=== PATIENT | male | born 1940 | race Caucasian/White ===

== ENCOUNTER → 2023-07-10 09:43 | Outpatient (REF) | payer OTHER, SELFPAY | LOC: RAD 09:43 | PROVIDERS: ATTENDING PHYSICIAN Physician Assistant; FAMILY PHYSICIAN Family Medicine | DX: I73.9 Peripheral vascular disease, unspecified (principal); I65.21 Occlusion and stenosis of right carotid artery | CPT/HCPCS: 93880; 93922; 93925 ==

== ENCOUNTER → 2024-06-19 10:15 | Outpatient (REF) | payer OTHER, SELFPAY | LOC: RAD 10:15 | PROVIDERS: ATTENDING PHYSICIAN Family Medicine | DX: I73.9 Peripheral vascular disease, unspecified (principal) | CPT/HCPCS: 93922; 93925 ==

== ENCOUNTER → 2024-06-27 15:16 | Outpatient (REF) | payer OTHER, SELFPAY | LOC: RAD 15:16 | PROVIDERS: ATTENDING PHYSICIAN Surgery Vascular Surgery; FAMILY PHYSICIAN Family Medicine | DX: Z98.890 Other specified postprocedural states (principal); I65.23 Occlusion and stenosis of bilateral carotid arteries | CPT/HCPCS: 93880 ==

== ENCOUNTER 2024-07-06 01:52 | Emergency (ER) | payer OTHER, SELFPAY ==
[2024-07-06 02:12] VITALS: BP 194/76
[2024-07-06 03:40] VITALS: BMI 23.7
[2024-07-06 03:42] VITALS: BP 178/75
--- NOTE | 2024-07-06 03:49 | ED.GENMED ---
History of Present Illness
General
Chief Complaint: Extremity Pain (non-traumatic)
Time Seen by Provider: 07/06/24 03:47
History of Present Illness
History of Present Illness:
TIME OF INITIAL ENCOUNTER: 3:50 AM
HPI: The patient presents with worsening right foot pain. He has known arterial insufficiency. He states that he had stents placed in the left lower extremity several years ago. The pain is now on the right side. The pain is more toward the
medial aspect. He is on aspirin. He is a former smoker.
EXAM:
GENERAL: Well appearing in no distress
HEENT: Moist oral mucosa
CARDIOVASCULAR: He has easily palpable femoral pulses bilaterally, left foot is dopplerable, right foot PT is dopplerable but I could not Doppler a right DP
PULMONARY: No respiratory distress, breath sounds are clear and equal
ABDOMEN: Soft with no peritoneal signs, no tenderness
NEUROLOGIC: Excellent strength all extremities, no coordination deficits
PSYCHIATRIC: Appropriate mental status, normal insight and judgement
EXTREMITIES: See above, bunion noted with crusting to the right foot
SKIN: No rash, no lesions
NUMBER AND COMPLEXITY OF PROBLEMS ADDRESSED AT THE ENCOUNTER
� Chronic conditions affecting care: Renal insufficiency, CAD/[place], vascular disease
� Acute Exacerbation and/or Progression of Chronic Illness: This is a worsening of a chronic issue
� Differential Diagnosis includes: Exacerbation of peripheral arterial disease, cellulitis, bunion
AMOUNT AND/OR COMPLEXITY OF DATA TO BE REVIEWED AND ANALYZED
� I performed an independent evaluation of and my interpretation is:
EKG:
CT:
X-rays:
Laboratory Studies:
Other:
� Review of other/old records: The patient had an ultrasound 2 weeks ago that showed severely decreased RIAZ measuring 0.36 down from 0.49, proximal profunda femoris is occluded SFA is extensively diseased reconstitution of
dampened monophasic continuous flow within the popliteal artery, monophasic pedal waveforms
� Clinical information was obtained by an independent historian:
� Prescriptions/Medications Considered but not given:
� Further testing considered but not performed: Considered CTA however the patient has known CKD with creatinine over 2
RISK OF COMPLICATIONS AND/OR MORBIDITY OR MORTALITY OF PATIENT MANAGEMENT
� Social determinants of health affecting care: Lives at home
� Discussion with other providers: I discussed case with Dr. Lam who recommends to hold off on CTA. He also recommends the patient follow-up with Dr. Fay as an outpatient.
� Escalation of care including admission/observation vs risk of discharge considered: The patient describes his symptoms as a slow progression and worsening over the past month or so. I reviewed the ultrasound report. The cap
refill is less than 1.5 seconds to the right foot. The patient at times tells me that there is no significant pain at other times describes the pain is rather severe and needs something for pain. Will give a very short course of Ultram.
ANY OTHER UPDATES:
Past History
Past History
ED Past Medical History: CAD, HTN, Hypercholesterolemia, NIDDM, [place] and Other
ED Past Surgical History: Cardiac (cardiac stent) and Other
Social History
Tobacco: Smoker
Alcohol: None
Drug: None
Personal:
Living: with family
Employment: Retired
Family History
Family History: Diabetes; Negative Early CAD
Phy Exam
Physical Exam
Physical Exam:
See HPI
Course
Orders/Labs/Results
Orders:
Orders
07/06/24 04:21
Tramadol HCl [Ultram] 50 mg PO NOW STA
Vital Signs
Initial and Last Documented VS:
Initial Vital Signs
Temp Pulse Resp BP Pulse Ox
36.9 C 65 20 194/76 98
07/06/24 02:12 07/06/24 02:12 07/06/24 02:12 07/06/24 02:12 07/06/24 02:12
Last Documented Vital Signs
Temp Pulse Resp BP Pulse Ox
36.9 C 66 18 178/75 99
07/06/24 02:12 07/06/24 03:42 07/06/24 03:42 07/06/24 03:42 07/06/24 03:42
*Critical Care Note
Total Time (30-74mins, 75-104mins- exclusive of procedures): Not Applicable
ED Attending Note
-
Portions of this chart may have been created with voice recognition software.� Occasional wrong word or��sound alike� substitutions may have occurred due to the inherent limitations of voice recognition software.
Discharge Plan
Departure
Patient Disposition: Home (Routine Discharge)
Date of Disposition: 07/06/24
Time of Disposition: 04:21
Patient with high blood pressure during this ER visit?: Yes
Discharge Problem:
PAD (peripheral artery disease)
Instructions: Peripheral artery disease and claudication, BLOOD PRESSURE
Prescriptions:
New
tramadol 50 mg tablet
50 mg PO BID PRN (Reason: Pain) Qty: 14 0RF
No Action
lisinopril 5 MG tablet
5 mg PO DAILY
ezetimibe 10 MG tablet
10 mg PO DAILY
nitroglycerin 0.4 MG tablet, sublingual
0.4 mg sublingual [id number] PRN (Reason: chest pain) Qty: 25 2RF
acetaminophen 325 MG tablet
650 mg PO Q4HPRN PRN (Reason: mild pain)
clopidogrel 75 MG tablet
75 mg PO DAILY
amlodipine 10 MG tablet
10 mg PO DAILY
metoprolol tartrate 25 MG tablet
25 mg PO BID
cholecalciferol (vitamin D3) 1,000 UNITS tablet
1,000 units PO DAILY
isosorbide mononitrate 30 MG tablet extended release 24 hr
30 mg PO DAILY
tamsulosin 0.4 MG capsule
0.4 mg PO DAILY
insulin glargine [Basaglar KwikPen U-100 Insulin] 100 UNIT/ML insulin pen
12 units SC HS
apixaban [Eliquis] 5 MG tablet
5 mg PO BID
Patient Comments:
patient last day is 01/06/21
sodium bicarbonate 650 MG tablet
650 mg PO TID Qty: 30 1RF
Referrals:
UNKNOWN - PT DOES,NOT KNOW [Family Provider] -
Activity Restrictions/Additional Instructions:
I spoke to Dr. Lam, partner of Dr. Fay. We agreed to hold off on the CTA for now as your kidney function is impaired. Your creatinine from this past February according to your records was over 2. If we were not doing CTA tonight it can
make your kidney function worse. He said that he would speak to Dr. Fay and let him know that you were in the Emergency Department. I recommend you call Dr. Fay's office tomorrow to see what more they could do for you. I am sending a prescription
for Ultram to your pharmacy.
Interventions
Interventions:
*Risk Screen - Suicide Last Done: 07/06/24 02:12
*General Assessment Last Done: 07/06/24 02:12
*Neglect/Abuse Screening Last Done: 07/06/24 02:12
*ED- Fall Risk Assessment Last Done: 07/06/24 02:12
*ED COVID-19 Vaccine History Last Done: 07/06/24 02:20
*Nursing Disposition Last Done: 07/06/24 04:38
ED-Skin Assessment Last Done: 07/06/24 04:17
ED-Peripheral Vascular Assessment Last Done: 07/06/24 04:17
ED-Musculoskeletal Assessment Last Done: 07/06/24 04:17
Discharge Date and Time
Discharge Date/Time: 07/06/24 04:39
Print Language: BRITISH
[2024-07-06] MEDS: ULTRAM 50 MG PO (04:27)
== END 2024-07-06 04:39 | disposition home or self-care (01) ==
LOC: EMR 01:52
PROVIDERS: EMERGENCY PHYSICIAN Emergency Medicine
DX: E11.51 Type 2 diabetes mellitus with diabetic peripheral angiopathy without gangrene (principal); I25.10 Atherosclerotic heart disease of native coronary artery without angina pectoris; I10 Essential (primary) hypertension; E78.00 Pure hypercholesterolemia, unspecified; I25.2 Old myocardial infarction; Z79.82 Long term (current) use of aspirin; Z83.3 Family history of diabetes mellitus; Z95.5 Presence of coronary angioplasty implant and graft
CPT/HCPCS: 99282

== ENCOUNTER 2024-07-10 08:25 | Inpatient (IN) | payer OTHER, SELFPAY ==
[2024-07-08 18:26] VITALS: BP 178/68
[2024-07-08 18:41] LABS: % Basophils 0.8 % (0-2); % Eosinophils 1.9 % (0-6); % Immature Granulocytes 0.3 % (0-0.5); % Lymphocytes 23.4 % (20.5-51.1); % Monocytes 8.8 % (1.7-9.3); % Neutrophils 64.8 % (42.2-75.2); Absolute Basophils 0.1 10^3/uL (0-0.2); Absolute Eosinophils 0.1 10^3/uL (0-0.7); Absolute Lymphocytes 1.8 10^3/uL (1.2-3.4); Absolute Monocytes 0.7 10^3/uL (0.1-0.6); Absolute Neutrophils 4.9 10^3/uL (1.4-6.5); Hematocrit 29.6 % (39.0-52.0); Hemoglobin 9.6 g/dL (13.0-18.0); Mean Corp Hgb Conc. 32.4 g/dL (33.0-37.0); Mean Corpuscular Hgb 30.7 pg (27.0-31.0); Mean Corpuscular Volume 94.6 fL (80.0-94.0); Mean Platelet Volume 10.8 fL (7.4-10.4); Nucleated Red Blood Cells % 0 % (-); Platelet Count 231 10^3/uL (130-400); Red Blood Cell Count 3.13 10^6/uL (4.70-6.10); Red Cell Dist. Width 15.9 % (11.5-14.5); White Blood Cell Count 7.5 10^3/uL (4.8-10.8)
[2024-07-08 18:51] LABS: APTT 29.1 Sec (23.4-35.0)
[2024-07-08 18:58] LABS: ALT (SGPT) 15 U/L (0-50); AST (SGOT) 17 U/L (17-59); Albumin 3.7 g/dl (3.5-5.0); Alkaline Phosphatase 59 U/L (38-126); Blood Urea Nitrogen 44 mg/dl (9-20); Calcium 9.8 mg/dl (8.4-10.2); Carbon Dioxide 31 mmol/L (22-30); Chloride 102 mmol/L (98-107); Glucose 304 mg/dl (70-99); Potassium 4.5 mmol/L (3.5-5.1); Sodium 140 mmol/L (135-145); Total Bilirubin 0.4 mg/dl (0.2-1.3); Total Protein 6.8 g/dl (6.3-8.2); eGFR 32.71
[2024-07-08 21:55] VITALS: BP 175/62
[2024-07-08 22:00] VITALS: BP 159/63
--- NOTE | 2024-07-08 22:08 | ED.GENMED ---
History of Present Illness
<Shara Gardner PA-C - Last Filed: 07/09/24 01:53>
General
Chief Complaint: Vascular Symptoms
Source: patient
Exam Limitations: none
Time Seen by Provider: 07/08/24 21:33
Nursing documentation reviewed up to this point in time: agreed with
History of Present Illness
History of Present Illness:
Patient is an 84-year-old male history of PAD, CAD, hypertension, hyperlipidemia, diabetes presenting to the emergency department with right leg pain. Patient states pain has been gradually worsening and is now keeping up at night. He reports a
lengthy history of arterial disease in his bilateral lower legs. He states that pain in his right leg is gotten worse over the past few weeks. He states pain is not but acute onset and seemed gradual in nature. He denies any numbness or weakness
in his lower legs. Patient states that he was in the emergency department 2 nights ago with similar complaint and discharged home with a pain medication.
He states that he is scheduled to have a CTA aorta with runoff on July 18. However�given his pain became worse he spoke to his vascular surgeon, Dr. Fay who recommended that he come to the emergency department for CTA imaging and admission.
Patient denies any chest pain, shortness of breath, or fevers.
Past History
<Shara Gardner PA-C - Last Filed: 07/09/24 01:53>
Past History
ED Past Medical History: CAD, HTN, Hypercholesterolemia, NIDDM, [place] and Other
ED Past Surgical History: Cardiac (cardiac stent) and Other
Social History
Tobacco: Smoker
Alcohol: None
Drug: None
Personal:
Living: with family
Employment: Retired
Family History
Family History: Diabetes; Negative Early CAD
Review of Systems
<Shara Gardner PA-C - Last Filed: 07/09/24 01:53>
Review of Systems
Allergies reviewed?: Yes
All Other Systems: ROS reviewed and negative except as documented in HPI and ROS
Phy Exam
<Shara Gardner PA-C - Last Filed: 07/09/24 01:53>
Physical Exam
Physical Exam:
Vitals: Hypertensive, otherwise vital signs stable. Afebrile
General: Patient is well appearing, no acute distress. Nontoxic appearing
Skin: Warm and dry, no rashes or lesions
Head: Normocephalic, atraumatic
Eyes: Sclera nonicteric. EOMs intact. No nystagmus.
Throat: Protecting airway
Neck: Normal ROM, no cervical spine tenderness, no meningismus
Cardiac: Regular rate and rhythm, no murmurs.
Pulm: Normal respiratory effort, no wheezes, rales, rhonchi heard on exam.
Abdomen: No abdominal tenderness.
Extremities: Easily palpable bilateral femoral pulses. Right DP pulse by Doppler. Left DP pulse by Doppler. Capillary refill bilateral lower extremities normal. Sensation grossly intact in bilateral lower extremities.
Neuro: AAOx3. Grossly intact.
Psychiatric: Normal affect.
Course
<Shara Gardner PA-C - Last Filed: 07/09/24 01:53>
Orders/Labs/Results
Orders:
Orders
07/08/24 18:34
Complete Blood Count/With Diff Urgent
Comprehensive Metabolic Panel Urgent
PTT Urgent
07/08/24 23:36
Insulin Aspart [NOVOLOG vial] 4 units SC NOW STA
07/08/24 23:45
0.9% Sodium Chloride 1000 ml [Nss] 1,000 ml IV 80 mls/hr
Abnormal Lab Results
07/08/24
18:34
RBC 3.13 L 10^6/uL
(4.70-6.10)
Hgb 9.6 L g/dL
(13.0-18.0)
Hct 29.6 L %
(39.0-52.0)
MCV 94.6 H fL
(80.0-94.0)
MCHC 32.4 L g/dL
(33.0-37.0)
RDW 15.9 H %
(11.5-14.5)
MPV 10.8 H fL
(7.4-10.4)
Absolute Monos (auto) 0.7 H 10^3/uL
(0.1-0.6)
Carbon Dioxide 31 H mmol/L
(22-30)
BUN 44 H mg/dl
(9-20)
Creatinine 2.0 H mg/dL
(0.7-1.3)
Glucose 304 H mg/dl
(70-99)
07/08/24 18:34
07/08/24 18:34
Vital Signs
Initial and Last Documented VS:
Initial Vital Signs
Temp Pulse Resp BP Pulse Ox
97.8 F 62 18 178/68 99
07/08/24 18:26 07/08/24 18:26 07/08/24 18:26 07/08/24 18:26 07/08/24 18:26
Last Documented Vital Signs
Temp Pulse Resp BP Pulse Ox
97.8 F 57 17 181/50 97
07/08/24 18:26 07/08/24 23:00 07/08/24 23:00 07/08/24 23:00 07/08/24 23:00
<Blue Hernandez, DO - Last Filed: 07/08/24 23:19>
Orders/Labs/Results
Orders:
Orders
07/08/24 18:34
Complete Blood Count/With Diff Urgent
Comprehensive Metabolic Panel Urgent
PTT Urgent
07/08/24 23:36
Insulin Aspart [NOVOLOG vial] 4 units SC NOW STA
07/08/24 23:45
0.9% Sodium Chloride 1000 ml [Nss] 1,000 ml IV 80 mls/hr
Abnormal Lab Results
07/08/24
18:34
RBC 3.13 L 10^6/uL
(4.70-6.10)
Hgb 9.6 L g/dL
(13.0-18.0)
Hct 29.6 L %
(39.0-52.0)
MCV 94.6 H fL
(80.0-94.0)
MCHC 32.4 L g/dL
(33.0-37.0)
RDW 15.9 H %
(11.5-14.5)
MPV 10.8 H fL
(7.4-10.4)
Absolute Monos (auto) 0.7 H 10^3/uL
(0.1-0.6)
Carbon Dioxide 31 H mmol/L
(22-30)
BUN 44 H mg/dl
(9-20)
Creatinine 2.0 H mg/dL
(0.7-1.3)
Glucose 304 H mg/dl
(70-99)
07/08/24 18:34
07/08/24 18:34
Vital Signs
Initial and Last Documented VS:
Initial Vital Signs
Temp Pulse Resp BP Pulse Ox
97.8 F 62 18 178/68 99
07/08/24 18:26 07/08/24 18:26 07/08/24 18:26 07/08/24 18:26 07/08/24 18:26
Last Documented Vital Signs
Temp Pulse Resp BP Pulse Ox
97.8 F 57 17 181/50 97
07/08/24 18:26 07/08/24 23:00 07/08/24 23:00 07/08/24 23:00 07/08/24 23:00
<Shara Gardner PA-C - Last Filed: 07/09/24 01:53>
MDM/Problems Addressed
Differential Diagnosis Includes:
Not limited to: Peripheral arterial disease, acute arterial occlusion, venous stasis, etc.
MDM/Problems Addressed:
84-year-old male with known peripheral arterial disease presenting with worsening pain in right lower extremity. Pain not acute onset in nature. He is ambulating without difficulty. No weakness or sensory deficit of right lower extremity.
Patient scheduled for CTA with runoff in a few weeks. Recently seen in ED 2 days ago and discharged due to elevated kidney function and concern with pursuing CTA. Vitals and physical exam as above.
Overall impression is likely acute worsening in patient's peripheral arterial disease. Did review patient's arterial ultrasound performed in mid June which shows worsening disease specifically in right lower extremity with decreasing RIAZ. Labs
obtained in triage and reviewed. Anemia noted which appears chronic for patient likely secondary to CKD. Renal insufficiency also noted however creatinine of 2 seems to be patient's baseline dating back to 2020. Case was discussed with vascular
surgery.
Exam not consistent with acute ischemic limb. He has palpable femoral pulses bilaterally and bilateral dopplerable DP pulses. However�patient does seem to have acute worsening his peripheral arterial disease with significant discomfort. I feel
patient would likely require CTA despite elevated kidney function. No evidence of acute infectious process. Will admit patient to hospital for pain control, vascular surgery consult, likely CTA aorta with runoff for better evaluation. Patient
accepted to hospitalist service in stable condition. Patient seen with attending physician.
Chronic conditions affecting care:
PAD, CAD, hypertension, hyperlipidemia, diabete
Acute Exacerbation and/or Progression of Chronic Illness:
Acute worsening of peripheral arterial disease, acutely hypertensive, acute hyperglycemia
<Shara Gardner PA-C - Last Filed: 07/09/24 01:53>
*Pulse Oximetry
Patient hypoxic: no
*EKG
Interpreted by ED Provider?: NA
*Student Success Advisor Interpretation
Rate: Student Success Advisor- N/A
*Critical Care Note
Total Time (30-74mins, 75-104mins- exclusive of procedures): Not Applicable
Data Reviewed
Review of Other/Old Records Reveals: Radiology Studies (Arterial ultrasound from 06/19/2024 which showed severely decreased RIAZ of right lower extremity measuring 0.36 down from 0.49) and Discharge Summary (ED discharge summary from 07/06/2024 with
peripheral arterial disease)
<Shara Gardner PA-C - Last Filed: 07/09/24 01:53>
Patient Management
Discussion with other providers: Hospitalist and Carrier Associate (Case discussed with vascular surgery)
Escalation/DeEscalation of care consider admission/obs:
Admit for vascular surgery consult, possible CTA with runoff
ED Attending Note
<Shara Gardner PA-C - Last Filed: 07/09/24 01:53>
-
Portions of this chart may have been created with voice recognition software.� Occasional wrong word or��sound alike� substitutions may have occurred due to the inherent limitations of voice recognition software.
<Blue Hernandez DO - Last Filed: 07/08/24 23:19>
ED Attending Note
Patient seen and examined by attending physician: Yes
I performed the substantive portion of visit, reviewed & personally made and approve the management plan that is documented in note by myself or KOKO.: Yes
ED Attending Note:
Seen with INO examined independently elderly male with peripheral vascular disease, but of a poor historian was seen here recently for similar complaints apparently thought process was to hold on CT angiogram due to elevated creatinine patient
returns this evening with rest pain feet appear to be perfused recent arterial Doppler noted we will try to track down some records to see what the plan is
Discharge Plan
Departure
Patient Disposition: Admit
Date of Disposition: 07/08/24
Time of Disposition: 23:37
Presentation/result/management discussed w/ accepting MD/DO: Hospitalist
Discharge Problem:
PAD (peripheral artery disease)
Prescriptions:
No Action
lisinopril 5 MG tablet
5 mg PO DAILY
ezetimibe 10 MG tablet
10 mg PO DAILY
nitroglycerin 0.4 MG tablet, sublingual
0.4 mg sublingual [id number] PRN (Reason: chest pain) Qty: 25 2RF
acetaminophen 325 MG tablet
650 mg PO Q4HPRN PRN (Reason: mild pain)
clopidogrel 75 MG tablet
75 mg PO DAILY
amlodipine 10 MG tablet
10 mg PO DAILY
metoprolol tartrate 25 MG tablet
25 mg PO BID
cholecalciferol (vitamin D3) 1,000 UNITS tablet
1,000 units PO DAILY
isosorbide mononitrate 30 MG tablet extended release 24 hr
30 mg PO DAILY
tamsulosin 0.4 MG capsule
0.4 mg PO DAILY
insulin glargine [Basaglar KwikPen U-100 Insulin] 100 UNIT/ML insulin pen
12 units SC HS
apixaban [Eliquis] 5 MG tablet
5 mg PO BID
Patient Comments:
patient last day is 01/06/21
sodium bicarbonate 650 MG tablet
650 mg PO TID Qty: 30 1RF
tramadol 50 mg tablet
50 mg PO BID PRN (Reason: Pain) Qty: 14 0RF
Referrals:
Birgit Gardner MD [Family Provider] -
Interventions
Interventions:
*Risk Screen - Suicide Last Done: 07/08/24 21:04
*General Assessment Last Done: 07/08/24 18:28
*Neglect/Abuse Screening Last Done: 07/08/24 21:03
*ED- Fall Risk Assessment Last Done: 07/08/24 21:03
*ED COVID-19 Vaccine History Last Done: 07/08/24 21:03
ED- Cardiac Assessment Last Done: 07/08/24 20:59
ED- Pulmonary Assessment Last Done: 07/08/24 20:59
ED-Peripheral Vascular Assessment Last Done: 07/08/24 20:59
ED-Skin Assessment Last Done: 07/08/24 20:59
Discharge Date and Time
Print Language: [place]
[2024-07-08 23:00] VITALS: BP 181/50
[2024-07-09] VITALS (9 sets, daily range): BP systolic 117–194; BP diastolic 44–78; BMI 24.7
[2024-07-09] MEDS: NSS 1000 IV (00:06)
[2024-07-09] MEDS: NOVOLOG vial 4 UNITS SC (00:07)
--- NOTE | 2024-07-09 02:07 | HPS.HSE ---
Family Physician
-
Family Physician: Birgit Gardner
Chief Complaint
-
RLE Pain
History of Present Illness
Patient is an 84y M with PMH significant for ASCVD, DM-II and CKD IV who presents to ED for evaluation of PAD / LE pain. Patient states that he has been having increasing rest pain in the R > L LEs over the past several weeks. he has been
evaluated by his Vascular Surgeon and ABIs have shown significant decrease in perfusion specifically in the RLE. CT Angio was discussed for further evaluation; however, there was concern regarding patient's renal function. Some changes were made
as an outpatient; however, no significant improvement in his renal function was appreciated.
Patient was referred to the ED for admission by Vascular Surgery for further evaluation.
Medical History
Past Medical History
Past Medical History: Reports Other
Additional Past Medical History:
ASCVD (CAD, Carotid Disease, PAD, TIA)
Hypertension
DM-II
CKD IV
Hypothyroidism
BPH
NAFLD
Anemia of CKD
Rosacea
Nephrolithiasis
Past Surgical History: Reports Other
Additional Past Surgical History:
PTCA with Stent
Left SFA Stent
Left Carotid Stent
Right CEA
Cystoscopy / Stent
Bilateral Inguinal Herniorrhaphy
Social History
Tobacco: Smoker
Alcohol: None
Drug: None
Family History
Family History: Not pertinent
Allergies / Home Medications
Allergies reflects when Allergies were last updated in [facility].
Home Medications with original date entered in [facility]
Allergy/Medication List:
Allergies
Allergy/AdvReac Type Severity Reaction Status Date / Time
[id number] Reductase Allergy leg pain, Verified 07/06/24 02:12
Inhibitor Myalgias
[Statins: Hmg-Coa Reductase
Inhibito]
Home Medications
ezetimibe 10 mg tablet 10 mg PO DAILY High cholesterol 11/24/16
nitroglycerin 0.4 mg sublingual tablet 0.4 mg sublingual [id number] PRN chest pain ##25 11/25/16
amlodipine 10 mg tablet 10 mg PO DAILY Blood pressure 11/13/20
cholecalciferol (vitamin D3) 25 mcg (1,000 unit) tablet 1,000 units PO DAILY Supplement 11/13/20
isosorbide mononitrate 30 mg tablet,extended release 24 hr 30 mg PO DAILY Blood pressure 11/13/20
metoprolol tartrate 25 mg tablet 50 mg PO BID Blood pressure 11/13/20
tamsulosin 0.4 mg capsule 0.4 mg PO DAILY Urinary issue 11/13/20
insulin glargine 100 unit/mL (3 mL) subcutaneous pen (Basaglar KwikPen U-100 Insulin) 16 units SC HS 11/23/20
aspirin 81 mg chewable tablet 81 mg PO DAILY 07/09/24
empagliflozin 10 mg tablet (Jardiance) 10 mg PO DAILY 07/09/24
ferrous gluconate 324 mg (38 mg iron) tablet 324 mg PO DAILY 07/09/24
finasteride 5 mg tablet 5 mg PO DAILY 07/09/24
nateglinide 120 mg tablet 120 mg PO TID 07/09/24
sodium bicarbonate 650 mg tablet 1,300 mg PO BID 07/09/24
Review of Systems
-
History Source: Patient
A 12 point ROS was completed and negative except as noted: Yes
Constitutional: Denies Fever or Chills
Respiratory: Denies Cough or Trouble Breathing
Cardiac: Denies Chest Pain or Palpitations
Abdomen/GI: Denies Abdominal Pain, Nausea, Vomiting or Diarrhea
: Denies Dysuria or Frequency
Musculoskeletal: Reports Other (Foot / leg pain.); Denies Joint Pain or Edema
Neurological: Denies Dizzy or Headache
Psych: Denies Depression or Anxiety
Physical Exam
Vital Signs
Vital Signs
Temp Pulse Resp BP Pulse Ox
97.8 F 57 17 181/50 97
07/08/24 18:26 07/08/24 23:00 07/08/24 23:00 07/08/24 23:00 07/08/24 23:00
Physical Exam
General: Other (84y M in no acute distress.)
HEENT: Moist mucous membranes and PERRLA
Respiratory: Clear; No Wheezes, Rales or Rhonchi
Cardiac: S1/S2, Regular Rhythm and Murmur (III/ RUBA)
GI: Soft, Non Tender, Non Distended and Normal Bowel Sounds
Musculoskeletal: No Clubbing, No Cyanosis and No Edema
Skin: Other (Small callused lesion over the R MTP joint. No discharge, erythema, etc.)
Neuro: AO x 3
Hematologic/Lymphatic: Other (Pulses not palpable in b/l feet. Appreciated by Doppler.)
Laboratory Results
-
07/08/24 18:34
07/08/24 18:34
Laboratory Results
APTT 29.1 Sec (23.4-35.0) 07/08/24 18:34
Total Bilirubin 0.4 mg/dl (0.2-1.3) 07/08/24 18:34
AST 17 U/L (17-59) 07/08/24 18:34
ALT 15 U/L (0-50) 07/08/24 18:34
Alkaline Phosphatase 59 U/L (38-126) 07/08/24 18:34
Impression/Plan
-
A/P: Patient is an 84y M with PMH significant for ASCVD, hypertension and CKD IV who presents to ED at the direction of Vascular Surgery for evaluation of limb threatening ischemia.
ASCVD / PAD
Limb Threatening Ischemia - RLE
- Observe overnight for further evaluation and treatment.
- Patient requires further evaluation with possible dx / tx angiography.
- Vascular Surgery consulted for further recommendations.
- Defer specific studies to them.
- Continue current med regimen including ASA, statin, etc.
CKD IV
- Stable. Renal function is stable.
- Unlikely that SCr will improve to any significant degree as this appears to be baseline.
- Hold Jardiance acutely.
- Gentle IVFs overnight.
- Nephrology consult for additional recommendations / renal protection strategies.
- Follow for changes in renal function following any angio / dye load procedures.
Benign Hypertension
- Stable. Continue current med regimen.
DM-II
- Stable. Hold oral medications acutely.
- Continue basal insulin.
- Follow glucose and cover with SSI as needed.
- Update A1C.
Hypothyroidism
- Stable. Continue T4 supplementation.
BPH
- Stable. Continue tamsulosin / finasteride.
- Bladder scan protocol.
Anemia of Chronic Disease
- Stable. Hgb is at / near known baseline.
- Continue iron supplementation.
- Follow for any changes.
DVT Prophylaxis: Subcut heparin
Code Status: DNR
[2024-07-09 05:17] LABS: Hematocrit 30.6 % (39.0-52.0); Hemoglobin 10.2 g/dL (13.0-18.0); Mean Corp Hgb Conc. 33.3 g/dL (33.0-37.0); Mean Corpuscular Hgb 30.8 pg (27.0-31.0); Mean Corpuscular Volume 92.4 fL (80.0-94.0); Mean Platelet Volume 11.1 fL (7.4-10.4); Platelet Count 226 10^3/uL (130-400); Red Blood Cell Count 3.31 10^6/uL (4.70-6.10); Red Cell Dist. Width 15.6 % (11.5-14.5); White Blood Cell Count 8.8 10^3/uL (4.8-10.8)
[2024-07-09 05:44] LABS: Blood Urea Nitrogen 43 mg/dl (9-20); Calcium 9.9 mg/dl (8.4-10.2); Carbon Dioxide 25 mmol/L (22-30); Chloride 107 mmol/L (98-107); Estimated Creatinine Clearance 30 ml/min; Glucose 165 mg/dl (70-99); Potassium 4.3 mmol/L (3.5-5.1); Sodium 143 mmol/L (135-145); eGFR 37.12
[2024-07-09 07:58] LABS: Glucose - Point of Care 221 mg/dl (70-99)
[2024-07-09] MEDS: SODIUM BICARBONATE 1300 MG PO ×2 (08:59→20:00)
[2024-07-09] MEDS: PROSCAR 5 MG PO (08:59)
[2024-07-09] MEDS: HEPARIN 5000 UNITS SC ×2 (09:00→20:00)
[2024-07-09] MEDS: LOPRESSOR 50 MG PO ×2 (09:00→20:00)
[2024-07-09] MEDS: VITAMIN D3 (cholecalciferol) 25 MCG PO (09:00)
[2024-07-09] MEDS: LOW STRENGTH ASPIRIN 81 MG PO (09:00)
[2024-07-09] MEDS: FLOMAX 0.4 MG PO (09:00)
[2024-07-09] MEDS: NORVASC 10 MG PO (09:00)
[2024-07-09] MEDS: IMDUR (EXTENDED RELEASE) 30 MG PO (09:04)
[2024-07-09] MEDS: TYLENOL 650 MG PO (09:06)
[2024-07-09 09:09] LABS: Glycohemoglobin (HgbA1c) 10.3 % (4.0-5.6)
[2024-07-09] MEDS: NOVOLOG FLEXPEN-LOW RESISTANCE 2 UNITS SC ×2 (09:19→13:05)
--- NOTE | 2024-07-09 09:28 | CON.VAS ---
Consultation
Consultation Request
Date/Time Consultation Performed: 07/09/24 1000
Requesting Provider: Hospitalist
Performing Provider: Nory Yañez, POLICE OFFICER BOOKING-C for Chase Fay MD
Reason for Consultation: Right lower extremity chronic limb threatening ischemia
Medical History
-
Chief Complaint: Right lower extremity foot pain
History of Present Illness:
This is an 84-year-old male with significant past medical history for hypercholesterolemia, rosacea, coronary artery disease, peripheral vascular disease, carotid stenosis, WI, BPH, hypothyroidism, aortic atherosclerosis, diabetes, anemia, GERD,
hypertension, and CKD stage IV who presented to [facility] ED on 07/08/2024 with reports of continued right foot rest pain. Patient's daughter at bedside who is also contributing to HPI. Patient and daughter endorse that for over the past 3 weeks
patient has been experiencing life-limiting claudication with persistent rest pain that has made sleeping at night nearly impossible. Both daughter and patient endorse that he did not have an acute change to pain but ultimately felt he could not
continue with current right foot pain, which prompted ED evaluation. Of note patient is known to our service and sees Dr. Chase Fay, he was last seen in our office on 07/02/2024, he had obtained arterial duplex with RIAZ/TBI and it was noted that he
had a decrease in his right sided RIAZ from 0.49 to 0.36 and TBI down to 0.16, with an accompanying monophasic waveforms suggestive of inflow disease. Prior to devising surgical plan Dr. Fay wanted to obtain CT angio aorta with runoff, however, due
to his CKD stage IV arrangements needed to be made with IV hydration and clearance from nephrology prior to obtaining study, whilst this was being coordinated patient decided he could no longer tolerate right foot pain hence presentation to ED
yesterday. Currently he reports pain at right foot is tolerable and he is resting comfortably in stretcher, he does endorse that he is extremely fatigued as he has right foot pain interrupts his sleep multiple times a night. Denies motor changes or
decrease sensation at right foot, endorses that he does have peripheral sensation but it is blunted with his history of peripheral neuropathy. He does continue to smoke.
Past Medical History
Past Medical History: CAD, GERD, HTN, Hypercholesterolemia, Hypothyroidism, IDDM, WI and Other (rosacea, peripheral vascular disease, carotid stenosis, BPH, aortic atherosclerosis, anemia, and CKD stage IV)
Past Surgical History: Other (Right carotid endarterectomy 2000, left carotid artery stenting, cardiac catheterization with PCI 2010, bilateral inguinal hernia repair 2020, right TCAR 2020)
Social History
Tobacco: Smoker
Personal: Single
Living: With Family
Employment: Retired
Allergies / Home Medications
Allergy/AdvReac Type Severity Reaction Status Date / Time
Bfukkse-WGU-LhK Reductase Allergy leg pain, Verified 07/06/24 02:12
Inhibitor Myalgias
[Statins: Hmg-Coa Reductase
Inhibito]
�Medication �Instructions �Recorded �Confirmed �Type
ezetimibe 10 mg tablet 10 mg PO DAILY High cholesterol 11/24/16 07/09/24 History
nitroglycerin 0.4 mg sublingual 0.4 mg sublingual [id number] PRN 11/25/16 07/09/24 Rx
tablet chest pain ##25
amlodipine 10 mg tablet 10 mg PO QPM Blood pressure 11/13/20 07/09/24 History
cholecalciferol (vitamin D3) 25 1,000 units PO DAILY Supplement 11/13/20 07/09/24 History
mcg (1,000 unit) tablet
isosorbide mononitrate 30 mg 30 mg PO DAILY Blood pressure 11/13/20 07/09/24 History
tablet,extended release 24 hr
metoprolol tartrate 25 mg tablet 50 mg PO BID Blood pressure 11/13/20 07/09/24 History
acetaminophen 325 mg tablet 650 mg PO Q6HPRN PRN mild pain 07/09/24 07/09/24 History
(Tylenol)
aspirin 81 mg chewable tablet 81 mg PO DAILY 07/09/24 07/09/24 History
finasteride 5 mg tablet 5 mg PO QPM 07/09/24 07/09/24 History
insulin glargine 100 unit/mL (3 16 unit SC HS 07/09/24 07/09/24 History
mL) subcutaneous pen (Lantus
Solostar U-100 Insulin)
nateglinide 120 mg tablet 120 mg PO AC 07/09/24 07/09/24 History
silodosin 8 mg capsule 8 mg PO QPM 07/09/24 07/09/24 History
sodium bicarbonate 650 mg tablet 1,300 mg PO BID 07/09/24 07/09/24 History
Review of Systems
-
History Source: Patient
Constitutional: Reports No Symptoms
EENT: Reports No Symptoms
Respiratory: Reports No Symptoms
Cardiac: Reports No Symptoms
Vascular: Reports Leg Pain / Claudication
Abdomen/GI: Reports No Symptoms
: Reports No Symptoms
Musculoskeletal: Reports Muscle Pain
Skin: Reports Other (Increased reddened right foot)
Neurological: Reports No Symptoms
Endocrine: Reports No Symptoms
Physical Exam
Vital Signs
Temp Pulse Resp BP Pulse Ox
97.8 F 49 12 157/61 99
07/08/24 18:26 07/09/24 02:15 07/09/24 02:15 07/09/24 02:00 07/09/24 04:32
Lab Results
07/09/24 05:06
07/09/24 05:06
Physical Exam
General: No Apparent Distress
HEENT: Normocephalic, Anicteric and Atraumatic
Respiratory: Non Labored Respirations
Cardiac: Negative JVD
GI: Soft, Non Tender and Non Distended
Musculoskeletal: No Edema
Skin: Dry and Other (Right foot cooler in comparison to left)
Neuro: AO x 3
Pulses: Bilateral Femoral: +2, Bilateral Dorsalis Pedis: Doppler and Bilateral Posterior Tibial: Doppler
Assessment / Plan
-
Assessment: 84-year-old male with peripheral arterial disease and reports of worsening rest pain at right foot with decreased RIAZ/TBI and monophasic waveform on arterial duplex, appropriate diagnosis for chronic limb threatening ischemia
Plan:
Prior to finalization of vascular surgical revascularization plan will require CTA aorta with runoff to evaluate inflow disease, discussed at length with patient and his daughter risk of contrast in a patient with CKD stage IV. Nephrology
consulted and Dr. Amor also reviewed risk with daughter and patient and all are agreeable to proceed. Per recommendations of nephrology sodium bicarb infusion initiated.
Final surgical plan pending results of CTA.
As needed pain medication
Plan reviewed with attending Dr. Chase Fay who agrees.
[2024-07-09] MEDS: ZOFRAN 4 MG IV (09:34)
--- NOTE | 2024-07-09 09:45 | PTCARENOTE ---
pt became lethargic. unable to keep eyes open. ekg-nsr. bs 210. vss. pt promptly retained to baseline mental status. aware.
[2024-07-09 09:47] LABS: Glucose - Point of Care 210 mg/dl (70-99)
--- NOTE | 2024-07-09 10:01 | CM ---
Addendum entered by Gricelda Landrum 07/09/24 11:09:
[place] form explained to patient; form signed
Original Note:
Met with patient and his daughter, Neisha, at the bedside in the ED
Pharmacy verified: [facility] @ [address]
[place] form explained to daughter
Patient lives in a [place] Level home; Adult son lives with him; 5 steps to enter; 12 steps to upper level; powder room on main floor; 6 steps down to lower level; patient's bath and bedroom on upper level; bath has tub w/ shower
PLOF: ambulates w/ Cane PRN, daughter reported he is independent w/ personal care; needs assistance with other ADLs
DME: Continuous Glucose Monitor
NO SNF or Home Health utilization history
Daughter reported financial insecurity; offered and demonstrated [employer] access via website
Discharge plan to be determined pending hospital course; Case Management will monitor and and support as needed
[2024-07-09] MEDS: SODIUM BICARBONATE 1150 MEQ IV (10:59)
[2024-07-09 12:32] LABS: Glucose - Point of Care 226 mg/dl (70-99)
--- NOTE | 2024-07-09 14:02 | W.CON.NEPH ---
Consultation
-
Date/Time Consultation Requested: 07/09/2024 7 AM
Date/Time Consultation Performed: 07/09/2024 11 AM
Requesting Provider: Dr. Matthew
Performing Provider: Dr. Amor
Reason for Consultation: CKD 4
Medical History
-
Chief Complaint: Leg pain
History of Present Illness:
This is an 84-year-old gentleman who is well-known to me for his CKD 4 baseline creatinine possibly 2.0-2.3 who has hypertension on multidrug regimen typically well-controlled. He also has diabetes mellitus type 2 on insulin therapy which has been
uncontrolled for quite some time. He is also a current smoker and has been unable to quit. He has significant peripheral arterial disease. He was set for angiogram given poor lower EXTR recirculation for July 18 but was in the emergency room 3
days ago with significant leg pain he was discharged he has now returned again with persistent leg pain and is now being admitted. Plan is to move up his angiogram. We are asked to consult for his CKD 4 as well as contrast exposure.
Past Medical History
CAD, GERD, HTN, Hypercholesterolemia, Hypothyroidism, diabetes mellitus type 2, HI, rosacea, peripheral vascular disease, carotid stenosis, BPH, aortic atherosclerosis, anemia, and CKD stage IV
Right carotid endarterectomy 2000, left carotid artery stenting, cardiac catheterization with PCI 2010, bilateral inguinal hernia repair 2020, right TCAR 2020
Social History
Tobacco: Smoker
Alcohol: Occasional
Family History
Family History: Not Pertinent
Allergies / Home Medications
Allergy/AdvReac Type Severity Reaction Status Date / Time
Tyygsiv-UFH-AnO Reductase Allergy leg pain, Verified 07/06/24 02:12
Inhibitor Myalgias
[Statins: Hmg-Coa Reductase
Inhibito]
�Medication �Instructions �Recorded �Confirmed �Type
ezetimibe 10 mg tablet 10 mg PO DAILY High cholesterol 11/24/16 07/09/24 History
nitroglycerin 0.4 mg sublingual 0.4 mg sublingual [id number] PRN 11/25/16 07/09/24 Rx
tablet chest pain ##25
amlodipine 10 mg tablet 10 mg PO QPM Blood pressure 11/13/20 07/09/24 History
cholecalciferol (vitamin D3) 25 1,000 units PO DAILY Supplement 11/13/20 07/09/24 History
mcg (1,000 unit) tablet
isosorbide mononitrate 30 mg 30 mg PO DAILY Blood pressure 11/13/20 07/09/24 History
tablet,extended release 24 hr
metoprolol tartrate 25 mg tablet 50 mg PO BID Blood pressure 11/13/20 07/09/24 History
acetaminophen 325 mg tablet 650 mg PO Q6HPRN PRN mild pain 07/09/24 07/09/24 History
(Tylenol)
aspirin 81 mg chewable tablet 81 mg PO DAILY 07/09/24 07/09/24 History
finasteride 5 mg tablet 5 mg PO QPM 07/09/24 07/09/24 History
insulin glargine 100 unit/mL (3 16 unit SC HS 07/09/24 07/09/24 History
mL) subcutaneous pen (Lantus
Solostar U-100 Insulin)
nateglinide 120 mg tablet 120 mg PO AC 07/09/24 07/09/24 History
silodosin 8 mg capsule 8 mg PO QPM 07/09/24 07/09/24 History
sodium bicarbonate 650 mg tablet 1,300 mg PO BID 07/09/24 07/09/24 History
Review of Systems
-
Right leg pain, bilateral lower leg tingling
All other systems: Negative unless noted
Physical Exam
Vital Signs
Vital Signs
Temp Pulse Resp BP Pulse Ox
98 F 61 16 151/58 90
07/09/24 11:24 07/09/24 13:30 07/09/24 13:30 07/09/24 11:12 07/09/24 13:30
Lab Results
WBC 8.8 10^3/uL (4.8-10.8) 07/09/24 05:06
RBC 3.31 10^6/uL (4.70-6.10) L 07/09/24 05:06
Hgb 10.2 g/dL (13.0-18.0) L 07/09/24 05:06
Hct 30.6 % (39.0-52.0) L 07/09/24 05:06
Plt Count 226 10^3/uL (130-400) 07/09/24 05:06
Sodium 143 mmol/L (135-145) 07/09/24 05:06
Potassium 4.3 mmol/L (3.5-5.1) 07/09/24 05:06
Chloride 107 mmol/L (98-107) 07/09/24 05:06
Carbon Dioxide 25 mmol/L (22-30) 07/09/24 05:06
BUN 43 mg/dl (9-20) H 07/09/24 05:06
Creatinine 1.8 mg/dL (0.7-1.3) H 07/09/24 05:06
eGFR 37.12 07/09/24 05:06
Glucose 165 mg/dl (70-99) H 07/09/24 05:06
Calcium 9.9 mg/dl (8.4-10.2) 07/09/24 05:06
Albumin 3.7 g/dl (3.5-5.0) 07/08/24 18:34
Laboratory Tests
01/05/21
11:07
Creatinine 2.3 H
Physical Exam
Patient is awake alert oriented and in no distress. Mood and affect were pleasant, insight and judgment were good. Pupils are equal round and reactive to light, extraocular movements are intact, sclera were anicteric. Hearing was normal, ears and
nose are intact. Oropharynx was clear. Neck was supple with trachea midline and no thyromegaly. Heart was regular rate and rhythm without rubs. Lower extremities without edema. Lungs were clear to auscultation bilaterally and with normal
excursion. Abdomen was soft, nontender, with normal active bowel sounds, and no hepatosplenomegaly. Skin was without rash and with normal turgor. There was erythema in the right lower leg
Data Reviewed
-
Medical Tests (Nuc Med, Echo etc): Image Personally Visualized and interpreted (EKG 07/09/2024 by my reading sinus rhythm septal Q) and Report Reviewed by me (Echocardiogram 07/09/2024 ejection fraction 70% moderate MS, moderate AAS, mild TR)
Labs: Labs Reviewed by me
Old Records: Reviewed
Assessment/Plan
-
Assessment
CKD 4 (2.0)
Peripheral arterial disease
Hypertension
Diabetes mellitus type 2
Tobacco use
Moderate , MR
Right leg pain
Plan
Angiogram today
discussed with patient and his daughter at great length regarding his CKD as well as contrast-induced nephropathy possibility
We discussed potential of dialysis. He is unsure whether or not he would accept dialysis in the long-term though I suspect that he will
Follow BMP bicarb IV fluids with contrast exposure
[2024-07-09 19:12] LABS: Glucose - Point of Care 251 mg/dl (70-99)
[2024-07-09] MEDS: NOVOLOG FLEXPEN-LOW RESISTANCE 3 UNITS SC (19:13)
[2024-07-09 21:56] LABS: Glucose - Point of Care 173 mg/dl (70-99)
[2024-07-09] MEDS: LANTUS 0.16 UNITS SC (22:10)
--- NOTE | 2024-07-10 01:02 | PTCARENOTE ---
Addendum entered by Bryson De Paz RN 07/10/24 04:27:
Pt is irritable that he has a bed alarm. Pt is reminded he is a high fall risk. Pt states that he 'doesn't want to be mess with ' and refuses bladder scan and get weighted. Pt continuos having frequency and difficulty urinating.
Original Note:
Pt is AAOX3, forgetful at times, restless and anxious. Pt was straight cath for retention. Pt has been having the urgency to urinate. Pt becomes easily agitated and wants to left alone. Pt refuses to stay and wants privacy. Pt is a high fall risk
as he is weak. Pt was educated about his condition. Bed alarm in place. Call ennis within reach which he refuses to use.
--- NOTE | 2024-07-10 04:47 | PTCARENOTE ---
Pt is agitated and uncooperative. Pt refuses to stay and started to pack his things and put his clothes. Pt is AAOx1.
[2024-07-10 07:41] VITALS: BP 164/72
[2024-07-10 07:54] LABS: Glucose - Point of Care 175 mg/dl (70-99)
[2024-07-10 08:06] LABS: Blood Urea Nitrogen 41 mg/dl (9-20); Calcium 9.6 mg/dl (8.4-10.2); Carbon Dioxide 27 mmol/L (22-30); Chloride 105 mmol/L (98-107); Estimated Creatinine Clearance 25 ml/min; Glucose 155 mg/dl (70-99); Potassium 4.2 mmol/L (3.5-5.1); Sodium 140 mmol/L (135-145); eGFR 30.85
--- NOTE | 2024-07-10 08:26 | W.PN.UPDATE ---
Update Note
Progress Note Update
CT scan images reviewed yesterday by me. I saw and evaluated the patient this morning and discussed findings with him. He is slightly confused. Discussed everything on the phone with his daughter Christie as well. My discussion was that likely he
has a right external iliac artery at least moderate stenosis that may benefit from angioplasty/stenting. There is a common femoral artery stenosis with plaque that seems to occlude the origin of the profunda. And then the SFA is occluded a few
centimeters beyond its origin. I think he is certainly higher risk for an open surgical procedure though I think that would be the ideal fix for him (femoral endarterectomy with profundoplasty and femoral to below the knee bypass). He does have
some tibial disease with plaque, but I think the below-knee popliteal artery would be a reasonable target. However I think given his overall condition/age etc. minimally invasive therapy may be ideal. Therefore would attempt angiography right
lower extremity with angioplasty/stenting of the SFA. Discussed that with the patient and his daughter over the phone separately. I discussed with them that if unable to balloon and stent to the artery open successfully, then at that time we will
transition to a open surgical approach with bypass. Will obtain vein mapping to assess his vein, but on CT scan imaging it looks very varicose and may not be usable. In that case would need prosthetic to the below-knee popliteal artery. Discussed
all this with them. Risk/benefits fully discussed. They understand all wished to proceed. Given contrast administration yesterday for CT scan, we will plan angiography tomorrow per nephrology recommendations (recommend 1 day for hydration to
stage contrast loads).
[2024-07-10] MEDS: SODIUM BICARBONATE 1300 MG PO ×2 (08:47→22:02)
[2024-07-10] MEDS: VITAMIN D3 (cholecalciferol) 25 MCG PO (08:47)
[2024-07-10] MEDS: LOPRESSOR 50 MG PO ×2 (08:47→22:02)
[2024-07-10] MEDS: PROSCAR 5 MG PO (08:48)
[2024-07-10] MEDS: FLOMAX 0.4 MG PO (08:48)
[2024-07-10] MEDS: LOW STRENGTH ASPIRIN 81 MG PO (08:48)
[2024-07-10] MEDS: NORVASC 10 MG PO (08:48)
[2024-07-10] MEDS: HEPARIN SC (08:48)
--- NOTE | 2024-07-10 09:15 | CON.CAR ---
Addendum entered and electronically signed by Prasanna Rodriguez MD 07/10/24 10:47:
84 yo male with PMH of CAD, prior stenting of RCA and Lcx, PAD, CKD4 admitted with limb threatening ischemia. He denies chest pain. Exam with RRR, II/ systolic murmur at RUSB, no edema. Cr 2.1. EKG with SB, septal infarct. Echo: EF 70-75%,
mild/moderate and MS.
He is high risk, but medically optimized. He can proceed to RLE angiogram and stenting vs bypass. ASA 81mg and metoprolol should not be interrupted.
He is statin intolerant and takes zetia. To revisit PCSK9i as outpatient.
Original Note:
Consultation
Consultation Request
Date/Time Consultation Requested: 07/10/24744
Date/Time Consultation Performed: 07/10/24914
Requesting Provider: Nory GONZALEZ
Performing Provider: Tia GONZALEZ for Dr. Rodriguez
Reason for Consultation: pre-op cardiovascular risk assessment
Medical History
-
Chief Complaint: right foot pain
History of Present Illness:
84 y/o male (former patient of Dr. Cheng with plans to follow with Dr. Mccartney) with CAD with hx stenting and med management (cath 2017: patent prox RCA and Lcx stents with occluded distal RCA and 80% diag lesion), CKD IV, DM, PAD (LICA stent, hx
R CEA, LE PAD), tobacco abuse, statin intolerance, COPD, HTN, and HLD who is here for evaluation of worsening right foot pain with known PAD. Significant PAD (as decribed below) noted on CT imaging and plan is for intervention with Dr. Fay- we are
consulted for pre-operative cardiovascular risk assessment.
Past Medical History
Past Medical History: CAD, COPD, HTN, Hypercholesterolemia, NIDDM and Renal Failure
Social History
Tobacco: Smoker (quit 2 weeks ago)
Family History
Family History: Reviewed & Not Pertinent
Allergies / Home Medications
Allergy/AdvReac Type Severity Reaction Status Date / Time
Dhskdpi-AQM-YtQ Reductase Allergy leg pain, Verified 07/06/24 02:12
Inhibitor Myalgias
[Statins: Hmg-Coa Reductase
Inhibito]
�Medication �Instructions �Recorded �Confirmed �Type
ezetimibe 10 mg tablet 10 mg PO DAILY High cholesterol 11/24/16 07/09/24 History
nitroglycerin 0.4 mg sublingual 0.4 mg sublingual [id number] PRN 11/25/16 07/09/24 Rx
tablet chest pain ##25
amlodipine 10 mg tablet 10 mg PO QPM Blood pressure 11/13/20 07/09/24 History
cholecalciferol (vitamin D3) 25 1,000 units PO DAILY Supplement 11/13/20 07/09/24 History
mcg (1,000 unit) tablet
isosorbide mononitrate 30 mg 30 mg PO DAILY Blood pressure 11/13/20 07/09/24 History
tablet,extended release 24 hr
metoprolol tartrate 25 mg tablet 50 mg PO BID Blood pressure 11/13/20 07/09/24 History
acetaminophen 325 mg tablet 650 mg PO Q6HPRN PRN mild pain 07/09/24 07/09/24 History
(Tylenol)
aspirin 81 mg chewable tablet 81 mg PO DAILY 07/09/24 07/09/24 History
finasteride 5 mg tablet 5 mg PO QPM 07/09/24 07/09/24 History
insulin glargine 100 unit/mL (3 16 unit SC HS 07/09/24 07/09/24 History
mL) subcutaneous pen (Lantus
Solostar U-100 Insulin)
nateglinide 120 mg tablet 120 mg PO AC 07/09/24 07/09/24 History
silodosin 8 mg capsule 8 mg PO QPM 07/09/24 07/09/24 History
sodium bicarbonate 650 mg tablet 1,300 mg PO BID 07/09/24 07/09/24 History
Review of Systems
-
History Source: Patient
All other systems: Negative unless noted
Musculoskeletal: Other (right foot pain)
Physical Exam
Vital Signs
Temp Pulse Resp BP Pulse Ox
97.9 F 62 14 168/77 97
07/10/24 07:41 07/10/24 08:47 07/10/24 07:41 07/10/24 08:48 07/10/24 07:41
Lab Results
07/09/24 05:06
07/10/24 06:57
Physical Exam
General: Well Developed, Well Nourished and No Apparent Distress
HEENT: Normocephalic and Anicteric
Respiratory: Clear and Non Labored Respirations
Cardiac: Regular Rhythm and Murmur (II/ systolic murmur)
Musculoskeletal: No Edema
Skin: Warm and Dry
Neuro: AO x 3
Psych: Calm
Impression / Plan
-
Chronic limb threatening ischemia:
-plan per Dr. Fay: angiography right lower extremity with angioplasty/stenting of the SFA. However, if unable to balloon and stent the artery open successfully, then at that time we will transition to a open surgical approach with bypass. Plan is
for tomorrow (due to CT dye load and need for hydration with kidney dysfunction- nephro on the case).
-Pre-op cardiovascular risk assessment: patient with known significant CAD with details as below. Denies any CP. EKG stable in SR. No SOB. He can do stairs without CP or SOB. Echo with normal EF this admit (valve disease as below). Patient is at
elevated risk for this necessary procedure. Continue ASA, metoprolol, Imdur. Please monitor on telemetry post procedure.
CAD with hx stenting:
-stable without CP
-most recent ischemic evaluation as below
-continue ASA, metoprolol, and Isosorbide
-statin intolerant. Declined PCSK9I as OP per Dr. Cheng's noted. Continue Zetia.
HTN:
-continue meds and monitor
Tobacco abuse:
-told me he quit 2 weeks ago, which I encouraged
CKDIV:
-nephro on the case
Data:
-cardiac cath 2017: LAD: Tandem 40% and 30% mid LAD and 50% mid to distal LAD stenoses. The moderate sized second diagonal branch has 60% ostial and 80% mid stenosis. Circumflex: Widely patent proximal circumflex stent with 40% distal circumflex
proximal to the first LPL. There is one moderate and two small LPL branches. RCA: There is a long stented segment (full metal jacket) from the proximal vessel to the distal RCA. There is occlusion of the mid to distal RCA at the crux. A small PDA
fills via left coronary collaterals.
-Echo 07/09/24: Normal biventricular size and systolic function without regional wall motion abnormality. LVEF 70-75%. Mild to moderate functional mitral stenosis (mean gradient 4 mmHg, MVA by PHT 1.3 cm2). Mild to moderate aortic stenosis (peak/mean
40/70 mmHg, PREET 1.2 cm2). Mild tricuspid regurgitation. PASP 37 mmHg.
-Abd CT:-RIGHT LOWER EXTREMITY: Heavily calcified plaque near the origin of the right external iliac artery, associated with high-grade greater than 75% stenosis. Greater than 75% stenosis at the origin of the right internal iliac artery. Calcified
common femoral plaque, associated with approximately 75% stenosis. Multifocal high-grade stenoses throughout the right SFA. Areas of focal SFA occlusion are not excluded due to heavily calcified plaque. Multifocal 50-75% stenoses within the right
popliteal artery. Right anterior tibial artery is occluded. Posterior tibial and peroneal arteries are patent to the level of ankle.
2. LEFT LOWER EXTREMITY. Approximately 50% stenosis within the left common iliac artery. Multifocal 50-75% stenoses within the left external iliac and common femoral arteries. Left SFA is occluded at its origin and along its length, with
reconstitution of the popliteal artery. Multifocal 50-75% stenoses of the left popliteal artery. Left anterior tibial artery is occluded near its origin. Posterior tibial and peroneal arteries are patent.
3. Ulcerated plaque throughout the abdominal aorta. Mild stenosis near the origin of the celiac axis, estimated 50-75%. SMA and SARAH are patent.
4. Severe coronary arterial calcification. Please correlate with symptoms of and risk factors for coronary artery disease, with further workup as clinically appropriate.
Data Reviewed
-
EKG: Tracing Personally Visualized and interpreted (SB 58 BPM, no significant/acute change from previous on my review)
CT Scan: Report Reviewed by me (CT scan as noted)
Medical Tests (Nuc Med, Echo etc): Report Reviewed by me (echo as noted)
Labs: Labs Reviewed by me
[2024-07-10] MEDS: NOVOLOG FLEXPEN-LOW RESISTANCE 1 UNITS SC (09:52)
[2024-07-10] MEDS: IMDUR (EXTENDED RELEASE) 30 MG PO (09:52)
--- NOTE | 2024-07-10 10:08 | CM ---
Patient seen at bedside
tt from [facility] - LOC change to inpatient
IMM explained & signed. In chart
[2024-07-10 11:24] LABS: Glucose - Point of Care 326 mg/dl (70-99)
[2024-07-10] MEDS: NOVOLOG FLEXPEN-LOW RESISTANCE 4 UNITS SC (11:54)
--- NOTE | 2024-07-10 12:10 | W.PN.NEPH.PH ---
Today's Communication / Plan
-
Bicarb prophylaxis
Assessment/Plan
-
Assessment
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
Peripheral arterial disease
Hypertension
Diabetes mellitus type 2
Tobacco use
Moderate , MR
Right leg pain
Plan
Angiogram tomorrow
Previous discussions with Dr. Amor about the potential for dialysis he is unsure whether or not he would accept dialysis in the long-term
Follow BMP bicarb IV fluids with contrast exposure ordered for tomorrow
-
-
Date of Service: July 10, 2024
CC / HPI / ROS
-
Chief Complaint:
PAD
History of Present Illness:
CKD stage IV with a PAD ischemic limb potential requiring vascular intervention
Review of Systems:.
No chest pain or shortness of breath
Labs
-
Labs:
WBC 8.8 10^3/uL (4.8-10.8) 07/09/24 05:06
RBC 3.31 10^6/uL (4.70-6.10) L 07/09/24 05:06
Hgb 10.2 g/dL (13.0-18.0) L 07/09/24 05:06
Hct 30.6 % (39.0-52.0) L 07/09/24 05:06
Plt Count 226 10^3/uL (130-400) 07/09/24 05:06
Sodium 140 mmol/L (135-145) 07/10/24 06:57
Potassium 4.2 mmol/L (3.5-5.1) 07/10/24 06:57
Chloride 105 mmol/L (98-107) 07/10/24 06:57
Carbon Dioxide 27 mmol/L (22-30) 07/10/24 06:57
BUN 41 mg/dl (9-20) H 07/10/24 06:57
Creatinine 2.1 mg/dL (0.7-1.3) H 07/10/24 06:57
eGFR 30.85 07/10/24 06:57
Glucose 155 mg/dl (70-99) H 07/10/24 06:57
Calcium 9.6 mg/dl (8.4-10.2) 07/10/24 06:57
Albumin 3.7 g/dl (3.5-5.0) 07/08/24 18:34
Physical Exam
-
Vital Signs:
Vital Signs
Temp Pulse Resp BP Pulse Ox
97.9 F 62 14 168/77 97
07/10/24 07:41 07/10/24 08:47 07/10/24 07:41 07/10/24 08:48 07/10/24 07:41
Respiratory:: Bilateral: CTA
Lung Excursion:: Normal
Abdomen:: Soft
Bowel Sounds:: Normal
Extremity Edema:: None: Bilateral:
--- NOTE | 2024-07-10 12:27 | W.PN.HOSP.TC ---
Today's Communication/Plan
-
Assessment / Plan
Assessment / Plan
NAD
Scleral Anicteric
MMM
No JVD
CTABL
RRR, S1/S2, II/ systolic murmur at RUSB
Soft, NT, ND, BS+
Warm, Dry
Left leg slightly cooler then right leg, unable to palpate pulses does has cap refill albeit slow at 5-6seconds
AAOx3
Calm
PAD complicated by left ischemia more chronic than acute
Plan for left lower extremity angiogram with intervention per vascular surgery plan for 07/11/2024
CKD stage IV
At this time reluctant about dialysis
Nephrology following very closely started on bicarb drip today in the night plan for endovascular repair/arteriogram tomorrow
Hypertension
Continue antihypertensive avoid nephrotoxic agents
Diabetes type 2
Accu-Chek sliding scale goal blood glucose 140-180 carb controlled diet
Moderate AAS/MR
Outpatient cardiology follow-up
BPH
Continue Flomax and finasteride
Anticipated Discharge: > 48 hours
Subjective/Interval History
-
Date of Service: July 10, 2024
Seen and examined. No new complaints. No acute overnight events.
Was making his bed with the help of the cardiology APC
Objective Data
-
Labs:
Laboratory Results
07/10/24
06:57
Sodium 140
Potassium 4.2
Chloride 105
Carbon Dioxide 27
BUN 41 H
Creatinine 2.1 H
Glucose 155 H
Calcium 9.6
Vital Signs:
Vital Signs
Temp Pulse Resp BP Pulse Ox
97.9 F 62 14 168/77 97
07/10/24 07:41 07/10/24 08:47 07/10/24 07:41 07/10/24 08:48 07/10/24 07:41
I&O
07/09/24 07/10/24 07/11/24
06:59 06:59 06:59
Intake Total 250 / 250
Output Total 425 / 425 950 / 950
Balance -425 / -425 -700 / -700
--- NOTE | 2024-07-10 14:12 | PTCARENOTE ---
patient confused to time and place and forgetful, able to be redirected from nursing station back to room. concerned though for patient to be potential to wonder. gait steady, tolerating diet, vss, will continue to monitor.
--- NOTE | 2024-07-10 14:47 | RR ---
Addendum entered by Hanna Mckeon RN 07/10/24 17:19:
PCT called me into room and verbalized that patient not making sense and 'mumbling'. patient disoriented x3, forgetful, mumbling?facial weakness, unable to answer basic questions appropriately. prior to event, patient was independent in hallway
frequently, aaox1, confused to time and place and forgetful.
A Rapid Response was called on this patient, please see Rapid Response form.
Original Note:
PCT called me into room and verbalized that patient not making sense and 'mumbling'. patient disoriented x3, forgetful, mumbling?facial weakness/facial droop, unable to answer basic questions appropriately. prior to event, patient was independent
in hallway frequently, aaox1, confused to time and place and forgetful.
A Rapid Response was called on this patient, please see Rapid Response form.
[2024-07-10 14:51] LABS: Glucose - Point of Care 97 mg/dl (70-99)
--- NOTE | 2024-07-10 15:01 | CON.NEURO ---
Consultation
Order
Date of Consultation: 07/10/24
Reason for Consult: Stroke alert
Called in at 14:47
Neurology Consultation Note.
HPI: This is an 84-year-old man who presented to [facility] on July 08, 2024 with leg pain.
Stroke alert was activated for encephalopathy and 'questionable facial weakness '. According to patient's nurse the patient has been confused over the course of the day. Initially, he was able to walk to the nurse's station and provide basic
information such as his name and date of , albeit with some forgetfulness. He was noted to be mumbling incoherently and unable to provide even basic personal information. He has been observed to be confused about time and place throughout the
day.
According to patient's daughter prior to hospitalization on July 08, Mr. Anaya was reportedly functioning well. However, since admission, he has exhibited significant confusion. Family members describe him as talking about dying, being hungry,
and needing to get dressed to eat. This morning, the patient was confused about his location, believing he had been taken to [place] for a heart ultrasound when he had not left the hospital.
There has been a decline in the patient's ability to manage his medications and finances. While he was previously handling his medications independently, his daughter notes that he 'gave up' after his 's in 2019 and started eating whatever
he wanted. The family recently discovered that the patient has accrued significant debt.
ER VS: 178/68-181/50, afebrile
EKG: Normal sinus rhythm
PDMP:Tramadol Hcl 50 Mg 14 tabs filled in on 07/06/2024.
Labs: Hb 10.2, Cr 2.1, gluc 155, Hb A1c 10.3.
CT head wo contrast�mild atrophy, no acute infarct
PMH:TIA(2020), ASCVD, PAD, HTN, DLP, DM, CKD, hypothyroidism, nephrolithiasis, anemia, BPH, vitamin D deficiency
PSH: BL carotid stent, bilateral inguinal h herniorrhaphy, left SFA stent, PTCA
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
FH: No family history of dementia
All: HMG CoA reductase inhibitors
ROS: Limited due to encephalopathy
General: Well developed. In no acute distress.
Cardio: Regular rate and rhythm without murmur. Extremities are without cyanosis or edema.
Neuro:
Mental Status: Alert, oriented to name. Follows simple requests intermittently. Impaired attention and comprehension. Nonfluent.
Cranial Nerves: Pupils are equally round and reactive to light. Precentral EOMs full. Blinks to threat bilaterally. No ptosis. No nystagmus. Face symmetric. Preserved hearing no dysarthria.
Motor: No PT or leg drift
Reflexes: Grasp reflex�positive
Sensory: Limited due to poor attention
Coordination: No clear dysmetria
Gait: deferred
Assessment and Plan:
I. Subacute encephalopathy. Not a candidate for IV TNK due to timing of the symptom onset and lack of stroke syndrome
II. PAD, h/o BL ICA stents
III. Uncontrolled DM
-Continue Telemetry monitoring
-Start DAPT if no contraindication from vascular surgery perspective
-Brain MRI without lynette
-Carotid Doppler ultrasound
-Please check vitamin B12, TFTs
-Please document recent vital signs
-The case was discussed with patient's daughter
-DVT prophylaxis.
I personally reviewed all radiology and labs along with past medical records pertinent to current medical problems. Total time spent in patient care is 60 minutes.
Thank you for allowing us to participate in the care of this patient. We will continue to follow. Please do not hesitate to contact us with any questions or concerns.
Subjective/Objective
Subjective Data
Date of Service: July 10, 2024
Objective Data
Vital Signs
Temp Pulse Resp BP Pulse Ox
36.6 C 62 14 168/77 97
07/10/24 07:41 07/10/24 08:47 07/10/24 07:41 07/10/24 08:48 07/10/24 07:41
Lab Results
07/09/24 05:06
07/10/24 06:57
APTT 29.1 Sec (23.4-35.0) 07/08/24 18:34
Sodium 140 mmol/L (135-145) 07/10/24 06:57
Potassium 4.2 mmol/L (3.5-5.1) 07/10/24 06:57
BUN 41 mg/dl (9-20) H 07/10/24 06:57
Glucose 155 mg/dl (70-99) H 07/10/24 06:57
Calcium 9.6 mg/dl (8.4-10.2) 07/10/24 06:57
Patient Allergies
[id number] Reductase Inhibitor [Statins: Hmg-Coa Reductase Inhibito] Allergy (Verified 07/06/24 02:12)
leg pain, Myalgias
Medications
-
Active Medications
Generic Name Dose Route Start Last Admin
Trade Name Freq PRN Reason Stop Dose Admin
Acetaminophen 650 mg 07/09/24 03:08 07/09/24 09:06
Acetaminophen 325 Mg Tablet PO 08/06/24 03:07 650 mg
Q4HPRN PRN Administration
Mild Pain / Temp > 101
Amlodipine Besylate 10 mg 07/09/24 08:00 07/10/24 08:48
Amlodipine 10 Mg Tablet PO 08/06/24 07:59 10 mg
DAILY BURT Administration
Aspirin 81 mg 07/09/24 08:00 07/10/24 08:48
Aspirin 81 Mg Chewable Tablet PO 08/06/24 07:59 81 mg
DAILY BURT Administration
Cholecalciferol 25 mcg 07/09/24 08:00 07/10/24 08:47
Cholecalciferol (Vitamin D3) 25 Mcg Tablet (1,000 Units) PO 08/06/24 07:59 25 mcg
DAILY BURT Administration
Dextrose 12.5 grams 07/09/24 03:08
Dextrose 50% (0.5 Grams/Ml) 50 Ml Syringe IV 08/06/24 03:07
[id number] PRN
hypoglycemia
Protocol
Finasteride 5 mg 07/09/24 08:00 07/10/24 08:48
Finasteride 5 Mg Tablet PO 08/06/24 07:59 5 mg
DAILY BURT Administration
Glucagon 1 mg 07/09/24 03:08
Glucagon 1 Mg Vial IM 08/06/24 03:07
PRN PRN
hypoglycemia
Protocol
Heparin Sodium 5,000 units 07/09/24 08:00 07/10/24 08:48
Heparin 5,000 Units/Ml 1 Ml Vial SC 08/06/24 07:59 Not Given
Q12 BURT
Sodium Chloride 1,000 mls @ 80 mls/hr 07/08/24 23:45 07/09/24 00:06
Nss IV 1,000 mls
[id number] BURT Administration
Insulin Glargine 16 units/ 0.16 mls @ 0 mls/hr 07/09/24 22:00 07/09/24 22:10
Device SC 08/06/24 21:59 0.16 mls
HS BURT Administration
As Directed
Sodium Bicarbonate 150 meq/ 1,150 mls @ 0 mls/hr 07/11/24 08:00
Sterile Water IV 07/11/24 23:59
PER PROTOCOL BURT
Protocol
Per Protocol
Insulin Aspart 0 units 07/09/24 07:30 07/10/24 11:54
Insulin Aspart Low Resistance 300 Units/3 Ml Pen.Injctr SC 08/06/24 07:29 4 units
AC BURT Administration
Protocol
Isosorbide Mononitrate 30 mg 07/09/24 08:00 07/10/24 09:52
Isosorbide Mononitrate 30 Mg Extended Release Tablet PO 08/06/24 07:59 30 mg
DAILY BURT Administration
Metoprolol Tartrate 50 mg 07/09/24 08:00 07/10/24 08:47
Metoprolol 50 Mg Regular Release Tablet PO 08/06/24 07:59 50 mg
BID BURT Administration
Ondansetron HCl 4 mg 07/09/24 09:15 07/09/24 09:34
Ondansetron 4 Mg/2 Ml Vial IV 08/06/24 09:14 4 mg
Q6HPRN PRN Administration
NAUSEA/VOMITING
Sodium Bicarbonate 1,300 mg 07/09/24 08:00 07/10/24 08:47
Sodium Bicarbonate 650 Mg Tablet PO 08/06/24 07:59 1,300 mg
BID BURT Administration
Sodium Chloride 0 flush 07/09/24 04:00
Sodium Chloride 0.9% (Flush) Syringe IV 08/06/24 03:59
PER PROTOCOL BURT
Tamsulosin HCl 0.4 mg 07/09/24 08:00 07/10/24 08:48
Tamsulosin 0.4 Mg Capsule PO 08/06/24 07:59 0.4 mg
DAILY BURT Administration
Home Medications
�Medication �Instructions �Recorded
ezetimibe 10 mg tablet 10 mg PO DAILY High cholesterol 11/24/16
nitroglycerin 0.4 mg sublingual 0.4 mg sublingual [id number] PRN 11/25/16
tablet chest pain ##25
amlodipine 10 mg tablet 10 mg PO QPM Blood pressure 11/13/20
cholecalciferol (vitamin D3) 25 1,000 units PO DAILY Supplement 11/13/20
mcg (1,000 unit) tablet
isosorbide mononitrate 30 mg 30 mg PO DAILY Blood pressure 11/13/20
tablet,extended release 24 hr
metoprolol tartrate 25 mg tablet 50 mg PO BID Blood pressure 11/13/20
acetaminophen 325 mg tablet 650 mg PO Q6HPRN PRN mild pain 07/09/24
(Tylenol)
aspirin 81 mg chewable tablet 81 mg PO DAILY Blood Clot 07/09/24
Prevention/Tx
finasteride 5 mg tablet 5 mg PO QPM BPH 07/09/24
insulin glargine 100 unit/mL (3 16 unit SC HS Diabetes 07/09/24
mL) subcutaneous pen (Lantus
Solostar U-100 Insulin)
nateglinide 120 mg tablet 120 mg PO AC Diabetes 07/09/24
silodosin 8 mg capsule 8 mg PO QPM BPH 07/09/24
sodium bicarbonate 650 mg tablet 1,300 mg PO BID ALKALINIZING AGENT 07/09/24
[2024-07-10 15:43] VITALS: BP 118/63
--- NOTE | 2024-07-10 15:44 | PTCARENOTE ---
Addendum entered by Hanna Mckeon RN 07/10/24 18:33:
patient aaox1, confused to time and place and forgetful, able to tell me his name and ; however, impulsive, requesting 'a screwdriver or Scotch'. per his Daughter, he has does not drink alcohol. bed alarm in place. Dr. Mckeon and Dr. Garcia made
aware. no new orders obtained, will continue to monitor.
Original Note:
patient aaox1, confused to time and place and forgetful, able to tell me his name and ; however, impulsive, requesting 'a screwdriver or Scotch'. per his Daughter, he has does not drink alcohol. Dr. Mckeon and Dr. Garcia made aware. no new
orders obtained, will continue to monitor.
[2024-07-10 16:49] LABS: Glucose - Point of Care 133 mg/dl (70-99)
[2024-07-10] MEDS: NOVOLOG FLEXPEN-LOW RESISTANCE SC (16:52)
--- NOTE | 2024-07-10 19:45 | PTCARENOTE ---
patient current NIH score improved from initially at 5 during RR to 1 currently. bed alarm in place, vss, will continue to monitor.
[2024-07-10 19:50] VITALS: BP 190/70
[2024-07-10 21:39] LABS: Glucose - Point of Care 218 mg/dl (70-99)
[2024-07-10] MEDS: HEPARIN 5000 UNITS SC (22:01)
[2024-07-10] MEDS: MELATONIN 5 MG PO (22:02)
[2024-07-10] MEDS: LANTUS 0.16 UNITS SC (22:04)
[2024-07-10 23:10] VITALS: BP 176/64
[2024-07-11 03:55] VITALS: BP 176/64
[2024-07-11 06:00] VITALS: BMI 23.0
[2024-07-11 06:58] LABS: Hematocrit 28.7 % (39.0-52.0); Hemoglobin 9.7 g/dL (13.0-18.0); Mean Corp Hgb Conc. 33.8 g/dL (33.0-37.0); Mean Corpuscular Hgb 30.4 pg (27.0-31.0); Mean Platelet Volume 10.7 fL (7.4-10.4); Platelet Count 211 10^3/uL (130-400); Red Blood Cell Count 3.19 10^6/uL (4.70-6.10); Red Cell Dist. Width 15.1 % (11.5-14.5)
[2024-07-11 07:16] LABS: Blood Urea Nitrogen 39 mg/dl (9-20); Calcium 9.7 mg/dl (8.4-10.2); Carbon Dioxide 25 mmol/L (22-30); Chloride 106 mmol/L (98-107); Estimated Creatinine Clearance 25 ml/min; Glucose 128 mg/dl (70-99); Potassium 3.8 mmol/L (3.5-5.1); Sodium 142 mmol/L (135-145); eGFR 30.85
[2024-07-11 07:36] VITALS: BP 184/63
[2024-07-11 07:58] LABS: Glucose - Point of Care 149 mg/dl (70-99)
[2024-07-11] MEDS: HEPARIN 5000 UNITS SC ×2 (08:28→21:35)
[2024-07-11] MEDS: NOVOLOG FLEXPEN-LOW RESISTANCE SC ×2 (08:28→11:48)
[2024-07-11] MEDS: NORVASC 10 MG PO (08:29)
[2024-07-11] MEDS: IMDUR (EXTENDED RELEASE) 30 MG PO (08:29)
[2024-07-11] MEDS: LOW STRENGTH ASPIRIN 81 MG PO (08:29)
[2024-07-11] MEDS: FLOMAX 0.4 MG PO (08:29)
[2024-07-11] MEDS: LOPRESSOR 50 MG PO ×2 (08:29→21:29)
[2024-07-11] MEDS: VITAMIN D3 (cholecalciferol) 25 MCG PO (08:30)
[2024-07-11] MEDS: PROSCAR 5 MG PO (08:30)
[2024-07-11] MEDS: SODIUM BICARBONATE 1300 MG PO ×2 (08:30→21:35)
--- NOTE | 2024-07-11 09:57 | W.PN.UPDATE ---
Update Note
Progress Note Update
Chart reviewed, patient is currently confused and stroke alert was initiated yesterday. Given pending brain MRI to rule out ischemic event, and worsening acute confusion we will cancel OR today and postpone until patient's neuro status has
improved. Informed hospitalist via [place] text. Spoke to daughter Neisha and updated on plan, we can proceed with angiogram likely early next week if he remains inpatient over the weekend or can coordinate as an outpatient again early next week if
deemed stable for discharge. Plan reviewed with attending Dr. Chase Fay M.D.
--- NOTE | 2024-07-11 10:20 | CM ---
Patient seen at bedside with sons
stroke alert yesterday
OR cancelled-angiogram
PLAN: TBD, CM to continue to follow for needs
--- NOTE | 2024-07-11 10:29 | W.PN.NEURO.1 ---
Today's Communication / Plan
-
.
Subjective/Objective
Subjective Data
Date of Service: July 11, 2024
Neurology follow-up note.
24-hour events: hypertensive up to 190/70, afebrile.
Mr. Anaya reports no complaints
Brain MRI is pending
CT head wo contrast�mild atrophy, no acute infarct
PMH:TIA(2020), ASCVD, PAD, HTN, DLP, DM, CKD, hypothyroidism, nephrolithiasis, anemia, BPH, vitamin D deficiency
PSH: BL carotid stent, bilateral inguinal h herniorrhaphy, left SFA stent, PTCA
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
FH: No family history of dementia
All: HMG CoA reductase inhibitors
ROS: Positive for right foot pain
General: Well developed. In no acute distress.
Cardio: Regular rate and rhythm without murmur. Extremities are without cyanosis or edema.
Neuro:
Mental Status: Alert, oriented to name, time, location. Follows requests consistently. No aphasia or hemineglect.
Cranial Nerves: Pupils are equally round and reactive to light. Show felt intact blinks to threat bilaterally. No ptosis. No nystagmus. Face symmetric. No dysarthria.
Motor: No PT or leg drift
Reflexes: Grasp reflex�positive
Sensory: Reduced with patient at the right medical
Coordination: No dysmetria
Gait: deferred
Assessment and Plan:
I. Fluctuating encephalopathy. Likely etiology�vascular, metabolic, ?neurodegenerative
II. PAD, h/o BL ICA stenosise, s/p TCAR.
III. Uncontrolled DM, HTN
-Continue Telemetry monitoring
-Start DAPT if no contraindication from vascular surgery perspective
-Brain MRI without lynette
-Carotid Doppler ultrasound
-Please check vitamin B12, vit B1, TFTs, SPEP/IF
-DVT prophylaxis.
I personally reviewed all radiology and labs along with past medical records pertinent to current medical problems. Total time spent in patient care is 35 minutes.
Thank you for allowing us to participate in the care of this patient. We will continue to follow. Please do not hesitate to contact us with any questions or concerns
Objective Data
Vital Signs
Temp Pulse Resp BP Pulse Ox
36.6 C 67 16 184/63 96
07/11/24 07:36 07/11/24 07:36 07/11/24 07:36 07/11/24 07:36 07/11/24 07:36
Lab Results
07/11/24 06:44
07/11/24 06:44
APTT 29.1 Sec (23.4-35.0) 07/08/24 18:34
Sodium 142 mmol/L (135-145) 07/11/24 06:44
Potassium 3.8 mmol/L (3.5-5.1) 07/11/24 06:44
BUN 39 mg/dl (9-20) H 07/11/24 06:44
Glucose 128 mg/dl (70-99) H 07/11/24 06:44
Calcium 9.7 mg/dl (8.4-10.2) 07/11/24 06:44
Patient Allergies
Hjrjaxv-[id number]-[id number] Reductase Inhibitor [Statins: Hmg-Coa Reductase Inhibito] Allergy (Verified 07/06/24 02:12)
leg pain, Myalgias
Vital Signs and Labs
-
Vital Signs and Labs:
Vital Signs
Temp Pulse Resp BP Pulse Ox
36.6 C 67 16 184/63 96
07/11/24 07:36 07/11/24 07:36 07/11/24 07:36 07/11/24 07:36 07/11/24 07:36
Lab Results
07/11/24 06:44
07/11/24 06:44
APTT 29.1 Sec (23.4-35.0) 07/08/24 18:34
Sodium 142 mmol/L (135-145) 07/11/24 06:44
Potassium 3.8 mmol/L (3.5-5.1) 07/11/24 06:44
BUN 39 mg/dl (9-20) H 07/11/24 06:44
Glucose 128 mg/dl (70-99) H 07/11/24 06:44
Calcium 9.7 mg/dl (8.4-10.2) 07/11/24 06:44
Medications
-
Medications:
Generic Name Dose Route Start Last Admin
Trade Name Freq PRN Reason Stop Dose Admin
Acetaminophen 650 mg 07/09/24 03:08 07/09/24 09:06
Acetaminophen 325 Mg Tablet PO 08/06/24 03:07 650 mg
Q4HPRN PRN Administration
Mild Pain / Temp > 101
Amlodipine Besylate 10 mg 07/09/24 08:00 07/11/24 08:29
Amlodipine 10 Mg Tablet PO 08/06/24 07:59 10 mg
DAILY BURT Administration
Aspirin 81 mg 07/09/24 08:00 07/11/24 08:29
Aspirin 81 Mg Chewable Tablet PO 08/06/24 07:59 81 mg
DAILY BURT Administration
Cholecalciferol 25 mcg 07/09/24 08:00 07/11/24 08:30
Cholecalciferol (Vitamin D3) 25 Mcg Tablet (1,000 Units) PO 08/06/24 07:59 25 mcg
DAILY BURT Administration
Dextrose 12.5 grams 07/09/24 03:08
Dextrose 50% (0.5 Grams/Ml) 50 Ml Syringe IV 08/06/24 03:07
[id number] PRN
hypoglycemia
Protocol
Finasteride 5 mg 07/09/24 08:00 07/11/24 08:30
Finasteride 5 Mg Tablet PO 08/06/24 07:59 5 mg
DAILY BURT Administration
Glucagon 1 mg 07/09/24 03:08
Glucagon 1 Mg Vial IM 08/06/24 03:07
PRN PRN
hypoglycemia
Protocol
Heparin Sodium 5,000 units 07/09/24 08:00 07/11/24 08:28
Heparin 5,000 Units/Ml 1 Ml Vial SC 08/06/24 07:59 5,000 units
Q12 BURT Administration
Sodium Chloride 1,000 mls @ 80 mls/hr 07/08/24 23:45 07/09/24 00:06
Nss IV 1,000 mls
[id number] BURT Administration
Insulin Glargine 16 units/ 0.16 mls @ 0 mls/hr 07/09/24 22:00 07/10/24 22:04
Device SC 08/06/24 21:59 0.16 mls
HS BURT Administration
As Directed
Sodium Bicarbonate 150 meq/ 1,150 mls @ 0 mls/hr 07/11/24 08:00
Sterile Water IV 07/11/24 23:59
PER PROTOCOL BURT
Protocol
Per Protocol
Insulin Aspart 0 units 07/09/24 07:30 07/11/24 08:28
Insulin Aspart Low Resistance 300 Units/3 Ml Pen.Injctr SC 08/06/24 07:29 Not Given
AC BURT
Protocol
Isosorbide Mononitrate 30 mg 07/09/24 08:00 07/11/24 08:29
Isosorbide Mononitrate 30 Mg Extended Release Tablet PO 08/06/24 07:59 30 mg
DAILY BURT Administration
Metoprolol Tartrate 50 mg 07/09/24 08:00 07/11/24 08:29
Metoprolol 50 Mg Regular Release Tablet PO 08/06/24 07:59 50 mg
BID BURT Administration
Ondansetron HCl 4 mg 07/09/24 09:15 07/09/24 09:34
Ondansetron 4 Mg/2 Ml Vial IV 08/06/24 09:14 4 mg
Q6HPRN PRN Administration
NAUSEA/VOMITING
Sodium Bicarbonate 1,300 mg 07/09/24 08:00 07/11/24 08:30
Sodium Bicarbonate 650 Mg Tablet PO 08/06/24 07:59 1,300 mg
BID BURT Administration
Sodium Chloride 0 flush 07/09/24 04:00
Sodium Chloride 0.9% (Flush) Syringe IV 08/06/24 03:59
PER PROTOCOL BURT
Tamsulosin HCl 0.4 mg 07/09/24 08:00 07/11/24 08:29
Tamsulosin 0.4 Mg Capsule PO 08/06/24 07:59 0.4 mg
DAILY BURT Administration
Home Medications
-
Home Medications
ezetimibe 10 mg tablet 10 mg PO DAILY High cholesterol 11/24/16
nitroglycerin 0.4 mg sublingual tablet 0.4 mg sublingual [id number] PRN chest pain ##25 11/25/16
amlodipine 10 mg tablet 10 mg PO QPM Blood pressure 11/13/20
cholecalciferol (vitamin D3) 25 mcg (1,000 unit) tablet 1,000 units PO DAILY Supplement 11/13/20
isosorbide mononitrate 30 mg tablet,extended release 24 hr 30 mg PO DAILY Blood pressure 11/13/20
metoprolol tartrate 25 mg tablet 50 mg PO BID Blood pressure 11/13/20
acetaminophen 325 mg tablet (Tylenol) 650 mg PO Q6HPRN PRN mild pain 07/09/24
aspirin 81 mg chewable tablet 81 mg PO DAILY Blood Clot Prevention/Tx 07/09/24
finasteride 5 mg tablet 5 mg PO QPM BPH 07/09/24
insulin glargine 100 unit/mL (3 mL) subcutaneous pen (Lantus Solostar U-100 Insulin) 16 unit SC HS Diabetes 07/09/24
nateglinide 120 mg tablet 120 mg PO AC Diabetes 07/09/24
silodosin 8 mg capsule 8 mg PO QPM BPH 07/09/24
sodium bicarbonate 650 mg tablet 1,300 mg PO BID ALKALINIZING AGENT 07/09/24
[2024-07-11 11:34] LABS: Glucose - Point of Care 126 mg/dl (70-99)
--- NOTE | 2024-07-11 11:51 | W.PN.HOSP.TC ---
Today's Communication/Plan
-
Assessment / Plan
Assessment / Plan
NAD
Scleral Anicteric
MMM
No JVD
CTABL
RRR, S1/S2, II/ systolic murmur at RUSB
Soft, NT, ND, BS+
Warm, Dry
Left leg slightly cooler then right leg, unable to palpate pulses does has cap refill albeit slow at 5-6seconds
AAOx3
Calm
PAD complicated by left ischemia more chronic than acute
Plan for left lower extremity angiogram with intervention per vascular surgery plan for 07/12/2024
-- Left lower extremity angiogram held off due to MRI needs
Altered mental status intermittent likely secondary to hospital-acquired delirium
Continue frequent reorientation
For completeness obtain a brain MRI to rule out CVA per neurology
CKD stage IV
At this time reluctant about dialysis
Nephrology following very closely started on bicarb drip today in the night plan for endovascular repair/arteriogram tomorrow
Hypertension
Continue antihypertensive avoid nephrotoxic agents
Diabetes type 2
Accu-Chek sliding scale goal blood glucose 140-180 carb controlled diet
Moderate AAS/MR
Outpatient cardiology follow-up
BPH
Continue Flomax and finasteride
Anticipated Discharge: > 48 hours
Subjective/Interval History
-
Date of Service: July 11, 2024
Seen and examined. Son at bedside. Neurology then saw him during my examination.
He is able to tell me where he is who he has month and year.
Without evidence of focal neurological deficits on my exam.
I discussed this at bedside with neurology in front of his son suspect likely hospital-acquired delirium rather than the acute CVA however for completeness obtain MRI.
Objective Data
-
Labs:
Laboratory Results
07/11/24
06:44
WBC 8.0
Hgb 9.7 L
Hct 28.7 L
Plt Count 211
Sodium 142
Potassium 3.8
Chloride 106
Carbon Dioxide 25
BUN 39 H
Creatinine 2.1 H
Glucose 128 H
Calcium 9.7
Vital Signs:
Vital Signs
Temp Pulse Resp BP Pulse Ox
97.8 F 67 16 184/63 96
07/11/24 07:36 07/11/24 07:36 07/11/24 07:36 07/11/24 07:36 07/11/24 07:36
I&O
07/10/24 07/11/24 07/12/24
06:59 06:59 06:59
Intake Total 250 / 250 1200 / 1200
Output Total 950 / 950 1550 / 1550
Balance -700 / -700 -350 / -350
--- NOTE | 2024-07-11 11:54 | W.PN.NEPH.PH ---
Today's Communication / Plan
-
Bicarbonate prophylaxis pending angio tomorrow
Assessment/Plan
-
Assessment
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
Peripheral arterial disease
Hypertension
Diabetes mellitus type 2
Tobacco use
Moderate , MR
Right leg pain
Plan
Angiogram tomorrow= put on hold today for altered mental status
Previous discussions with Dr. Amor about the potential for dialysis he is unsure whether or not he would accept dialysis in the long-term
Creatinine stable 2.1
Discussed with his son who is at the bedside
Bicarb prophylaxis tomorrow if we proceed with the angio
CT scan noted pending MRI neurology consulted noted
-
-
Date of Service: July 11, 2024
CC / HPI / ROS
-
Chief Complaint:
PAD
History of Present Illness:
CKD stage IV with a PAD ischemic limb potential requiring vascular intervention
Review of Systems:.
No chest pain or shortness of breath
Labs
-
Labs:
WBC 8.0 10^3/uL (4.8-10.8) 07/11/24 06:44
RBC 3.19 10^6/uL (4.70-6.10) L 07/11/24 06:44
Hgb 9.7 g/dL (13.0-18.0) L 07/11/24 06:44
Hct 28.7 % (39.0-52.0) L 07/11/24 06:44
Plt Count 211 10^3/uL (130-400) 07/11/24 06:44
Sodium 142 mmol/L (135-145) 07/11/24 06:44
Potassium 3.8 mmol/L (3.5-5.1) 07/11/24 06:44
Chloride 106 mmol/L (98-107) 07/11/24 06:44
Carbon Dioxide 25 mmol/L (22-30) 07/11/24 06:44
BUN 39 mg/dl (9-20) H 07/11/24 06:44
Creatinine 2.1 mg/dL (0.7-1.3) H 07/11/24 06:44
eGFR 30.85 07/11/24 06:44
Glucose 128 mg/dl (70-99) H 07/11/24 06:44
Calcium 9.7 mg/dl (8.4-10.2) 07/11/24 06:44
Albumin 3.7 g/dl (3.5-5.0) 07/08/24 18:34
Physical Exam
-
Vital Signs:
Vital Signs
Temp Pulse Resp BP Pulse Ox
97.8 F 67 16 184/63 96
07/11/24 07:36 07/11/24 07:36 07/11/24 07:36 07/11/24 07:36 07/11/24 07:36
Respiratory:: Bilateral: CTA
Lung Excursion:: Normal
Abdomen:: Soft
Bowel Sounds:: Normal
Extremity Edema:: None: Bilateral:
[2024-07-11 13:16] LABS: Folate 17.3 ng/ml (2.76-20); Vitamin B12 780 pg/ml (239-931)
--- NOTE | 2024-07-11 14:08 | W.PN.UPDATE ---
Update Note
Progress Note Update
notified by nurse about urine retention 450ml recurrent . ordered indwelling Boudreaux cath
[2024-07-11 14:12] LABS: Urine Albumin 3+ (Neg - Trace); Urine Bilirubin Negative (Negative); Urine Character Clear (Clear); Urine Color Yellow; Urine Glucose Negative (Negative); Urine Ketone Negative (Negative); Urine Leukocyte Negative (Negative); Urine Nitrite Positive (Negative); Urine Occult Blood 4+ (Negative); Urine Urobilinogen Negative (Neg - 1+)
[2024-07-11 14:28] LABS: Urine Amorphous Seen; Urine Bacteria Many (Negative); Urine Red Blood Cell >100 /HPF (0-2); Urine Squamous Cell 0-2 /LPF (Few); Urine White Cell 0-2 /HPF (0-5)
[2024-07-11 15:27] VITALS: BP 175/71
[2024-07-11 16:34] LABS: Glucose - Point of Care 185 mg/dl (70-99)
[2024-07-11] MEDS: NOVOLOG FLEXPEN-LOW RESISTANCE 1 UNITS SC (17:58)
[2024-07-11 21:24] LABS: Glucose - Point of Care 208 mg/dl (70-99)
[2024-07-11] MEDS: LANTUS 0.16 UNITS SC (21:37)
--- NOTE | 2024-07-12 00:09 | PTCARENOTE ---
Pt tx to rm 425 via the bed. Report given to Sailaja MAYO. No s/s of distress assessed. Discussed move with pt's son via telephone.
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
[2024-07-12 07:35] VITALS: BP 145/55
[2024-07-12] MEDS: HEPARIN 5000 UNITS SC ×2 (08:52→20:24)
[2024-07-12] MEDS: NOVOLOG FLEXPEN-LOW RESISTANCE SC ×3 (08:52→17:45)
[2024-07-12] MEDS: LOW STRENGTH ASPIRIN 81 MG PO (08:53)
[2024-07-12] MEDS: LOPRESSOR 50 MG PO ×2 (08:53→20:24)
[2024-07-12 08:54] LABS: Glucose - Point of Care 69 mg/dl (70-99)
[2024-07-12] MEDS: SODIUM BICARBONATE 1300 MG PO ×2 (08:54→20:24)
[2024-07-12] MEDS: NORVASC 10 MG PO (08:54)
[2024-07-12] MEDS: PROSCAR 5 MG PO (08:54)
[2024-07-12] MEDS: VITAMIN D3 (cholecalciferol) 25 MCG PO (08:55)
[2024-07-12] MEDS: FLOMAX 0.4 MG PO (08:55)
[2024-07-12] MEDS: IMDUR (EXTENDED RELEASE) 30 MG PO (09:13)
[2024-07-12 09:20] LABS: Glucose - Point of Care 95 mg/dl (70-99)
--- NOTE | 2024-07-12 10:38 | PN.CDI ---
CDI
- -
CDI:
Physician Documentation Request
Admit Date: 07/10/24 08:25
Dear Doctor Jose,
Please review the following and provide your response in the progress notes.
Clinical Indicators:
- RN skin assessments indicate Stage 1 bilateral heel pressure injury
Physician documentation of the type and location of wounds is required for compliant documentation. Based on the above clinical findings and your assessment, please provide the following in your progress note:
1. Location of the ulcer/wound, including laterality.
2. Type (etiology) of ulcer/wound:
- Diabetic ulcer
- Arterial (ischemic) ulcer
- Venous stasis ulcer
- Pressure (decubitus) ulcer
- Other
Use of terms such as suspected, likely, concern for, or probable (associated with a specific diagnosis that is being evaluated, monitored, or treated as if it exists) are acceptable and can be coded in the inpatient setting, when documented at the
time of discharge.
Thank you,
Alaina Antony RN
CDI Specialist
Please use your independent medical judgment in providing your response.
*Source: National Pressure Ulcer Advisory Panel (NPUAP)
[2024-07-12 11:44] LABS: Glucose - Point of Care 88 mg/dl (70-99)
--- NOTE | 2024-07-12 12:47 | W.PN.NEPH.PH ---
Today's Communication / Plan
-
BMP in the morning
Maintain Boudreaux catheter
Assessment/Plan
-
Assessment
CKD 4 (2.0)
Peripheral arterial disease
Hypertension
Diabetes mellitus type 2
Tobacco use
Moderate , MR
Right leg pain
Plan
Angiogram = put on hold today for altered mental status/MRI no acute finding
Previous discussions with Dr. Amor about the potential for dialysis he is unsure whether or not he would accept dialysis in the long-term
Creatinine stable 2.1
Discussed with his son who is at the bedside
CT scan noted pending MRI neurology consulted noted
Patient remains with Boudreaux catheter for significant urine retention for 450+
-
-
Date of Service: July 12, 2024
CC / HPI / ROS
-
Chief Complaint:
PAD
History of Present Illness:
CKD stage IV with a PAD ischemic limb potential requiring vascular intervention
Review of Systems:.
No chest pain or shortness of breath
Labs
-
Labs:
WBC 8.0 10^3/uL (4.8-10.8) 07/11/24 06:44
RBC 3.19 10^6/uL (4.70-6.10) L 07/11/24 06:44
Hgb 9.7 g/dL (13.0-18.0) L 07/11/24 06:44
Hct 28.7 % (39.0-52.0) L 07/11/24 06:44
Plt Count 211 10^3/uL (130-400) 07/11/24 06:44
Sodium 142 mmol/L (135-145) 07/11/24 06:44
Potassium 3.8 mmol/L (3.5-5.1) 07/11/24 06:44
Chloride 106 mmol/L (98-107) 07/11/24 06:44
Carbon Dioxide 25 mmol/L (22-30) 07/11/24 06:44
BUN 39 mg/dl (9-20) H 07/11/24 06:44
Creatinine 2.1 mg/dL (0.7-1.3) H 07/11/24 06:44
eGFR 30.85 07/11/24 06:44
Glucose 128 mg/dl (70-99) H 07/11/24 06:44
Calcium 9.7 mg/dl (8.4-10.2) 07/11/24 06:44
Albumin 3.7 g/dl (3.5-5.0) 07/08/24 18:34
Physical Exam
-
Vital Signs:
Vital Signs
Temp Pulse Resp BP Pulse Ox
97.9 F 68 18 145/55 98
07/12/24 07:35 07/12/24 07:35 07/12/24 07:35 07/12/24 07:35 07/12/24 07:35
Respiratory:: Bilateral: CTA
Lung Excursion:: Normal
Abdomen:: Soft
Bowel Sounds:: Normal
Extremity Edema:: None: Bilateral:
Boudreaux Catheter: Yes
Other Findings::
Mental status remains altered but nonfocal
--- NOTE | 2024-07-12 15:58 | W.PN.HOSP.TC ---
Today's Communication/Plan
-
Assessment / Plan
Assessment / Plan
NAD
Scleral Anicteric
MMM
No JVD
CTABL
RRR, S1/S2, II/ systolic murmur at RUSB
Soft, NT, ND, BS+
Warm, Dry
Left leg slightly cooler then right leg, unable to palpate pulses does has cap refill albeit slow at 5-6seconds
AAOx3
Calm
PAD complicated by left ischemia more chronic than acute
Plan for left lower extremity angiogram with intervention per vascular surgery plan for 07/12/2024
-- Left lower extremity angiogram held off due to MRI needs
Altered mental status intermittent likely secondary to hospital-acquired delirium
Continue frequent reorientation
MRI without findings of acute abnormalities
CKD stage IV
At this time reluctant about dialysis
Nephrology following very closely started on bicarb drip today in the night plan for endovascular repair/arteriogram tomorrow
Hypertension
Continue antihypertensive avoid nephrotoxic agents
Diabetes type 2
Accu-Chek sliding scale goal blood glucose 140-180 carb controlled diet
Moderate AAS/MR
Outpatient cardiology follow-up
BPH
Continue Flomax and finasteride
Anticipated Discharge: 24 - 48 hours
Subjective/Interval History
-
Date of Service: July 12, 2024
seen and examined. no new complaints. no acute overnight events
Objective Data
-
Vital Signs:
Vital Signs
Temp Pulse Resp BP Pulse Ox
97.9 F 68 18 145/55 98
07/12/24 07:35 07/12/24 07:35 07/12/24 07:35 07/12/24 07:35 07/12/24 07:35
I&O
07/11/24 07/12/24 07/13/24
06:59 06:59 06:59
Intake Total 1200 / 1200 480 / 480
Output Total 1550 / 1550 1100 / 1100
Balance -350 / -350 -620 / -620
[2024-07-12 16:20] VITALS: BP 161/60
[2024-07-12 16:58] LABS: Glucose - Point of Care 86 mg/dl (70-99)
--- NOTE | 2024-07-12 18:20 | W.PN.NEURO.1 ---
Today's Communication / Plan
-
.
Subjective/Objective
Subjective Data
Date of Service: July 12, 2024
Neurology follow-up note.
Mr. Anaya reports no complaints.
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
B12�780, folate�normal.
CT head wo contrast�mild atrophy, no acute infarct.
UA�positive for nitrates, RBCs and bacteria.
PMH:TIA(2020), ASCVD, PAD, HTN, DLP, DM, CKD, hypothyroidism, nephrolithiasis, anemia, BPH, vitamin D deficiency
PSH: BL carotid stent, bilateral inguinal h herniorrhaphy, left SFA stent, PTCA
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
FH: No family history of dementia
All: HMG CoA reductase inhibitors
ROS: Positive for right foot pain
General: Well developed. In no acute distress.
Cardio: Regular rate and rhythm without murmur. Extremities are without cyanosis or edema.
Neuro:
Mental Status: Alert, oriented to name, time, location. Follows requests consistently. No aphasia or hemineglect.
Cranial Nerves: Pupils are equally round and reactive to light. Show felt intact blinks to threat bilaterally. No ptosis. No nystagmus. Face symmetric. No dysarthria.
Motor: No PT or leg drift
Reflexes: Grasp reflex�positive
Sensory: Reduced with patient at the right toe and ankle.
Coordination: No dysmetria
Gait: deferred
Assessment and Plan:
I. Chronic mixed encephalopathy. (Vascular, metabolic)
II. PAD, h/o BL ICA stenosis, s/p TCAR.
III. Uncontrolled DM, HTN
-Continue Telemetry monitoring
-Vascular surgery follow-up
-Please follow-up requested serologies
-DVT prophylaxis.
- Outpatient neurology follow-up
- Please recall neurology services any questions or concerns
I personally reviewed all radiology and labs along with past medical records pertinent to current medical problems. Total time spent in patient care is 35 minutes.
Thank you for allowing us to participate in the care of this patient. Please do not hesitate to contact us with any questions or concerns
Objective Data
Vital Signs
Temp Pulse Resp BP Pulse Ox
36.7 C 71 18 161/60 96
07/12/24 16:20 07/12/24 16:20 07/12/24 16:20 07/12/24 16:20 07/12/24 16:20
Lab Results
07/11/24 06:44
07/11/24 06:44
APTT 29.1 Sec (23.4-35.0) 07/08/24 18:34
Sodium 142 mmol/L (135-145) 07/11/24 06:44
Potassium 3.8 mmol/L (3.5-5.1) 07/11/24 06:44
BUN 39 mg/dl (9-20) H 07/11/24 06:44
Glucose 128 mg/dl (70-99) H 07/11/24 06:44
Calcium 9.7 mg/dl (8.4-10.2) 07/11/24 06:44
Vitamin B12 780 pg/ml (239-931) 07/11/24 06:44
Patient Allergies
[id number] Reductase Inhibitor [Statins: Hmg-Coa Reductase Inhibito] Allergy (Verified 07/06/24 02:12)
leg pain, Myalgias
Vital Signs and Labs
-
Vital Signs and Labs:
Vital Signs
Temp Pulse Resp BP Pulse Ox
36.7 C 71 18 161/60 96
07/12/24 16:20 07/12/24 16:20 07/12/24 16:20 07/12/24 16:20 07/12/24 16:20
Lab Results
07/11/24 06:44
07/11/24 06:44
APTT 29.1 Sec (23.4-35.0) 07/08/24 18:34
Sodium 142 mmol/L (135-145) 07/11/24 06:44
Potassium 3.8 mmol/L (3.5-5.1) 07/11/24 06:44
BUN 39 mg/dl (9-20) H 07/11/24 06:44
Glucose 128 mg/dl (70-99) H 07/11/24 06:44
Calcium 9.7 mg/dl (8.4-10.2) 07/11/24 06:44
Vitamin B12 780 pg/ml (239-931) 07/11/24 06:44
Medications
-
Medications:
Generic Name Dose Route Start Last Admin
Trade Name Freq PRN Reason Stop Dose Admin
Acetaminophen 650 mg 07/09/24 03:08 07/09/24 09:06
Acetaminophen 325 Mg Tablet PO 08/06/24 03:07 650 mg
Q4HPRN PRN Administration
Mild Pain / Temp > 101
Amlodipine Besylate 10 mg 07/09/24 08:00 07/12/24 08:54
Amlodipine 10 Mg Tablet PO 08/06/24 07:59 10 mg
DAILY BURT Administration
Aspirin 81 mg 07/09/24 08:00 07/12/24 08:53
Aspirin 81 Mg Chewable Tablet PO 08/06/24 07:59 81 mg
DAILY BURT Administration
Cholecalciferol 25 mcg 07/09/24 08:00 07/12/24 08:55
Cholecalciferol (Vitamin D3) 25 Mcg Tablet (1,000 Units) PO 08/06/24 07:59 25 mcg
DAILY BURT Administration
Dextrose 12.5 grams 07/09/24 03:08
Dextrose 50% (0.5 Grams/Ml) 50 Ml Syringe IV 08/06/24 03:07
[id number] PRN
hypoglycemia
Protocol
Finasteride 5 mg 07/09/24 08:00 07/12/24 08:54
Finasteride 5 Mg Tablet PO 08/06/24 07:59 5 mg
DAILY BURT Administration
Glucagon 1 mg 07/09/24 03:08
Glucagon 1 Mg Vial IM 08/06/24 03:07
PRN PRN
hypoglycemia
Protocol
Heparin Sodium 5,000 units 07/09/24 08:00 07/12/24 20:24
Heparin 5,000 Units/Ml 1 Ml Vial SC 08/06/24 07:59 5,000 units
Q12 BURT Administration
Sodium Chloride 1,000 mls @ 80 mls/hr 07/08/24 23:45 07/09/24 00:06
Nss IV 1,000 mls
.[id number] BURT Administration
Insulin Glargine 16 units/ 0.16 mls @ 0 mls/hr 07/09/24 22:00 07/11/24 21:37
Device SC 08/06/24 21:59 0.16 mls
HS BURT Administration
As Directed
Insulin Aspart 0 units 07/09/24 07:30 07/12/24 17:45
Insulin Aspart Low Resistance 300 Units/3 Ml Pen.Injctr SC 08/06/24 07:29 Not Given
AC BURT
Protocol
Isosorbide Mononitrate 30 mg 07/09/24 08:00 07/12/24 09:13
Isosorbide Mononitrate 30 Mg Extended Release Tablet PO 08/06/24 07:59 30 mg
DAILY BURT Administration
Metoprolol Tartrate 50 mg 07/09/24 08:00 07/12/24 20:24
Metoprolol 50 Mg Regular Release Tablet PO 08/06/24 07:59 50 mg
BID BURT Administration
Olanzapine 2.5 mg 07/12/24 22:00 07/12/24 20:24
Olanzapine 2.5 Mg Tablet PO 08/09/24 21:59 2.5 mg
HS BURT Administration
Ondansetron HCl 4 mg 07/09/24 09:15 07/09/24 09:34
Ondansetron 4 Mg/2 Ml Vial IV 08/06/24 09:14 4 mg
Q6HPRN PRN Administration
NAUSEA/VOMITING
Sodium Bicarbonate 1,300 mg 07/09/24 08:00 07/12/24 20:24
Sodium Bicarbonate 650 Mg Tablet PO 08/06/24 07:59 1,300 mg
BID BURT Administration
Sodium Chloride 0 flush 07/09/24 04:00
Sodium Chloride 0.9% (Flush) Syringe IV 08/06/24 03:59
PER PROTOCOL BURT
Tamsulosin HCl 0.4 mg 07/09/24 08:00 07/12/24 08:55
Tamsulosin 0.4 Mg Capsule PO 08/06/24 07:59 0.4 mg
DAILY BURT Administration
Home Medications
-
Home Medications
ezetimibe 10 mg tablet 10 mg PO DAILY High cholesterol 11/24/16
nitroglycerin 0.4 mg sublingual tablet 0.4 mg sublingual [id number] PRN chest pain ##25 11/25/16
amlodipine 10 mg tablet 10 mg PO QPM Blood pressure 11/13/20
cholecalciferol (vitamin D3) 25 mcg (1,000 unit) tablet 1,000 units PO DAILY Supplement 11/13/20
isosorbide mononitrate 30 mg tablet,extended release 24 hr 30 mg PO DAILY Blood pressure 11/13/20
metoprolol tartrate 25 mg tablet 50 mg PO BID Blood pressure 11/13/20
acetaminophen 325 mg tablet (Tylenol) 650 mg PO Q6HPRN PRN mild pain 07/09/24
aspirin 81 mg chewable tablet 81 mg PO DAILY Blood Clot Prevention/Tx 07/09/24
finasteride 5 mg tablet 5 mg PO QPM BPH 07/09/24
insulin glargine 100 unit/mL (3 mL) subcutaneous pen (Lantus Solostar U-100 Insulin) 16 unit SC HS Diabetes 07/09/24
nateglinide 120 mg tablet 120 mg PO AC Diabetes 07/09/24
silodosin 8 mg capsule 8 mg PO QPM BPH 07/09/24
sodium bicarbonate 650 mg tablet 1,300 mg PO BID ALKALINIZING AGENT 07/09/24
[2024-07-12] MEDS: ZYPREXA 2.5 MG PO (20:24)
[2024-07-12 21:24] LABS: Glucose - Point of Care 239 mg/dl (70-99)
[2024-07-12] MEDS: LANTUS 0.16 UNITS SC (22:16)
[2024-07-12 23:33] VITALS: BP 178/62
[2024-07-13 06:00] VITALS: BMI 21.6
[2024-07-13 07:00] VITALS: BP 153/41
[2024-07-13 07:43] LABS: Glucose - Point of Care 72 mg/dl (70-99)
[2024-07-13] MEDS: NOVOLOG FLEXPEN-LOW RESISTANCE SC (08:19)
[2024-07-13] MEDS: LOW STRENGTH ASPIRIN 81 MG PO (08:19)
[2024-07-13] MEDS: IMDUR (EXTENDED RELEASE) 30 MG PO (08:19)
[2024-07-13] MEDS: PROSCAR 5 MG PO (08:20)
[2024-07-13] MEDS: LOPRESSOR 50 MG PO ×2 (08:20→21:05)
[2024-07-13] MEDS: VITAMIN D3 (cholecalciferol) 25 MCG PO (08:20)
[2024-07-13] MEDS: FLOMAX 0.4 MG PO ×2 (08:20→21:02)
[2024-07-13] MEDS: NORVASC 10 MG PO (08:21)
[2024-07-13] MEDS: HEPARIN 5000 UNITS SC ×2 (08:22→21:03)
[2024-07-13] MEDS: SODIUM BICARBONATE 1300 MG PO ×2 (08:25→21:02)
--- NOTE | 2024-07-13 09:30 | W.PN.NEPH.PH ---
Today's Communication / Plan
-
follow BMP
Assessment/Plan
-
Assessment
CKD 4 (2.0)
Peripheral arterial disease
Hypertension
Diabetes mellitus type 2
Tobacco use
Moderate , MR
Right leg pain
Plan
follow BMP
mental status is improving
I believe he can proceed with agram on monday so long MS is stable and Cr stable
would need IVF again then
hypotonic IVF today
eventual voiding trial
increase flomax
d/w daughter and son
-
-
Date of Service: July 13, 2024
CC / HPI / ROS
-
Chief Complaint:
PAD
History of Present Illness:
CKD stage IV with a PAD ischemic limb potential requiring vascular intervention
CKD/Cr stable 2.1
BP high
hinton in place for retention
Review of Systems:.
constipated
No chest pain or shortness of breath
Labs
-
Labs:
WBC 8.0 10^3/uL (4.8-10.8) 07/11/24 06:44
RBC 3.19 10^6/uL (4.70-6.10) L 07/11/24 06:44
Hgb 9.7 g/dL (13.0-18.0) L 07/11/24 06:44
Hct 28.7 % (39.0-52.0) L 07/11/24 06:44
Plt Count 211 10^3/uL (130-400) 07/11/24 06:44
Sodium 142 mmol/L (135-145) 07/11/24 06:44
Potassium 3.8 mmol/L (3.5-5.1) 07/11/24 06:44
Chloride 106 mmol/L (98-107) 07/11/24 06:44
Carbon Dioxide 25 mmol/L (22-30) 07/11/24 06:44
BUN 39 mg/dl (9-20) H 07/11/24 06:44
Creatinine 2.1 mg/dL (0.7-1.3) H 07/11/24 06:44
eGFR 30.85 07/11/24 06:44
Glucose 128 mg/dl (70-99) H 07/11/24 06:44
Calcium 9.7 mg/dl (8.4-10.2) 07/11/24 06:44
Albumin 3.7 g/dl (3.5-5.0) 07/08/24 18:34
Physical Exam
-
Vital Signs:
Vital Signs
Temp Pulse Resp BP Pulse Ox
98 F 60 20 178/62 94
07/12/24 23:33 07/12/24 23:33 07/12/24 23:33 07/12/24 23:33 07/12/24 23:33
Cardiovascular:: Regular rate and rhythm
Respiratory:: Bilateral: Coarse
Lung Excursion:: Normal
Abdomen:: Nontender and Soft
Bowel Sounds:: Normal
Extremity Edema:: None: Bilateral:
[2024-07-13] MEDS: D5/0.45%NACL 1000 IV (11:45)
--- NOTE | 2024-07-13 11:54 | W.PN.HOSP.TC ---
Today's Communication/Plan
-
Per nephrology can proceed with angiogram on Monday as long as mental status and creatinine remained stable
However I suspect this mental status changes secondary to hospital-acquired delirium/ as it waxes and wanes and is worse at nighttime
Assessment / Plan
Assessment / Plan
NAD
Scleral Anicteric
MMM
No JVD
CTABL
RRR, S1/S2, II/ systolic murmur at RUSB
Soft, NT, ND, BS+
Warm, Dry
Left leg slightly cooler then right leg, unable to palpate pulses does has cap refill albeit slow at 5-6seconds
AAOx3
Calm
PAD complicated by left ischemia more chronic than acute
Plan for left lower extremity angiogram with intervention per vascular surgery plan for 07/12/2024
-- Left lower extremity angiogram held off due to MRI needs
Altered mental status intermittent likely secondary to hospital-acquired delirium
Continue frequent reorientation
MRI without findings of acute abnormalities
Zyprexa at bedtime ordered which is new
CKD stage IV
At this time reluctant about dialysis
Nephrology following very closely started on bicarb drip today in the night plan for endovascular repair/arteriogram tomorrow
Hypertension
Continue antihypertensive avoid nephrotoxic agents
Diabetes type 2
Accu-Chek sliding scale goal blood glucose 140-180 carb controlled diet
Moderate AAS/MR
Outpatient cardiology follow-up
BPH
Continue Flomax and finasteride
Anticipated Discharge: > 48 hours
Subjective/Interval History
-
Date of Service: July 13, 2024
Seen and examined. No new complaints. No acute overnight events.
Objective Data
-
Vital Signs:
Vital Signs
Temp Pulse Resp BP Pulse Ox
98.8 F 63 16 153/41 97
07/13/24 07:00 07/13/24 07:00 07/13/24 07:00 07/13/24 07:00 07/13/24 07:00
I&O
07/12/24 07/13/24 07/14/24
06:59 06:59 06:59
Intake Total 480 / 480
Output Total 1100 / 1100 1000 / 1000
Balance -620 / -620 -1000 / -1000
[2024-07-13 12:12] LABS: Glucose - Point of Care 258 mg/dl (70-99)
[2024-07-13] MEDS: NOVOLOG FLEXPEN-LOW RESISTANCE 3 UNITS SC (12:40)
[2024-07-13 15:00] VITALS: BP 151/58
[2024-07-13 16:33] LABS: Glucose - Point of Care 228 mg/dl (70-99)
[2024-07-13] MEDS: NOVOLOG FLEXPEN-LOW RESISTANCE 2 UNITS SC (17:44)
[2024-07-13] MEDS: ZYPREXA 2.5 MG PO (21:05)
[2024-07-13 22:33] LABS: Glucose - Point of Care 136 mg/dl (70-99)
[2024-07-13] MEDS: LANTUS 0.16 UNITS SC (22:43)
[2024-07-13 23:02] VITALS: BP 152/58
[2024-07-14 06:00] VITALS: BMI 21.6
[2024-07-14 07:00] VITALS: BP 140/37
[2024-07-14 07:21] LABS: Glucose - Point of Care 80 mg/dl (70-99)
[2024-07-14 07:44] LABS: Hematocrit 28.4 % (39.0-52.0); Hemoglobin 9.5 g/dL (13.0-18.0); Mean Corp Hgb Conc. 33.5 g/dL (33.0-37.0); Mean Corpuscular Hgb 30.7 pg (27.0-31.0); Mean Corpuscular Volume 91.9 fL (80.0-94.0); Mean Platelet Volume 11.4 fL (7.4-10.4); Platelet Count 210 10^3/uL (130-400); Red Blood Cell Count 3.09 10^6/uL (4.70-6.10); Red Cell Dist. Width 15.5 % (11.5-14.5)
[2024-07-14 08:37] LABS: Blood Urea Nitrogen 39 mg/dl (9-20); Calcium 9.4 mg/dl (8.4-10.2); Carbon Dioxide 26 mmol/L (22-30); Chloride 107 mmol/L (98-107); Estimated Creatinine Clearance 21 ml/min; Glucose 68 mg/dl (70-99); Potassium 3.8 mmol/L (3.5-5.1); Sodium 143 mmol/L (135-145); eGFR 26.28
[2024-07-14] MEDS: NOVOLOG FLEXPEN-LOW RESISTANCE SC (09:07)
[2024-07-14] MEDS: FLOMAX 0.4 MG PO ×2 (09:08→19:50)
[2024-07-14] MEDS: LOW STRENGTH ASPIRIN 81 MG PO (09:08)
[2024-07-14] MEDS: PROSCAR 5 MG PO (09:09)
[2024-07-14] MEDS: LOPRESSOR 50 MG PO ×2 (09:09→19:50)
[2024-07-14] MEDS: SODIUM BICARBONATE 1300 MG PO ×2 (09:09→19:50)
[2024-07-14] MEDS: VITAMIN D3 (cholecalciferol) 25 MCG PO (09:10)
[2024-07-14] MEDS: NORVASC 10 MG PO (09:10)
[2024-07-14] MEDS: HEPARIN 5000 UNITS SC ×2 (09:11→19:50)
[2024-07-14] MEDS: IMDUR (EXTENDED RELEASE) 30 MG PO (09:11)
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
--- NOTE | 2024-07-14 11:49 | W.PN.HOSP.TC ---
Today's Communication/Plan
-
Left lower extremity angiogram with vascular surgery tomorrow. N.p.o. after midnight
Would maintain Boudreaux for now as planned for surgery
Assessment / Plan
Assessment / Plan
NAD
Scleral Anicteric
MMM
No JVD
CTABL
RRR, S1/S2, II/ systolic murmur at RUSB
Soft, NT, ND, BS+
Warm, Dry
Left leg slightly cooler then right leg, unable to palpate pulses does has cap refill albeit slow at 5-6seconds
AAOx3
Calm
PAD complicated by left ischemia more chronic than acute
Plan for left lower extremity angiogram with intervention per vascular surgery plan for 07/12/2024
-- Left lower extremity angiogram held off due to MRI needs
Altered mental status intermittent likely secondary to hospital-acquired delirium
Continue frequent reorientation
MRI without findings of acute abnormalities
Zyprexa at bedtime ordered which is new
CKD stage IV
At this time reluctant about dialysis
Nephrology following very closely started on bicarb drip today in the night plan for endovascular repair/arteriogram tomorrow
Hypertension
Continue antihypertensive avoid nephrotoxic agents
Diabetes type 2
Accu-Chek sliding scale goal blood glucose 140-180 carb controlled diet
Moderate AAS/MR
Outpatient cardiology follow-up
BPH
Continue Flomax and finasteride
Anticipated Discharge: > 48 hours
Subjective/Interval History
-
Date of Service: July 14, 2024
Was seen and examined
Per nursing improved behaviors. Continue Zyprexa
Calm
No acute overnight events. No new complaints.
Objective Data
-
Labs:
Laboratory Results
07/14/24
07:21
WBC 12.0 H
Hgb 9.5 L
Hct 28.4 L
Plt Count 210
Sodium 143
Potassium 3.8
Chloride 107
Carbon Dioxide 26
BUN 39 H
Creatinine 2.4 H
Glucose 68 L
Calcium 9.4
Vital Signs:
Vital Signs
Temp Pulse Resp BP Pulse Ox
98.3 F 57 16 140/37 96
07/14/24 07:00 07/14/24 07:00 07/14/24 07:00 07/14/24 07:00 07/14/24 07:00
I&O
07/13/24 07/14/24 07/15/24
06:59 06:59 06:59
Output Total 1000 / 1000 750 / 750
Balance -1000 / -1000 -750 / -750
[2024-07-14 12:01] LABS: Glucose - Point of Care 211 mg/dl (70-99)
--- NOTE | 2024-07-14 12:51 | W.PN.NEPH.PH ---
Today's Communication / Plan
-
Follow BMP
Assessment/Plan
-
Assessment
CKD 4 (2.0)
Peripheral arterial disease
Hypertension
Diabetes mellitus type 2
Tobacco use
Moderate , MR
Right leg pain
Plan
follow BMP
IV fluids continue
I believe he can proceed with agram on monday so long MS is stable and Cr stable
would need bicarb IVF again then
eventual voiding trial
increase flomax
d/w son
-
-
Date of Service: July 14, 2024
CC / HPI / ROS
-
Chief Complaint:
PAD
History of Present Illness:
CKD stage IV with a PAD ischemic limb potential requiring vascular intervention
DONALD/Cr up to 2.4
BP high but stable
hinton in place for retention
Review of Systems:.
No chest pain or shortness of breath
Labs
-
Labs:
WBC 12.0 10^3/uL (4.8-10.8) H 07/14/24 07:21
RBC 3.09 10^6/uL (4.70-6.10) L 07/14/24 07:21
Hgb 9.5 g/dL (13.0-18.0) L 07/14/24 07:21
Hct 28.4 % (39.0-52.0) L 07/14/24 07:21
Plt Count 210 10^3/uL (130-400) 07/14/24 07:21
Sodium 143 mmol/L (135-145) 07/14/24 07:21
Potassium 3.8 mmol/L (3.5-5.1) 07/14/24 07:21
Chloride 107 mmol/L (98-107) 07/14/24 07:21
Carbon Dioxide 26 mmol/L (22-30) 07/14/24 07:21
BUN 39 mg/dl (9-20) H 07/14/24 07:21
Creatinine 2.4 mg/dL (0.7-1.3) H 07/14/24 07:21
eGFR 26.28 07/14/24 07:21
Glucose 68 mg/dl (70-99) L 07/14/24 07:21
Calcium 9.4 mg/dl (8.4-10.2) 07/14/24 07:21
Albumin 3.7 g/dl (3.5-5.0) 07/08/24 18:34
Physical Exam
-
Vital Signs:
Vital Signs
Temp Pulse Resp BP Pulse Ox
98.3 F 57 16 140/37 96
07/14/24 07:00 07/14/24 07:00 07/14/24 07:00 07/14/24 07:00 07/14/24 07:00
Cardiovascular:: Regular rate and rhythm
Respiratory:: Bilateral: Coarse
Lung Excursion:: Normal
Abdomen:: Nontender and Soft
Bowel Sounds:: Normal
Extremity Edema:: None: Bilateral:
[2024-07-14] MEDS: NOVOLOG FLEXPEN-LOW RESISTANCE 2 UNITS SC (12:59)
[2024-07-14] MEDS: D5/0.45%NACL 1000 IV (14:52)
[2024-07-14 15:00] VITALS: BP 135/46
[2024-07-14 16:13] LABS: Glucose - Point of Care 196 mg/dl (70-99)
[2024-07-14] MEDS: NOVOLOG FLEXPEN-LOW RESISTANCE 1 UNITS SC (17:25)
[2024-07-14] MEDS: VIBRAMYCIN 100 MG PO (19:50)
[2024-07-14] MEDS: ZYPREXA 2.5 MG PO (19:50)
[2024-07-14] MEDS: TYLENOL 650 MG PO (19:50)
[2024-07-14 21:41] LABS: Glucose - Point of Care 290 mg/dl (70-99)
[2024-07-14] MEDS: LANTUS 0.08 UNITS SC (22:18)
[2024-07-14 23:27] VITALS: BP 152/54
[2024-07-15] VITALS (12 sets, daily range): BP systolic 140–182; BP diastolic 49–78; BMI 22.0
[2024-07-15] MEDS: D5/0.45%NACL 1000 IV ×2 (03:13→13:49)
--- NOTE | 2024-07-15 06:02 | PTCARENOTE ---
pt has been npo and got chg bath with linen change
[2024-07-15 06:14] LABS: Glucose - Point of Care 209 mg/dl (70-99)
[2024-07-15] MEDS: NOVOLOG FLEXPEN-LOW RESISTANCE 2 UNITS SC ×2 (06:18→13:49)
--- NOTE | 2024-07-15 06:28 | W.PN.HOSP.TC ---
Today's Communication/Plan
-
angiogram w/ possible intervention as per Vascular
Assessment / Plan
Assessment / Plan
Physical Exam
General: NAD
HEENT: Scleral Anicteric MMM No JVD
Pulm: CTABL
Cardio: RRR, S1/S2, II/ systolic murmur at RUSB
Abd: Soft, NT, ND, BS+
Skin: Warm, Dry
Neuro: AAOx3
Psych: Calm
84M ASCVD diabetes CKDIV Hypothyroidism Rosacea here for PAD critical limb ischemia RLE
PAD
Right lower extremity angiogram with intervention per vascular surgery planned for today 07/15/2024
Altered mental status intermittent likely secondary to hospital-acquired delirium
Continue frequent reorientation
MRI without findings of acute abnormalities, chronic infarcts noted
New Zyprexa at bedtime ordered, mental status since improved, cont
CKD stage IV
At this time reluctant about dialysis
Nephro eval appreciated
contrast IVF ppx as per nephro
Hypertension
Continue antihypertensive avoid nephrotoxic agents
Diabetes type 2
sliding scale
Lantus 16U
monitor and titrate insulin regimen as necessary
Moderate AAS/MR
Outpatient cardiology follow-up
BPH
Continue Flomax and finasteride
07/15/24 AOx3 at capacity to make his own decisions. Patient has indicated that, if unable to make his own decisions, he would like his children (sons Leonidas and Tremayne and daughter Neisha) to make his decisions for him.
DVT ppx
DNR
discussed with patient and patient's son Tremayne and daughter Neisha
I spent a total of 45 minutes with the patient or on the floor. More than 50% of this time involved counseling and coordination of care.
Anticipated Discharge: 24 - 48 hours
Subjective/Interval History
-
Date of Service: July 15, 2024
no acute distress resting comfortably in bed. AOx3 conversant coherent. Son and daughter present during evaluation
Objective Data
-
Labs:
Laboratory Results
07/15/24
06:00
WBC Pending
Hgb Pending
Hct Pending
Plt Count Pending
Sodium Pending
Potassium Pending
Chloride Pending
Carbon Dioxide Pending
BUN Pending
Creatinine Pending
Glucose Pending
Calcium Pending
Vital Signs:
Vital Signs
Temp Pulse Resp BP Pulse Ox
98.5 F 63 18 152/54 96
07/14/24 23:27 07/14/24 23:27 07/14/24 23:27 07/14/24 23:27 07/14/24 23:27
I&O
07/13/24 07/14/24 07/15/24
06:59 06:59 06:59
Output Total 1000 / 1000 750 / 750 1000 / 1000
Balance -1000 / -1000 -750 / -750 -1000 / -1000
[2024-07-15] MEDS: SODIUM BICARBONATE 1300 MG PO ×2 (07:50→22:00)
--- NOTE | 2024-07-15 07:51 | W.PN.UPDATE ---
Update Note
Progress Note Update
Patient seen at bedside this a.m. with Dr. Fay. Patient's mental status seems to be stable at this time. No events overnight. Patient agreeable to right lower extremity arteriogram, possible bypass with Dr. Fay today. Will keep patient n.p.o.
except for medications. Creatinine is pending this morning. Will check back on her labs before proceeding with procedure.
[2024-07-15] MEDS: VIBRAMYCIN 100 MG PO ×2 (07:53→22:00)
[2024-07-15] MEDS: FLOMAX 0.4 MG PO ×2 (07:54→22:00)
[2024-07-15] MEDS: PROSCAR 5 MG PO (07:54)
[2024-07-15] MEDS: VITAMIN D3 (cholecalciferol) 25 MCG PO (07:54)
[2024-07-15] MEDS: LOW STRENGTH ASPIRIN 81 MG PO (07:54)
[2024-07-15] MEDS: NORVASC 10 MG PO (07:54)
[2024-07-15] MEDS: IMDUR (EXTENDED RELEASE) 30 MG PO (07:55)
[2024-07-15] MEDS: HEPARIN 5000 UNITS SC (07:55)
[2024-07-15] MEDS: LOPRESSOR 50 MG PO ×2 (08:00→21:58)
[2024-07-15 08:23] LABS: Hematocrit 25.3 % (39.0-52.0); Hemoglobin 8.7 g/dL (13.0-18.0); Mean Corp Hgb Conc. 34.4 g/dL (33.0-37.0); Mean Corpuscular Hgb 31.2 pg (27.0-31.0); Mean Corpuscular Volume 90.7 fL (80.0-94.0); Mean Platelet Volume 11.9 fL (7.4-10.4); Platelet Count 190 10^3/uL (130-400); Red Blood Cell Count 2.79 10^6/uL (4.70-6.10); Red Cell Dist. Width 15.1 % (11.5-14.5); White Blood Cell Count 10.9 10^3/uL (4.8-10.8)
[2024-07-15 09:13] LABS: Blood Urea Nitrogen 36 mg/dl (9-20); Calcium 8.7 mg/dl (8.4-10.2); Carbon Dioxide 27 mmol/L (22-30); Chloride 107 mmol/L (98-107); Estimated Creatinine Clearance 26 ml/min; Glucose 194 mg/dl (70-99); Potassium 3.8 mmol/L (3.5-5.1); Sodium 138 mmol/L (135-145); eGFR 32.71
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
[2024-07-15 12:07] LABS: Glucose - Point of Care 210 mg/dl (70-99)
--- NOTE | 2024-07-15 14:30 | W.PN.NEPH.PH ---
Today's Communication / Plan
-
For arteriogram today with IV fluids, prophylax
Assessment/Plan
-
Assessment
CKD 4 (2.0)
Peripheral arterial disease
Hypertension
Diabetes mellitus type 2
Tobacco use
Moderate , MR
Right leg pain
Plan
follow BMP
creatinine down to 2, non oliguric
A gram for today with contrast IVFs propylaxis
eventual voiding trial
Maintain escalated flomax dosage
d/w son
-
-
Date of Service: July 15, 2024
CC / HPI / ROS
-
Chief Complaint:
PAD
History of Present Illness:
CKD stage IV with a PAD ischemic limb potential requiring vascular intervention
DONALD/Cr down to 2
BP stable
hinton in place for retention
Review of Systems:.
No chest pain or shortness of breath lethargic
Labs
-
Labs:
WBC 10.9 10^3/uL (4.8-10.8) H 07/15/24 07:22
RBC 2.79 10^6/uL (4.70-6.10) L 07/15/24 07:22
Hgb 8.7 g/dL (13.0-18.0) L 07/15/24 07:22
Hct 25.3 % (39.0-52.0) L 07/15/24 07:22
Plt Count 190 10^3/uL (130-400) 07/15/24 07:22
Sodium 138 mmol/L (135-145) 07/15/24 07:22
Potassium 3.8 mmol/L (3.5-5.1) 07/15/24 07:22
Chloride 107 mmol/L (98-107) 07/15/24 07:22
Carbon Dioxide 27 mmol/L (22-30) 07/15/24 07:22
BUN 36 mg/dl (9-20) H 07/15/24 07:22
Creatinine 2.0 mg/dL (0.7-1.3) H 07/15/24 07:22
eGFR 32.71 07/15/24 07:22
Glucose 194 mg/dl (70-99) H 07/15/24 07:22
Calcium 8.7 mg/dl (8.4-10.2) 07/15/24 07:22
Albumin 3.7 g/dl (3.5-5.0) 07/08/24 18:34
Physical Exam
-
Vital Signs:
Vital Signs
Temp Pulse Resp BP Pulse Ox
98.6 F 78 18 140/52 99
07/15/24 07:59 07/15/24 07:59 07/15/24 07:59 07/15/24 07:59 07/15/24 07:59
Cardiovascular:: Regular rate and rhythm
Respiratory:: Bilateral: Coarse
Lung Excursion:: Normal
Abdomen:: Nontender and Soft
Bowel Sounds:: Normal
Extremity Edema:: None: Bilateral:
Hinton Catheter: Yes
[2024-07-15 17:02] LABS: Glucose - Point of Care 230 mg/dl (70-99)
[2024-07-15] MEDS: NOVOLOG FLEXPEN-LOW RESISTANCE SC (17:29)
--- NOTE | 2024-07-15 17:41 | PTCARENOTE ---
Received pt via bed to [facility] [employer] [facility] recovery bay 8, pt alert, oriented x3, c/o intermittent pain in great toe & rates 11/13, daughter & son at bedside, Dr Fay obtained consent and then family said goodbye, pt placed on monitor- showing NSR, temp 99.5,
skin warm and dry, radial pulses normal, right PT only with doppler, left DP by doppler, denies SOB, O2 sat 97% on room air, abd soft with +BS, chronic hinton in place with yellow urine, #22P intact in right wrist with D5 1/2 nss infusing, new #18P
inserted in LAC, accucheck at 1735- [address] Montero aware, bilat groins clipped as well as right leg, pt denies questions
--- NOTE | 2024-07-15 17:43 | W.PN.UPDATE ---
Update Note
Progress Note Update
Discussed extensively with patient and his daughter at the bedside plan for angiography. Discussed possible angioplasty/stent. Discussed if unable to angioplasty/stent successfully, could stage surgical bypass. Initially had planned for
concomitant bypass if unable to stent. I discussed that based on his hospital course may be better to stage and weight. However patient and his family would prefer to proceed at this time if possible. They feel that this may be his window.
Patient notes continued pain in the right foot as well. Therefore I discussed all that with them. Discussed risks of angiogram/angioplasty/stent including but not limited to bleeding, arterial injury/worsened or acute limb ischemia, renal failure.
Discussed risks of bypass including prolonged surgical time, prolonged hospital stay and recovery, bleeding, infection/deep wound infections, thromboses/stenoses of bypass graft, persistent limb threat. They understand all these things and wished
to proceed.
--- NOTE | 2024-07-15 17:45 | W.SUR.PREOP ---
Pre-Operative Surgical Note
-
I have examined this patient prior to the performance of the scheduled procedure.
The patient's condition is unchanged from the time of the current History and
Physical and the patient is able to undergo the scheduled procedure.
[2024-07-15 17:47] LABS: Glucose - Point of Care 205 mg/dl (70-99)
--- NOTE | 2024-07-15 18:15 | PTCARENOTE ---
Hand off report given to Romelia Alcantara Pt transferred to vascular OR.
--- NOTE | 2024-07-15 19:23 | W.SUR.POST ---
Surgical Immediate Post Op
Note
Pre Op Diagnosis: PAD
Post Op Diagnosis: PAD
Procedure Performed: RLE arteriogram, right external iliac artery balloon angioplasty and stent placement
Primary Surgeon: Sumeet
Anesthesia: Local and sedation
Estimated Blood Loss: <2cc
Fluids: See anesthesia flow sheet
Drains/Shunts: none
Specimens/Cultures: none
Doppler/Duplex/Angio (Y/N): Y
Complications: none
Operative Findings: tremendously diffuse calcified arteries, complete occlusion SFA unable to re-enter
--- NOTE | 2024-07-15 20:01 | OR.RPT ---
Operative Report
Operative Report
PROCEDURE DATE: 07/15/2024
Preoperative diagnosis: Chronic limb threatening ischemia right lower extremity
Postoperative diagnosis: Same
Procedure:
1. Duplex assisted left common femoral artery cannulation.
2. Aortogram and pelvic angiogram.
3. Right lower extremity arteriogram with third vessel catheterization of right superficial femoral artery via left common femoral artery puncture.
4. Attempted subintimal recanalization of occluded right superficial femoral artery.
5. Balloon angioplasty and stent placement severe right external iliac artery stenosis with 8 mm x 6 cm Cook Zilver PTX self-expanding drug-eluting stent.
6. Left femoral angiogram.
7. Supervision and interpretation.
Surgeon: Sumeet
Sausage Grinder: None
Complications: None
Anesthesia: Local, sedation
Fluoroscopy:
25.5 min
127 mGy
21.32 gy.cm2
Indications for procedure:
Chronic limb threatening ischemia. Severe calcified plaque and extensive peripheral arterial disease throughout vessels noted on CT scan. Brought for angiography. Risk/benefits/alternatives also discussed. Patient understood all wished to
proceed.
Description of procedure:
Patient was identified, brought to the operating room. Placed on the table in the supine position. After the adequate administration of anesthesia, the patient was prepped and draped in the standard surgical fashion. A standard preoperative
timeout was undertaken and everybody was in agreement with the plan.
The left common femoral artery was accessed with a micropuncture kit under direct duplex ultrasound guidance. A 5 Rwandan sheath was then advanced over a 0.035 inch wire, and a maguire's hook catheter was advanced into the abdominal aorta.
Aortogram and pelvic angiogram was obtained. Findings as follows:
Infrarenal aorta: Patent with severe eccentric calcified plaque. No severe stenosis.
Right common iliac artery: Patent with severe eccentric calcified plaque, no definitive severe stenosis.
Right external iliac artery: Patent with severe eccentric calcified plaque, proximally with severe stenosis as noted on CT scan.
Left common iliac artery: Patent with severe eccentric calcified plaque, no definitive stenosis.
Left external iliac artery: Patent with severe eccentric calcified plaque, no definitive severe stenosis.
Using a floppy angled hydrophilic wire, the right common femoral artery was cannulated and the catheter was advanced. Right lower extremity arteriogram was obtained. Findings as follows:
Common femoral artery: Severe calcified plaque, patent with luminal irregularities and at least moderate stenosis especially in the distal third.
Profunda femoris artery: Occluded at the origin. On delayed imaging could be seen to fill more distally.
Superficial femoral artery: Patent proximally with luminal irregularities. Large collateral emanated and then the vessel occluded beyond there. Severe calcified plaque could be seen even on plain fluoroscopy. Reconstitution of above-knee
popliteal artery noted.
Popliteal artery: Patent with minor luminal irregularities but no severe stenosis in the behind the knee and below knee reconstituted segments.
Anterior tibial artery: Occluded chronically
Tibial peroneal trunk: Patent with luminal irregularities and possible mild to moderate stenosis.
Peroneal artery: Patent, diffusely diseased. No definitive severe stenosis. The more dominant runoff vessel to the ankle and foot.
Posterior tibial artery: Patent, diffusely diseased. Diffusely small throughout its course, but no severe focal stenosis. Crossed the ankle but again diseased vessel.
At this point I cannulated the superficial femoral artery and then exchanged over a Storq wire for 6 Rw[place]an up and over sheath. The patient was given 5000's of intravenous heparin. Now under roadmap assisted guidance I gained subintimal access
into the occluded SFA using a flopping of hydrophilic wire and a CXI catheter. Initially I maintained the true lumen access, but then it was completely occluded and had to go subintimally. Once I did this, I was able to pass my looped wire down to
the above-knee popliteal vicinity, but was unable to reenter. I tried multiple times. I pulled back my catheter and wire and tried different planes. I tried different wires. No success. Therefore at this point, I exchanged back for a Storq wire
in the SFA, and reimaged the right external iliac artery proximally. At the point of the severe stenosis I placed an 8 mm x 6 cm Zilver PTX self-expanding drug-eluting stent. This was postangioplasty with an 8 mm balloon. Completion angiogram
demonstrated excellent result with good resolution of that stenosis. Femoral pulse in the right groin was noted to improve. At this point I felt that there is nothing else endovascularly to do here. I felt that the patient would require extensive
femoral endarterectomy with profundoplasty and revascularization of the occluded profunda origin, with likely bypass to the below-knee popliteal artery. He is a high risk patient with marginal vein (reasonable size but varicose noted on CT) and
severe calcified vessels throughout with possibly difficult proximal control (circumferential calcified plaque in the distal external iliac artery), and also poor outflow (diseased infrapopliteal vessels and diseased inframalleolar flow). Therefore
at this point I elected not to proceed with any further surgical revascularization. Wires and catheters were withdrawn. The sheath was drawn and manual pressure was applied to the puncture site. Hemostasis was fully achieved. Protamine had been
given reverse the heparin.
The patient tolerated procedure well.
[2024-07-15] MEDS: HEPARIN 25000 UNITS/250 ML IV (20:10)
[2024-07-15] MEDS: PLAVIX 300 MG PO (20:15)
[2024-07-15 20:29] LABS: Glucose - Point of Care 168 mg/dl (70-99)
[2024-07-15 21:07] LABS: Hematocrit 28.3 % (39.0-52.0); Hemoglobin 9.7 g/dL (13.0-18.0); Mean Corp Hgb Conc. 34.3 g/dL (33.0-37.0); Mean Corpuscular Hgb 31.1 pg (27.0-31.0); Mean Corpuscular Volume 90.7 fL (80.0-94.0); Mean Platelet Volume 11.6 fL (7.4-10.4); Platelet Count 197 10^3/uL (130-400); Red Blood Cell Count 3.12 10^6/uL (4.70-6.10); Red Cell Dist. Width 15.4 % (11.5-14.5)
[2024-07-15 21:23] LABS: APTT 38.1 Sec (23.4-35.0)
[2024-07-15] MEDS: NSS 1000 IV (21:37)
[2024-07-15] MEDS: ZYPREXA 2.5 MG PO (21:59)
[2024-07-15] MEDS: PROTONIX 40 MG PO (22:00)
[2024-07-15 22:09] LABS: Glucose - Point of Care 190 mg/dl (70-99)
[2024-07-15] MEDS: LANTUS 0.16 UNITS SC (22:10)
[2024-07-16] VITALS (7 sets, daily range): BP systolic 144–158; BP diastolic 43–77; BMI 22.3
[2024-07-16 00:50] LABS: Albumin 3.34 g/dL (3.75-5.01); Alpha 1 Globulin 0.35 g/dL (0.19-0.46); Alpha 2 Globulin 1.02 g/dL (0.48-1.05); Free Kappa Light Chains,Quant 109.57 mg/L (3.30-19.40); Free Lambda Light Chains,Quant 48.04 mg/L (5.71-26.30); IgA 636 mg/dL (68-408); IgG 828 mg/dL (768-1632); IgM 88 mg/dL (35-263); Immunofixation Electrophoresis IFE Done; Kappa/Lambda Fr Light Ratio 2.28 (0.26-1.65); Monoclonal Protein 0.69 g/dL (<=0.00); Total Protein-Electrophoresis 6.6 g/dL (6.3-8.2)
--- NOTE | 2024-07-16 02:17 | PTCARENOTE ---
Patient returned from PACU around 21:15. AAOx2-3. Denies pain. Left femoral dressing intact with + pulse. heparin gtt infusing at 11ml/hr. Vitals stable. Patient educated on restrictions with patient stating verbal understanding. Call ennis within
reach.
[2024-07-16 03:18] LABS: APTT 75.1 Sec (23.4-35.0)
[2024-07-16 07:48] LABS: Glucose - Point of Care 239 mg/dl (70-99)
[2024-07-16 09:03] LABS: Hematocrit 25.5 % (39.0-52.0); Hemoglobin 8.4 g/dL (13.0-18.0); Mean Corp Hgb Conc. 32.9 g/dL (33.0-37.0); Mean Corpuscular Hgb 30.4 pg (27.0-31.0); Mean Corpuscular Volume 92.4 fL (80.0-94.0); Platelet Count 188 10^3/uL (130-400); Red Blood Cell Count 2.76 10^6/uL (4.70-6.10); Red Cell Dist. Width 15.3 % (11.5-14.5); White Blood Cell Count 10.3 10^3/uL (4.8-10.8)
[2024-07-16] MEDS: NOVOLOG FLEXPEN-LOW RESISTANCE 2 UNITS SC (09:05)
[2024-07-16] MEDS: NORVASC 10 MG PO (09:06)
[2024-07-16] MEDS: PROTONIX 40 MG PO (09:06)
[2024-07-16] MEDS: IMDUR (EXTENDED RELEASE) 30 MG PO (09:06)
[2024-07-16] MEDS: VIBRAMYCIN 100 MG PO ×2 (09:07→20:30)
[2024-07-16] MEDS: FLOMAX 0.4 MG PO ×2 (09:07→20:30)
[2024-07-16] MEDS: LOW STRENGTH ASPIRIN 81 MG PO (09:07)
[2024-07-16] MEDS: SODIUM BICARBONATE 1300 MG PO ×2 (09:07→20:30)
[2024-07-16] MEDS: VITAMIN D3 (cholecalciferol) 25 MCG PO (09:07)
[2024-07-16] MEDS: PLAVIX 75 MG PO (09:07)
[2024-07-16] MEDS: PROSCAR 5 MG PO (09:07)
[2024-07-16] MEDS: LOPRESSOR 50 MG PO ×2 (09:07→20:30)
[2024-07-16 09:31] LABS: APTT 55.9 Sec (23.4-35.0)
[2024-07-16 10:11] LABS: Blood Urea Nitrogen 29 mg/dl (9-20); Calcium 8.7 mg/dl (8.4-10.2); Carbon Dioxide 23 mmol/L (22-30); Chloride 114 mmol/L (98-107); Estimated Creatinine Clearance 25 ml/min; Glucose 191 mg/dl (70-99); Magnesium 1.6 mg/dl (1.6-2.3); Phosphorus 2.7 mg/dl (2.5-4.5); Sodium 141 mmol/L (135-145); eGFR 30.85
[2024-07-16] MEDS: D5/0.45%NACL IV (10:45)
[2024-07-16 11:17] LABS: Glucose - Point of Care 296 mg/dl (70-99)
--- NOTE | 2024-07-16 11:35 | W.PN.HOSP.TC ---
Today's Communication/Plan
-
see a/p
Assessment / Plan
Assessment / Plan
Physical Exam
General: NAD
HEENT: Scleral Anicteric MMM No JVD
Pulm: CTABL
Cardio: RRR, S1/S2, II/ systolic murmur
Abd: Soft, NT, ND, BS+
Skin: Warm, Dry
Neuro: AAOx3
Psych: Calm
84M ASCVD diabetes CKDIV Hypothyroidism Rosacea here for PAD critical limb ischemia RLE
PAD
RLE critical limb ischemia
Vascular eval appreciated
Right lower extremity angiogram/angioplasty with stent placement 07/15/2024
cont hep gtt as per Vascular
PT eval appreciated home health
Altered mental status intermittent likely secondary to hospital-acquired delirium
Continue frequent reorientation
MRI without findings of acute abnormalities, chronic infarcts noted
New Zyprexa at bedtime ordered, mental status since improved, cont
CKD stage IV
At this time reluctant about dialysis
Nephro eval appreciated
contrast IVF ppx as per nephro since completed
Hypertension
Continue antihypertensive avoid nephrotoxic agents
Diabetes type 2
sliding scale
Novolog 3U
Lantus 16U
monitor and titrate insulin regimen as necessary
Moderate AAS/MR
Outpatient cardiology follow-up
BPH
Continue Flomax and finasteride
Stage 1 bilateral heel pressure injury
cont local wound care
07/15/24 AOx3 at capacity to make his own decisions. Patient has indicated that, if unable to make his own decisions, he would like his children (sons Leonidas and Tremayne and daughter Neisha) to make his decisions for him.
DVT ppx
DNR
I spent a total of 45 minutes with the patient or on the floor. More than 50% of this time involved counseling and coordination of care.
Anticipated Discharge: 24 - 48 hours
Subjective/Interval History
-
Date of Service: July 16, 2024
no acute distress, appears comfortable at this time at rest. Overall reports feeling well, mild pain but manageable with Tylenol at this time.
Objective Data
-
Labs:
Laboratory Results
07/16/24 07/16/24 07/16/24
02:50 08:45 16:26
WBC 10.3
Hgb 8.4 L
Hct 25.5 L
Plt Count 188
APTT 75.1 H 55.9 H Pending
Sodium 141
Potassium 4.0
Chloride 114 H
Carbon Dioxide 23
BUN 29 H
Creatinine 2.1 H
Glucose 191 H
Calcium 8.7
Vital Signs:
Vital Signs
Temp Pulse Resp BP Pulse Ox
98.1 F 65 18 158/51 96
07/16/24 11:00 07/16/24 11:00 07/16/24 11:00 07/16/24 11:00 07/16/24 11:00
I&O
07/15/24 07/16/24 07/17/24
06:59 06:59 06:59
Intake Total 840 / 840 1551 / 1551
Output Total 1000 / 1000 1550 / 1550
Balance -160 / -160
--- NOTE | 2024-07-16 11:51 | W.PN.VS ---
Today's Communication / Plan
-
See below.
Assessment/Plan
-
Assessment: 84-year-old male POD #1 Right lower extremity arteriogram with third vessel catheterization of right superficial femoral artery via left common femoral artery puncture, attempted subintimal recanalization of occluded right superficial
femoral artery, balloon angioplasty and stent placement severe right external iliac artery stenosis with 8 mm x 6 cm Cook Zilver PTX self-expanding drug-eluting stent
Plan:
Although iliac artery stenosis was able to be treated, unable to endovascularly intervene on occluded right SFA. However, patient endorses that he has had vast improvement in right lower extremity rest pain, and given resolution of pain would not
be unreasonable to trial how patient feels without attempting additional revascularizations. Patient would require bypass for SFA occlusion, which in itself would be challenging as his distal targets are also heavily plaque laden. Reviewed all this
in length with patient, patient's son Tremayne, and patient's daughter Neisha all agree they would like to have more time to reevaluate options and if they feel pursuing additional revascularization with open bypass would be in their father's best
interest. Our team will return tomorrow to see if patient continues to have resolution of rest pain, in the interim would continue heparin infusion.
Can remove Tegaderm from left groin puncture site later this afternoon
Subjective Data
-
Date of Service: July 16, 2024
Patient seen evaluated bedside, reports vast improvement in right lower extremity foot rest pain. Reports that he was able to sleep throughout the night and experienced only 1 episode of intermittent pain that quickly resolved. Denies nausea,
vomiting, fever, chills, or pain at left puncture site. Son at bedside.
Objective Data
-
Vital Signs
Temp Pulse Resp BP Pulse Ox
98.1 F 65 18 158/51 96
07/16/24 11:00 07/16/24 11:00 07/16/24 11:00 07/16/24 11:00 07/16/24 11:00
Intake and Output
05/12/25 05/13/25 05/14/25
06:59 06:59 06:59
Intake Total 840 / 840 1551 / 1551
Output Total 1000 / 1000 1550 / 1550
Balance -160 / -160
Intake:
Oral fluids 720 / 720
IV fluids (Total) 840 / 840 720 / 720
IV piggybacks 111 / 111
Output:
Urine, [place] 1000 / 1000 1550 / 1550
Lab Results
07/16/24 08:45
07/16/24 08:45
Calcium 8.7 mg/dl (8.4-10.2) 07/16/24 08:45
Phosphorus 2.7 mg/dl (2.5-4.5) 07/16/24 08:45
Magnesium 1.6 mg/dl (1.6-2.3) 07/16/24 08:45
Total Bilirubin 0.4 mg/dl (0.2-1.3) 07/08/24 18:34
AST 17 U/L (17-59) 07/08/24 18:34
ALT 15 U/L (0-50) 07/08/24 18:34
Alkaline Phosphatase 59 U/L (38-126) 07/08/24 18:34
Total Protein 6.8 g/dl (6.3-8.2) 07/08/24 18:34
Albumin 3.7 g/dl (3.5-5.0) 07/08/24 18:34
Physical Exam
-
No apparent distress, resting in bed comfortably
No tachycardia
No dyspnea on room air
ABD flat, nontender, nondistended
Left groin puncture site CDI, flat, no evidence of hematoma or edema, all surrounding compartments soft
Bilateral feet warm, right PT Doppler signal present
[2024-07-16] MEDS: NOVOLOG FLEXPEN 3 UNITS SC ×2 (12:52→18:09)
[2024-07-16] MEDS: NOVOLOG FLEXPEN-LOW RESISTANCE 3 UNITS SC (12:52)
--- NOTE | 2024-07-16 13:18 | CM ---
Addendum entered by Shavon Junior 07/16/24 14:43:
Patient seen bedside, patient reports he is comfortable leaving his son, Leonidas, on the contact list.
Original Note:
CM reviewed chart, spoke with patients son, Tremayne, in hallway, patients daughter, Neisha, on phone. Shannan from [facility] out yesterday to meet with patient. Tremayne and Neisha report concern with their sibling, Leonidas, visiting patient- ultimately up to patient
if he would like son to visit/have contact. Family report they are having a notary come today to complete POA paperwork, aware Hospital staff cannot sign as witness.
Request to Hospitalist with PT/OT [place]. CM will continue to follow for all discharge planning needs.
Plan; PT/OT to evaluate for SNF placement, will need auth if SNF recommended
--- NOTE | 2024-07-16 15:00 | W.PN.NEPH.PH ---
Today's Communication / Plan
-
Follow-up BMP tomorrow for 48-hour window post a gram
Assessment/Plan
-
Assessment
CKD 4 (2.0)
Peripheral arterial disease
Hypertension
Diabetes mellitus type 2
Tobacco use
Moderate , MR
Right leg pain
Plan
follow BMP
creatinine stable at 2.1 status post a gram on 07/15/2024, non oliguric
eventual voiding trial
Maintain escalated flomax dosage
-
-
Date of Service: July 16, 2024
CC / HPI / ROS
-
Chief Complaint:
PAD
History of Present Illness:
CKD stage IV with a PAD ischemic limb potential requiring vascular intervention
DONALD/Cr down to 2.1
BP stable
hinton in place for retention
Review of Systems:.
No chest pain or shortness of breath lethargic
Lower extremity claudication improving following a gram PCI of iliac crest
Labs
-
Labs:
WBC 10.3 10^3/uL (4.8-10.8) 07/16/24 08:45
RBC 2.76 10^6/uL (4.70-6.10) L 07/16/24 08:45
Hgb 8.4 g/dL (13.0-18.0) L 07/16/24 08:45
Hct 25.5 % (39.0-52.0) L 07/16/24 08:45
Plt Count 188 10^3/uL (130-400) 07/16/24 08:45
Sodium 141 mmol/L (135-145) 07/16/24 08:45
Potassium 4.0 mmol/L (3.5-5.1) 07/16/24 08:45
Chloride 114 mmol/L (98-107) H 07/16/24 08:45
Carbon Dioxide 23 mmol/L (22-30) 07/16/24 08:45
BUN 29 mg/dl (9-20) H 07/16/24 08:45
Creatinine 2.1 mg/dL (0.7-1.3) H 07/16/24 08:45
eGFR 30.85 07/16/24 08:45
Glucose 191 mg/dl (70-99) H 07/16/24 08:45
Calcium 8.7 mg/dl (8.4-10.2) 07/16/24 08:45
Phosphorus 2.7 mg/dl (2.5-4.5) 07/16/24 08:45
Albumin 3.7 g/dl (3.5-5.0) 07/08/24 18:34
Physical Exam
-
Vital Signs:
Vital Signs
Temp Pulse Resp BP Pulse Ox
98.1 F 65 18 158/51 96
07/16/24 11:00 07/16/24 11:00 07/16/24 11:00 07/16/24 11:00 07/16/24 11:00
Cardiovascular:: Regular rate and rhythm
Respiratory:: Bilateral: Coarse
Lung Excursion:: Normal
Abdomen:: Nontender and Soft
Bowel Sounds:: Normal
Extremity Edema:: None: Bilateral:
Hinton Catheter: Yes
[2024-07-16 16:03] LABS: Glucose - Point of Care 150 mg/dl (70-99)
[2024-07-16 16:50] LABS: APTT 166.3 Sec (23.4-35.0)
[2024-07-16] MEDS: TYLENOL 1000 MG PO (17:31)
[2024-07-16] MEDS: NOVOLOG FLEXPEN-LOW RESISTANCE 1 UNITS SC (18:08)
[2024-07-16] MEDS: HEPARIN 25000 UNITS/250 ML IV (19:12)
[2024-07-16 19:56] LABS: Vitamin B1, Whole Blood 124 nmol/L (70-180)
[2024-07-16 21:17] LABS: Glucose - Point of Care 239 mg/dl (70-99)
[2024-07-16] MEDS: LANTUS 0.16 UNITS SC (21:49)
[2024-07-16] MEDS: ZYPREXA 2.5 MG PO (21:49)
[2024-07-16] MEDS: TYLENOL 650 MG PO (21:55)
[2024-07-17 00:25] LABS: APTT > 200 Sec (23.4-35.0)
--- NOTE | 2024-07-17 00:36 | PTCARENOTE ---
00:30 PTT resulted in greater than 200. per order, Heparin put on hold for two hours and will be restarted in two hours at a decreased rate of 9 ml/hr. INORGANIC CHEMICAL TECHNICIAN made aware with no new orders.
[2024-07-17 06:00] VITALS: BMI 22.1
[2024-07-17 07:24] VITALS: BP 156/57
[2024-07-17 07:46] LABS: Glucose - Point of Care 139 mg/dl (70-99)
[2024-07-17] MEDS: NOVOLOG FLEXPEN-LOW RESISTANCE SC ×2 (07:53→17:38)
[2024-07-17] MEDS: LOPRESSOR 50 MG PO ×2 (08:05→21:01)
[2024-07-17] MEDS: VITAMIN D3 (cholecalciferol) 25 MCG PO (08:05)
[2024-07-17] MEDS: FLOMAX 0.4 MG PO ×2 (08:05→21:01)
[2024-07-17] MEDS: PROTONIX 40 MG PO (08:05)
[2024-07-17] MEDS: PROSCAR 5 MG PO (08:05)
[2024-07-17] MEDS: SODIUM BICARBONATE 1300 MG PO ×2 (08:05→21:01)
[2024-07-17] MEDS: LOW STRENGTH ASPIRIN 81 MG PO (08:05)
[2024-07-17] MEDS: IMDUR (EXTENDED RELEASE) 30 MG PO (08:05)
[2024-07-17] MEDS: NORVASC 10 MG PO (08:05)
[2024-07-17] MEDS: VIBRAMYCIN 100 MG PO ×2 (08:05→21:01)
[2024-07-17] MEDS: PLAVIX 75 MG PO (08:06)
[2024-07-17] MEDS: NOVOLOG FLEXPEN SC (08:09)
[2024-07-17 08:35] LABS: Hematocrit 25.6 % (39.0-52.0); Hemoglobin 8.5 g/dL (13.0-18.0); Mean Corp Hgb Conc. 33.2 g/dL (33.0-37.0); Mean Corpuscular Hgb 30.5 pg (27.0-31.0); Mean Corpuscular Volume 91.8 fL (80.0-94.0); Mean Platelet Volume 12.1 fL (7.4-10.4); Platelet Count 183 10^3/uL (130-400); Red Blood Cell Count 2.79 10^6/uL (4.70-6.10); White Blood Cell Count 9.4 10^3/uL (4.8-10.8)
[2024-07-17] MEDS: NOVOLOG FLEXPEN 5 UNITS SC ×3 (09:09→17:43)
[2024-07-17 09:14] LABS: APTT 153.1 Sec (23.4-35.0)
--- NOTE | 2024-07-17 09:14 | W.PN.HOSP.TC ---
Today's Communication/Plan
-
see a/p
Assessment / Plan
Assessment / Plan
Physical Exam
General: NAD
HEENT: Scleral Anicteric MMM No JVD
Pulm: CTABL
Cardio: RRR, S1/S2, II/ systolic murmur
Abd: Soft, NT, ND, BS+
Skin: Warm, Dry
Neuro: AAOx3
Psych: Calm
84M ASCVD diabetes CKDIV Hypothyroidism Rosacea here for PAD critical limb ischemia RLE
PAD
RLE critical limb ischemia
Vascular eval appreciated
Right lower extremity angiogram/angioplasty with stent placement 07/15/2024
cont hep gtt, npo after midnight for bypass as per Vascular
PT eval appreciated home health
Altered mental status intermittent likely secondary to hospital-acquired delirium
Continue frequent reorientation
MRI without findings of acute abnormalities, chronic infarcts noted
New Zyprexa at bedtime ordered, mental status since improved, cont
IgA Gammopathy Unclear Significance/Etiology
Hematology eval appreciated outpatient follow up recommended
CKD stage IV
At this time reluctant about dialysis
Nephro eval appreciated
contrast IVF ppx as per nephro since completed
Hypertension
Continue antihypertensive avoid nephrotoxic agents
Diabetes type 2
sliding scale
Novolog 5U
Lantus 16U
monitor and titrate insulin regimen as necessary
Moderate AAS/MR
Outpatient cardiology follow-up
BPH
Continue Flomax and finasteride
Stage 1 bilateral heel pressure injury
cont local wound care
07/15/24 AOx3 at capacity to make his own decisions. Patient has indicated that, if unable to make his own decisions, he would like his children (sons Leonidas and Tremayne and daughter Neisha) to make his decisions for him.
DVT ppx
DNR
I spent a total of 45 minutes with the patient or on the floor. More than 50% of this time involved counseling and coordination of care.
Anticipated Discharge: 24 - 48 hours
Subjective/Interval History
-
Date of Service: July 17, 2024
no acute distress resting comfortably in bed.
Objective Data
-
Labs:
Laboratory Results
07/16/24 07/17/24
23:54 08:24
WBC 9.4
Hgb 8.5 L
Hct 25.6 L
Plt Count 183
APTT > 200 H* 153.1 H*
Sodium Pending
Potassium Pending
Chloride Pending
Carbon Dioxide Pending
BUN Pending
Creatinine Pending
Glucose Pending
Calcium Pending
Vital Signs:
Vital Signs
Temp Pulse Resp BP Pulse Ox
98.6 F 67 18 156/57 95
07/17/24 07:24 07/17/24 08:05 07/17/24 07:24 07/17/24 08:05 07/17/24 07:24
I&O
07/16/24 07/17/24 07/18/24
06:59 06:59 06:59
Intake Total 1551 / 1551 1542 / 1542
Output Total 1550 / 1550 1200 / 1200
Balance 342 / 342
[2024-07-17 09:15] VITALS: BP 158/61; PULSE 94
[2024-07-17 09:36] VITALS: BP 155/61; PULSE 63; O2SAT 95
--- NOTE | 2024-07-17 10:56 | W.PN.VS ---
Addendum entered and electronically signed by Chase Fay MD 07/17/24 15:26:
Seen and examined with RON Yañez earlier today. Agree with findings as noted below. Patient continues to note pain, though maybe not as much as before we had stented the right external iliac artery. Regardless with his common femoral disease,
profunda occlusion, SFA chronic occlusion and continued pain/callus/tissue loss, I think there is no other option for revascularization. Patient understands all. I discussed with his daughter Neisha over the phone who is very involved with his care.
They are all in agreement with proceeding. They understand fully the risks which we have discussed several times. They also understand that there is no guarantee that this will be doable due to the heavy atherosclerotic nature of his vessels.
And they are aware of risk of amputation without revascularization.
Original Note:
Today's Communication / Plan
-
Patient seen and examined at bedside with Dr. Chase Fay, below plan reviewed with attending.
Assessment/Plan
-
Assessment: 84-year-old male POD #2 Right lower extremity arteriogram with third vessel catheterization of right superficial femoral artery via left common femoral artery puncture, attempted subintimal recanalization of occluded right superficial
femoral artery, balloon angioplasty and stent placement severe right external iliac artery stenosis with 8 mm x 6 cm Cook Zilver PTX self-expanding drug-eluting stent
Plan:
Right lower extremity arterial bypass tomorrow with Dr. Chase Fay 07/18/24
NPO after midnight
Subjective Data
-
Date of Service: July 17, 2024
Patient seen and examined at bedside, reports that although rest pain has improved he is still experiencing continued foot pain that has worsened into today.
Objective Data
-
Vital Signs
Temp Pulse Resp BP Pulse Ox
98.6 F 67 18 156/57 95
07/17/24 07:24 07/17/24 08:05 07/17/24 07:24 07/17/24 08:05 07/17/24 07:24
Intake and Output
07/16/24 07/17/24 07/18/24
06:59 06:59 06:59
Intake Total 1551 / 1551 1542 / 1542
Output Total 1550 / 1550 1200 / 1200
Balance 342 / 342
Intake:
Oral fluids 720 / 720 1440 / 1440
IV fluids (Total) 720 / 720
IV piggybacks 111 / 111 102 / 102
Output:
Urine, [place] 1550 / 1550 1200 / 1200
Lab Results
07/17/24 08:24
Calcium 8.7 mg/dl (8.4-10.2) 07/16/24 08:45
Phosphorus 2.7 mg/dl (2.5-4.5) 07/16/24 08:45
Magnesium 1.6 mg/dl (1.6-2.3) 07/16/24 08:45
Total Bilirubin 0.4 mg/dl (0.2-1.3) 07/08/24 18:34
AST 17 U/L (17-59) 07/08/24 18:34
ALT 15 U/L (0-50) 07/08/24 18:34
Alkaline Phosphatase 59 U/L (38-126) 07/08/24 18:34
Total Protein 6.8 g/dl (6.3-8.2) 07/08/24 18:34
Albumin 3.7 g/dl (3.5-5.0) 07/08/24 18:34
Physical Exam
-
No apparent distress, resting in bed comfortably
No tachycardia
No dyspnea on room air
ABD flat, nontender, nondistended
Bilateral feet warm
--- NOTE | 2024-07-17 11:26 | CON.ONC ---
Consultation
-
Date Consultation Requested: 07/17/24
Date Consultation Performed: 07/17/24
Requesting Provider: Addy
Performing Provider: Savanna
Reason for Consultation: IgA MGUS
Impression
Impression
IgA MGUS
PAD
RLE critical limb ischemia
CKD stage IV
Hypertension
Diabetes type 2
Smoker
Plan
Plan
Labs reviewed.
Doubt Myeloma.
SFLC ratio relatively equal. Elevated from acute phase reactant.
Outpt F/U post discharge. Scheduled for surgery for critical limb ischemia which is most active issue at this time.
Patient History
History of Present Illness
Evaluate for IgA Myeloma
HPI: 84y M with PMH significant for ASCVD, DM-II and CKD IV who presents to ED for evaluation of PAD / LE pain caused by severe PVD. For right lower extremity arterial bypass tomorrow with Dr. Chase Fay 07/18/24. Found to have a IgA MGUS. Asked
to evaluate for myeloma.
Past-Medical/Surgical History
PMH:
ASCVD (CAD, Carotid Disease, PAD, TIA)
Hypertension
DM-II
CKD IV
Hypothyroidism
BPH
NAFLD
Anemia of CKD
Rosacea
Nephrolithiasis
Past Surgical History: Reports Other
Additional Past Surgical History:
PTCA with Stent
Left SFA Stent
Left Carotid Stent
Right CEA
Cystoscopy / Stent
Bilateral Inguinal Herniorrhaphy
Social History
Tobacco: Smoker
Alcohol: None
Drug: None
Family History
Family History: Not pertinent
Patient Medication
�Medication �Instructions �Recorded �Confirmed �Last Taken �Type
ezetimibe 10 mg tablet 10 mg PO DAILY High cholesterol 11/24/16 07/09/24 11/23/20 History
nitroglycerin 0.4 mg sublingual 0.4 mg sublingual [id number] PRN 11/25/16 07/09/24 Unknown Rx
tablet chest pain ##25
amlodipine 10 mg tablet 10 mg PO QPM Blood pressure 11/13/20 07/09/24 01/05/21 History
cholecalciferol (vitamin D3) 25 1,000 units PO DAILY Supplement 11/13/20 07/09/24 11/23/20 History
mcg (1,000 unit) tablet
isosorbide mononitrate 30 mg 30 mg PO DAILY Blood pressure 11/13/20 07/09/24 11/23/20 History
tablet,extended release 24 hr
metoprolol tartrate 25 mg tablet 50 mg PO BID Blood pressure 11/13/20 07/09/24 01/05/21 History
acetaminophen 325 mg tablet 650 mg PO Q6HPRN PRN mild pain 07/09/24 07/09/24 Unknown History
(Tylenol)
aspirin 81 mg chewable tablet 81 mg PO DAILY Blood Clot 07/09/24 07/09/24 Unknown History
Prevention/Tx
finasteride 5 mg tablet 5 mg PO QPM BPH 07/09/24 07/09/24 Unknown History
insulin glargine 100 unit/mL (3 16 unit SC HS Diabetes 07/09/24 07/09/24 Unknown History
mL) subcutaneous pen (Lantus
Solostar U-100 Insulin)
nateglinide 120 mg tablet 120 mg PO AC Diabetes 07/09/24 07/09/24 Unknown History
silodosin 8 mg capsule 8 mg PO QPM BPH 07/09/24 07/09/24 Unknown History
sodium bicarbonate 650 mg tablet 1,300 mg PO BID ALKALINIZING AGENT 07/09/24 07/09/24 Unknown History
Active Medications
Generic Name Dose Route Start Last Admin
Trade Name Freq PRN Reason Stop Dose Admin
Acetaminophen 650 mg 07/09/24 03:08 07/16/24 21:55
Acetaminophen 325 Mg Tablet PO 08/06/24 03:07 650 mg
Q4HPRN PRN Administration
Mild Pain / Temp > 101
Amlodipine Besylate 10 mg 07/09/24 08:00 07/17/24 08:05
Amlodipine 10 Mg Tablet PO 08/06/24 07:59 10 mg
DAILY BURT Administration
Aspirin 81 mg 07/09/24 08:00 07/17/24 08:05
Aspirin 81 Mg Chewable Tablet PO 08/06/24 07:59 81 mg
DAILY BURT Administration
Cholecalciferol 25 mcg 07/09/24 08:00 07/17/24 08:05
Cholecalciferol (Vitamin D3) 25 Mcg Tablet (1,000 Units) PO 08/06/24 07:59 25 mcg
DAILY BURT Administration
Clopidogrel Bisulfate 75 mg 07/16/24 08:00 07/17/24 08:06
Clopidogrel 75 Mg Tablet PO 08/13/24 07:59 75 mg
DAILY BURT Administration
Dextrose 12.5 grams 07/09/24 03:08
Dextrose 50% (0.5 Grams/Ml) 50 Ml Syringe IV 08/06/24 03:07
[id number] PRN
hypoglycemia
Protocol
Doxycycline Hyclate 100 mg 07/14/24 20:00 07/17/24 08:05
Doxycycline 100 Mg Capsule PO 100 mg
Q12 BURT Administration
Finasteride 5 mg 07/09/24 08:00 07/17/24 08:05
Finasteride 5 Mg Tablet PO 08/06/24 07:59 5 mg
DAILY BURT Administration
Glucagon 1 mg 07/09/24 03:08
Glucagon 1 Mg Vial IM 08/06/24 03:07
PRN PRN
hypoglycemia
Protocol
Heparin Sodium 5,100 units 07/15/24 19:58
Heparin 80 Units/Kg Rebolus-Do Not Discard IV 08/12/24 19:57
PRN PRN
PTT < OR = 64 seconds
Heparin Sodium 2,500 units 07/15/24 19:59
Heparin 40 Units/Kg Rebolus-Do Not Discard IV 08/12/24 19:58
PRN PRN
PTT = 64.1 to 72.9 seconds
Insulin Glargine 16 units/ 0.16 mls @ 0 mls/hr 07/09/24 22:00 07/16/24 21:49
Device SC 08/06/24 21:59 0.16 mls
HS BURT Administration
As Directed
Heparin Sodium 25,000 units in 250 mls @ 0 mls/hr 07/15/24 20:00 07/16/24 19:12
Heparin 19430 Units/250 Ml IV 250 mls
PER PROTOCOL BURT Administration
Protocol
Per Protocol
Insulin Aspart 0 units 07/16/24 07:30 07/17/24 07:53
Insulin Aspart Low Resistance 300 Units/3 Ml Pen.Injctr SC 08/13/24 07:29 Not Given
AC BURT
Protocol
Insulin Aspart 5 units 07/17/24 07:30 07/17/24 09:09
Insulin Aspart (100 Units/Ml) 3 Ml Flexpen SC 08/14/24 07:29 5 units
AC BURT Administration
Isosorbide Mononitrate 30 mg 07/09/24 08:00 07/17/24 08:05
Isosorbide Mononitrate 30 Mg Extended Release Tablet PO 08/06/24 07:59 30 mg
DAILY BURT Administration
Metoprolol Tartrate 50 mg 07/09/24 08:00 07/17/24 08:05
Metoprolol 50 Mg Regular Release Tablet PO 08/06/24 07:59 50 mg
BID BURT Administration
Olanzapine 2.5 mg 07/12/24 22:00 07/16/24 21:49
Olanzapine 2.5 Mg Tablet PO 08/09/24 21:59 2.5 mg
HS BURT Administration
Ondansetron HCl 4 mg 07/09/24 09:15 07/09/24 09:34
Ondansetron 4 Mg/2 Ml Vial IV 08/06/24 09:14 4 mg
Q6HPRN PRN Administration
NAUSEA/VOMITING
Pantoprazole Sodium 40 mg 07/15/24 19:25 07/17/24 08:05
Pantoprazole 40 Mg Delayed Release Tablet PO 08/12/24 19:24 40 mg
DAILY BURT Administration
Sodium Bicarbonate 1,300 mg 07/09/24 08:00 07/17/24 08:05
Sodium Bicarbonate 650 Mg Tablet PO 08/06/24 07:59 1,300 mg
BID BURT Administration
Sodium Chloride 0 flush 07/09/24 04:00
Sodium Chloride 0.9% (Flush) Syringe IV 08/06/24 03:59
PER PROTOCOL BURT
Tamsulosin HCl 0.4 mg 07/13/24 20:00 07/17/24 08:05
Tamsulosin 0.4 Mg Capsule PO 08/10/24 19:59 0.4 mg
BID BURT Administration
Physical Exam
-
General: No Apparent Distress and Comfortable
HEENT: Negative Jaundice
Cardiology: S1 and S2
Pulmonary: Clear
GI: Soft
Extremities: Negative Edema
Labs
Lab Results
WBC 9.4 10^3/uL (4.8-10.8) 07/17/24 08:24
RBC 2.79 10^6/uL (4.70-6.10) L 07/17/24 08:24
Hgb 8.5 g/dL (13.0-18.0) L 07/17/24 08:24
Hct 25.6 % (39.0-52.0) L 07/17/24 08:24
MCV 91.8 fL (80.0-94.0) 07/17/24 08:24
MCH 30.5 pg (27.0-31.0) 07/17/24 08:24
MCHC 33.2 g/dL (33.0-37.0) 07/17/24 08:24
RDW 15.0 % (11.5-14.5) H 07/17/24 08:24
Plt Count 183 10^3/uL (130-400) 07/17/24 08:24
MPV 12.1 fL (7.4-10.4) H 07/17/24 08:24
Abs Immat Gran (auto) 0.0 10^3/uL (0-0.05) 07/08/24 18:34
Absolute Neuts (auto) 4.9 10^3/uL (1.4-6.5) 07/08/24 18:34
Absolute Lymphs (auto) 1.8 10^3/uL (1.2-3.4) 07/08/24 18:34
Absolute Monos (auto) 0.7 10^3/uL (0.1-0.6) H 07/08/24 18:34
Absolute Eos (auto) 0.1 10^3/uL (0-0.7) 07/08/24 18:34
Absolute Basos (auto) 0.1 10^3/uL (0-0.2) 07/08/24 18:34
Immature Gran % 0.3 % (0-0.5) 07/08/24 18:34
Neutrophils % 64.8 % (42.2-75.2) 07/08/24 18:34
Lymphocytes % 23.4 % (20.5-51.1) 07/08/24 18:34
Monocytes % 8.8 % (1.7-9.3) 07/08/24 18:34
Eosinophils % 1.9 % (0-6) 07/08/24 18:34
Basophils % 0.8 % (0-2) 07/08/24 18:34
Creatinine 2.1 mg/dL (0.7-1.3) H 07/16/24 08:45
Laboratory Tests
07/11/24
06:44
IgG 828
IgA 636 H
IgM 88
Free Murdo LC, Quant 109.57 H
Free Lambda LC, Quant 48.04 H
Free Murdo/Lambda Ratio 2.28 H
Vital Signs
Vital Signs
Temp Pulse Resp BP Pulse Ox
98.6 F 67 18 156/57 95
07/17/24 07:24 07/17/24 08:05 07/17/24 07:24 07/17/24 08:05 07/17/24 07:24
[2024-07-17 11:29] LABS: Blood Urea Nitrogen 30 mg/dl (9-20); Calcium 9.1 mg/dl (8.4-10.2); Carbon Dioxide 23 mmol/L (22-30); Chloride 113 mmol/L (98-107); Estimated Creatinine Clearance 25 ml/min; Glucose 120 mg/dl (70-99); Magnesium 1.6 mg/dl (1.6-2.3); Phosphorus 2.8 mg/dl (2.5-4.5); Potassium 3.9 mmol/L (3.5-5.1); Sodium 141 mmol/L (135-145); eGFR 30.85
[2024-07-17 11:37] LABS: Glucose - Point of Care 198 mg/dl (70-99)
--- NOTE | 2024-07-17 12:16 | W.PN.NEPH.PH ---
Today's Communication / Plan
-
follow BMP
Assessment/Plan
-
Assessment
CKD 4 (2.0)
Peripheral arterial disease
Hypertension
Diabetes mellitus type 2
Tobacco use
Moderate , MR
Right leg pain
Plan
follow BMP
creatinine stable at 2.1 status post a gram on 07/15/2024, non oliguric
eventual voiding trial
Maintain escalated flomax dosage
for RLE bypass 07/18
-
-
Date of Service: July 17, 2024
CC / HPI / ROS
-
Chief Complaint:
PAD
History of Present Illness:
CKD stage IV with a PAD ischemic limb potential requiring vascular intervention
DONALD/Cr stable at 2.1
BP stable
hinton in place for retention
Review of Systems:.
No chest pain or shortness of breath
awake
Lower extremity claudication improving following a gram PCI of iliac crest
Labs
-
Labs:
WBC 9.4 10^3/uL (4.8-10.8) 07/17/24 08:24
RBC 2.79 10^6/uL (4.70-6.10) L 07/17/24 08:24
Hgb 8.5 g/dL (13.0-18.0) L 07/17/24 08:24
Hct 25.6 % (39.0-52.0) L 07/17/24 08:24
Plt Count 183 10^3/uL (130-400) 07/17/24 08:24
Sodium 141 mmol/L (135-145) 07/17/24 08:24
Potassium 3.9 mmol/L (3.5-5.1) 07/17/24 08:24
Chloride 113 mmol/L (98-107) H 07/17/24 08:24
Carbon Dioxide 23 mmol/L (22-30) 07/17/24 08:24
BUN 30 mg/dl (9-20) H 07/17/24 08:24
Creatinine 2.1 mg/dL (0.7-1.3) H 07/17/24 08:24
eGFR 30.85 07/17/24 08:24
Glucose 120 mg/dl (70-99) H 07/17/24 08:24
Calcium 9.1 mg/dl (8.4-10.2) 07/17/24 08:24
Phosphorus 2.8 mg/dl (2.5-4.5) 07/17/24 08:24
Albumin 3.7 g/dl (3.5-5.0) 07/08/24 18:34
Physical Exam
-
Vital Signs:
Vital Signs
Temp Pulse Resp BP Pulse Ox
98.6 F 67 18 156/57 95
07/17/24 07:24 07/17/24 08:05 07/17/24 07:24 07/17/24 08:05 07/17/24 07:24
Cardiovascular:: Regular rate and rhythm
Respiratory:: Bilateral: CTA
Lung Excursion:: Normal
Abdomen:: Nontender and Soft
Bowel Sounds:: Normal
Extremity Edema:: None: Bilateral:
--- NOTE | 2024-07-17 12:53 | CM ---
CM reviewed chart, patients son, Tremayne, and daughter, Neisha, requesting to speak to CM, met with patients son Tremayne in family waiting room, daughter Neisha via phone. Neisha reports she initially thought she would be able to care for patient for when
patient discharged, now after visiting patient for several days, feel as though she cannot provide care patient needs. Daughter/son requesting patient discharge to SNF and will then look into assisted living for patient. CM discussed PT/OT will
likely evaluate patient today- patient will need authorization approval for SNF. Patient for right lower extremity arterial bypass tomorrow 07/18/24.
Family provided POA paperwork, placed on chart. Tremayne and Neisha requesting that after patients sonLeonidas, visits today, they would like Leonidas off contact/information.
Plan; SNF when medically stable, will require insurance auth
[2024-07-17] MEDS: NOVOLOG FLEXPEN-LOW RESISTANCE 1 UNITS SC (13:36)
[2024-07-17 15:03] VITALS: BP 136/40
[2024-07-17 16:24] LABS: Glucose - Point of Care 141 mg/dl (70-99)
[2024-07-17] MEDS: TYLENOL 650 MG PO (16:38)
[2024-07-17 16:57] LABS: APTT 88.7 Sec (23.4-35.0)
[2024-07-17] MEDS: ZYPREXA 2.5 MG PO (21:04)
[2024-07-17 21:07] LABS: Glucose - Point of Care 195 mg/dl (70-99)
[2024-07-17] MEDS: LANTUS 0.16 UNITS SC (21:07)
[2024-07-17 23:12] VITALS: BP 142/50
[2024-07-17 23:28] LABS: APTT 139.7 Sec (23.4-35.0)
[2024-07-18] VITALS (16 sets, daily range): BP systolic 77–153; BP diastolic 43–62; BMI 22.6; BMI 21.3
[2024-07-18] MEDS: HEPARIN 25000 UNITS/250 ML IV (04:09)
[2024-07-18] MEDS: TYLENOL 650 MG PO (05:32)
[2024-07-18] MEDS: PERIDEX 0.12% ORAL RINSE 15 ML PO ×2 (05:33→11:27)
[2024-07-18] MEDS: BACTROBAN 2% OINTMENT 1 APPLIC NASAL ×2 (05:33→11:27)
[2024-07-18 05:41] LABS: Glucose - Point of Care 132 mg/dl (70-99)
[2024-07-18] MEDS: NOVOLOG FLEXPEN SC ×3 (05:43→18:46)
[2024-07-18 07:24] LABS: Hematocrit 25.8 % (39.0-52.0); Hemoglobin 8.6 g/dL (13.0-18.0); Mean Corp Hgb Conc. 33.3 g/dL (33.0-37.0); Mean Corpuscular Hgb 30.4 pg (27.0-31.0); Mean Corpuscular Volume 91.2 fL (80.0-94.0); Mean Platelet Volume 12.5 fL (7.4-10.4); Platelet Count 187 10^3/uL (130-400); Red Blood Cell Count 2.83 10^6/uL (4.70-6.10); Red Cell Dist. Width 15.2 % (11.5-14.5); White Blood Cell Count 8.5 10^3/uL (4.8-10.8)
[2024-07-18 07:45] LABS: APTT 83.8 Sec (23.4-35.0)
[2024-07-18 08:01] LABS: Blood Urea Nitrogen 36 mg/dl (9-20); Carbon Dioxide 28 mmol/L (22-30); Chloride 111 mmol/L (98-107); Estimated Creatinine Clearance 23 ml/min; Glucose 119 mg/dl (70-99); Magnesium 1.5 mg/dl (1.6-2.3); Phosphorus 2.8 mg/dl (2.5-4.5); Sodium 142 mmol/L (135-145); eGFR 27.66
--- NOTE | 2024-07-18 08:25 | W.PN.HOSP.TC ---
Today's Communication/Plan
-
cont post-op care as per Vascular
ICU monitoring
hold antihypertensives while on pressor support
wean off pressor as tolerated
pain control
Assessment / Plan
Assessment / Plan
Physical Exam
General: NAD
HEENT: Scleral Anicteric MMM No JVD
Pulm: CTABL
Cardio: RRR, S1/S2, II/ systolic murmur
Abd: Soft, NT, ND, BS+
Ext: RLE dressing clean dry intact
Neuro: Lethargic but arousable
Psych: Calm
84M ASCVD diabetes CKDIV Hypothyroidism Rosacea here for PAD critical limb ischemia RLE
PAD
RLE critical limb ischemia
Vascular eval appreciated
Right lower extremity angiogram/angioplasty with stent placement 07/15/2024
RLE bypass 07/18/24 subsequently transferred to ICU for post-op care requiring pressor support
Altered mental status intermittent likely secondary to hospital-acquired delirium
Continue frequent reorientation
MRI without findings of acute abnormalities, chronic infarcts noted
New Zyprexa at bedtime ordered, mental status since improved, cont
IgA Gammopathy Unclear Significance/Etiology
Hematology eval appreciated outpatient follow up recommended
CKD stage IV
At this time reluctant about dialysis
Nephro eval appreciated
contrast IVF ppx as per nephro since completed
Hypertension
hold Amlodipine Metoprolol while on pressor post-op
Diabetes type 2
sliding scale
Novolog 5U
Lantus 16U
monitor and titrate insulin regimen as necessary
Moderate AAS/MR
Outpatient cardiology follow-up
BPH
Continue Flomax and finasteride
Flomax dose increased as per Nephro
Stage 1 bilateral heel pressure injury
cont local wound care
07/15/24 AOx3 at capacity to make his own decisions. Patient has indicated that, if unable to make his own decisions, he would like his children (sons Leonidas and Tremayne and daughter Neisha) to make his decisions for him.
DVT ppx
DNR
Discussed with daughter Neisha and Son-in-law at bedside
I spent a total of 50 minutes with the patient or on the floor. More than 50% of this time involved counseling and coordination of care.
Anticipated Discharge: > 48 hours
Subjective/Interval History
-
Date of Service: July 18, 2024
no acute distress, resting comfortably in bed, lethargic but arousable. s/p RLE bypass.
Objective Data
-
Labs:
Laboratory Results
07/17/24 07/18/24
23:04 06:30
WBC 8.5
Hgb 8.6 L
Hct 25.8 L
Plt Count 187
APTT 139.7 H 83.8 H
Sodium 142
Potassium 4.0
Chloride 111 H
Carbon Dioxide 28
BUN 36 H
Creatinine 2.3 H
Glucose 119 H
Calcium 9.0
Vital Signs:
Vital Signs
Temp Pulse Resp BP Pulse Ox
97.4 F 67 18 142/50 97
07/17/24 23:12 07/17/24 23:12 07/17/24 23:12 07/17/24 23:12 07/17/24 23:12
I&O
07/17/24 07/18/24 07/19/24
06:59 06:59 06:59
Intake Total 1542 / 1542 1979 / 1979
Output Total 1200 / 1200 2300 / 2300
Balance 342 / 342 -320 / -320
--- NOTE | 2024-07-18 08:44 | W.PN.ONC2 ---
Today's Communication / Plan
-
No further inpatient hematology recommendations. Hematology will sign off, please reach out for any further questions or concerns.
Impression
Impression
IgA MGUS. Serum FLC with elevated kappa and lambda with ration ~2. Likely elevated 2/2 acute phase reactant and renal insuff
Anemia. suspect component of AOCKD & inflammation. no folate or B12 deficiency.
PAD
RLE critical limb ischemia
CKD stage IV
chronic CVA
Hypertension
Diabetes type 2
Smoker
Moderate , MR
Plan
Plan
check iron studies,retic
smoking cessation
recommended OP follow up with hematology to repeat SPEP, FLC with in 3-6 months.
RLE bypass 07/18 for critical limb ischemia which is most active issue at this time.
Daughter at bedside, question answered and updates provided
Subjective/Objective
Subjective
no new complaints
lower extremity pain persists
Vital Signs:
Vital Signs
Temp Pulse Resp BP Pulse Ox
97.4 F 67 18 142/50 97
07/17/24 23:12 07/17/24 23:12 07/17/24 23:12 07/17/24 23:12 07/17/24 23:12
Lab Results:
Laboratory Data
WBC 8.5 10^3/uL (4.8-10.8) 07/18/24 06:30
Hgb 8.6 g/dL (13.0-18.0) L 07/18/24 06:30
Plt Count 187 10^3/uL (130-400) 07/18/24 06:30
APTT 83.8 Sec (23.4-35.0) H 07/18/24 06:30
eGFR 27.66 07/18/24 06:30
Physical Exam
General: No Apparent Distress and Comfortable
HEENT: Negative Jaundice
Cardiology: S1 and S2
Pulmonary: Clear
GI: Soft
Extremities: Negative Edema
[2024-07-18] MEDS: VIBRAMYCIN 100 MG PO ×2 (09:27→21:25)
[2024-07-18] MEDS: IMDUR (EXTENDED RELEASE) 30 MG PO (09:28)
[2024-07-18] MEDS: SODIUM BICARBONATE 1300 MG PO ×2 (09:28→21:25)
[2024-07-18] MEDS: PLAVIX 75 MG PO (09:28)
[2024-07-18] MEDS: PROTONIX 40 MG PO (09:28)
[2024-07-18] MEDS: NORVASC 10 MG PO (09:29)
[2024-07-18] MEDS: FLOMAX 0.4 MG PO ×2 (09:29→21:25)
[2024-07-18] MEDS: LOPRESSOR 50 MG PO (09:30)
[2024-07-18] MEDS: PROSCAR 5 MG PO (09:32)
[2024-07-18] MEDS: VITAMIN D3 (cholecalciferol) 25 MCG PO (09:33)
[2024-07-18] MEDS: LOW STRENGTH ASPIRIN 81 MG PO (09:33)
[2024-07-18 09:42] LABS: Reticulocyte Count 1.3 % (0.4-2.8)
[2024-07-18 11:17] LABS: Glucose - Point of Care 113 mg/dl (70-99)
[2024-07-18 14:09] LABS: Glucose - Point of Care 113 mg/dl (70-99)
[2024-07-18 15:12] LABS: Troponin I 0.023 ng/ml
--- NOTE | 2024-07-18 16:28 | W.SUR.POST ---
Surgical Immediate Post Op
Note
Pre Op Diagnosis: PAD
Post Op Diagnosis: same
Procedure Performed: Right lower extremity arterial bypass with saphenous vein graft
Primary Surgeon: Chase Fay M.D.
Assist: Robb GONZALEZ
Anesthesia: General
Estimated Blood Loss: 50 cc
Fluids: See anesthesia flowsheet
Drains/Shunts: None
Specimens/Cultures: Femoral plaque
Doppler/Duplex/Angio (Y/N): Y
Complications: None
Operative Findings: Doppler PT
[2024-07-18 16:45] LABS: Glucose - Point of Care 189 mg/dl (70-99)
[2024-07-18] MEDS: SUBLIMAZE 50 MCG IV (17:07)
--- NOTE | 2024-07-18 17:17 | OR.RPT ---
Operative Report
Operative Report
PROCEDURE DATE: 07/18/2024
Preoperative diagnosis: Chronic limb threatening ischemia right lower extremity.
Postoperative diagnosis: Same
Procedure:
1. Right femoral endarterectomy/profundoplasty with saphenous vein patch angioplasty.
2. Right femoral to below the knee popliteal artery bypass with reversed ipsilateral greater saphenous vein conduit.
Surgeon: Sumeet
Production Utility Worker: RON Zamudio, required for all aspects of procedure including assistance with traction/countertraction, following a suture line, assistance with closure.
Complications: None
Anesthesia: General
Indications for procedure:
Chronic limb threatening ischemia with small wound that was very painful and ischemic rest pain right foot. We/benefits/alternatives of revascularization were also discussed. We have attempted endovascular therapy, but unable to reenter chronic
occlusion of the SFA. 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 We had extensively discussed limitations therefore in terms of ability to adequately revascularized. Saphenous vein
conduit was reasonable size but was varicose and some areas with varicose branches. We discussed the potential need for prosthetic as well. Extensive discussions were undertaken. Risk/benefits/alternatives were all fully discussed with the
patient as well as his family. They understood all wished to proceed.
Description of procedure:
Patient was identified brought to the operating room placed on the table in supine position. After the adequate administration of anesthesia he was prepped and draped in the standard surgical fashion. A standard preoperative timeout was undertaken
and everybody was in agreement the plan. A longitudinal incision was made in the right groin that was carried through skin subcutaneous tissue. Any lymphatic tissues were ligated between silk ties and divided. I dissected down to the level of the
inguinal ligament and then identify the common femoral artery as the emergency room underneath inguinal ligament. It was noted to be fairly calcified but there was 1 spot about a centimeter below the inguinal ligament where it was slightly softer
anteriorly. The artery was somewhat encased in a rind. I had to carefully dissect the entirety of the artery down to the bifurcation and the SFA. The SFA was then proximally circumferentially dissected and the vessel loop passed around it. Now I
dissected back to the origin of the profunda. Based on CT scan imaging the profunda opened up at the branch point. Therefore I carefully dissected the profunda down to the first branch point. Any crossing veins were ligated between silk ties and
then divided. I then circumferentially controlled both branches with Vesseloops. However there was still some calcified plaque noted. Therefore I dissected slightly further down the main profunda I had to ligate a crossing vein branch in doing so
and then divided. Then I was able to get to a softer point. Now I dissected underneath the inguinal ligament. The distal external iliac artery was carefully dissected just under the ligament and was noted to be slightly softer in 1 spot there. I
had limited mobilization and the tissues were very stuck/tight. Proved to be a very challenging dissection but I was able to circumferentially dissect the distal external iliac artery was somewhat soft and clamp removed. A vessel loop was passed
around it.
At this point I elected to expose the greater saphenous vein initially at 1 point where it ultrasounded and it looked to be varicose. This was in the proximal thigh. A separate incision was made overlying this parminder. This was carried through skin
subcutaneous tissue. The greater saphenous vein was identified. The varicose branch was noted. While it was slightly [place] I was able to easily ligated on either side and then divided to allow mobilization of the greater saphenous vein. The
vein otherwise looked reasonable and this healed. Therefore I made the decision to continue with planned vein bypass rather than prosthetic. \\
Therefore now I turned my attention to expose the distal target. (Below-knee popliteal artery). I therefore made a longitudinal incision in the medial right calf about 1 fingerbreadth inferior to the tibia. This was carried through skin
subcutaneous tissue. Identify the greater saphenous vein here and carefully dissected and mobilized it out of the way. Any branches were ligated between silk ties and divided. It was mildly thin-walled but reasonable. Once I did this, I then
dissected through the crural fascia layer with the electrocautery. I now reflected the gastrocnemius muscle posteriorly and in the loose areolar fatty tissue identified the popliteal vein and then reflected that posteriorly and identified the
popliteal artery. There was noted to be a small artery, but was soft actually. I circumferentially dissected it proximally distally. Passed a vessel loop around it proximally distally. It was a reasonable target that was small.
At this point I then turned my attention to complete dissection of the greater saphenous vein. As noted I dissected it more proximally in the thigh and in the field below the knee. Now I connected the dots by making skip incisions and mobilizing
the entirety of the greater saphenous vein. Any branches were ligated between silk ties and divided. There was 1 area that was particularly varicose and had varicose branches which was in the vicinity of the knee. All these branches were ligated
between silk ties and divided. The vein wall was slightly thinned here in dilated, but I felt it was usable. In addition given his comorbidities and his [place] arteries, I felt that if we could use a vein conduit this would be ideal. Once I
mobilized a suitable length, distally I ligated the vein with a silk tie and a heavy clip. I then transected. Proximally I used a silk suture ligature and a clip to ligate the vein proximally and then transected just distal to that site. I
distended the vein under heparinized saline and distended well.
I now created an anatomic tunnel using a Brian tunneler. Once I did this I gave the patient an appropriate dose of heparin 5000 units. After this had circulated, I clamped the profunda and any other vessel loops or branches that I had double
looped I now tightened. The SFA vessel loop was also double looped and tightened. I now placed a Derra clamp on the distal external iliac artery. An arteriotomy was made at the softer spot on the common femoral artery. There was a moderate
amount of plaque in that vicinity especially posteriorly however. I carried this arteriotomy onto the profunda. 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 I now used a [place] to create an endarterectomy
plane. I had carried my arteriotomy down to the distal profunda that it exposed in the profunda was more reasonable here although there was still some mild plaque. The endarterectomy of the bulky plaque from the profunda feathered out nicely
distally. I inspected my endpoint there and removed any fine debris with fine forceps. A nice ring of intima that was adherent on the distal profunda. At this point I was satisfied distally. I grasped the plaque now and I continued my
endarterectomy back to the proximal common femoral artery. I then circumferentially endarterectomized the plaque, grasping it and then teasing it out up to the level of my clamp, temporary releasing the clamp to allow the plaque to completely tease
out. I could inspect my endpoint at the clamp and it appeared nice and any loose intima was then removed with fine forceps. Now I grasped the additional plaque at the origin of the SFA and everted this out so as to your plaque at the origin the
SFA to create a nice sewing ring. Now I removed any fine debris throughout the endarterectomy bed with fine forceps. I irrigated heparinized saline. I then had elected to reverse the vein (I wish not to use a valvulotome given slight thinning of
the vein in certain areas), and therefore I transected the small portion of the to be distal aspect of the vein (the more central saphenous vein). I used this piece of vein now as a vein patch once I filleted it. This was sewn into place using a
running 6-0 Prolene suture. Prior to completing and tying down my suture line I backbled the [place] arteries and then irrigated heparinized saline and completed and tied on the suture line. Next I released my clamps. A couple 6-0 Prolene sutures
[id number] were placed along any bleeding sites on the suture line. Hemostasis was then achieved. I replaced the clamps. I then made a venotomy on the patch with an 11 blade and extended slightly using a Wheeler scissor. I then spatulated the
vein (again maintaining a reversed orientation), and then sewed an end-to-side anastomosis between the vein patch and the saphenous vein conduit. This was done with a running 6-0 Prolene suture. I completed and tied a my suture line. I then
released the [place] artery flow placing a bulldog clamp on the vein graft. There is excellent pulsatile flow through the vein graft. Small sidebranch bleeder was noted on the vein graft which was easily ligated. The aneurysmal area of the vein
looked okay, and in fact I tried to imbricate the healthier edges using 6-0 Prolene interrupted suture to mitigate the aneurysmal degeneration, but there was another area that was slightly aneurysmal adjacent to it. However overall it looked
reasonable. The anterior surface of the vein was marked under distention to avoid any kinking or twisting and the vein was passed through the tunnel. The vein graft was then clamped proximally in the groin.
I now reexposed the balloon to the knee popliteal artery. The popliteal artery was clamped proximally distally. An arteriotomy was made with 11 blade and extended using a Wheeler scissor. The vein graft was then trimmed and spatulated. An
end-to-side anastomosis was fashioned between the distal vein graft and the popliteal artery below the knee using a running 6-0 Prolene suture. Prior to completing and tying down the suture line I backbled the [place] arteries, and I flushed out the
graft. I then completed and tied down my suture line. Next I released my clamps on the popliteal artery, and released my clamp on the vein graft. There is now excellent pulsatile flow into the popliteal artery. There is an excellent graft
dependent Doppler signal in the popliteal artery beyond the anastomosis. There is an excellent significantly graft augmented Doppler signal at the posterior tibial artery at the ankle. At this point is very satisfied.
We now meticulously achieved hemostasis throughout our incision sites. Protamine was given to reverse the heparin. We then confirmed hemostasis and then irrigated. The arterial exposure incision sites were closed with 2-0 Vicryl followed by 3-0
Vicryl running suture followed by skin clips. The saphenectomy sites were then closed with 3-0 Vicryl followed by skin clips. Dressings were applied. The patient tolerated procedure well. All sponge, needle, instrument counts were correct at the
end of the case. The patient was taken to the recovery room in stable condition.
[2024-07-18 17:22] LABS: Hematocrit 24.9 % (39.0-52.0); Hemoglobin 8.2 g/dL (13.0-18.0); Mean Corp Hgb Conc. 32.9 g/dL (33.0-37.0); Mean Corpuscular Volume 91.2 fL (80.0-94.0); Mean Platelet Volume 11.5 fL (7.4-10.4); Platelet Count 168 10^3/uL (130-400); Red Blood Cell Count 2.73 10^6/uL (4.70-6.10); Red Cell Dist. Width 15.9 % (11.5-14.5); White Blood Cell Count 10.7 10^3/uL (4.8-10.8)
[2024-07-18 17:32] LABS: APTT 34.3 Sec (23.4-35.0); INR 1.15
[2024-07-18 17:33] LABS: Blood Urea Nitrogen 30 mg/dl (9-20); Calcium 7.9 mg/dl (8.4-10.2); Carbon Dioxide 20 mmol/L (22-30); Chloride 113 mmol/L (98-107); Estimated Creatinine Clearance 25 ml/min; Glucose 190 mg/dl (70-99); Potassium 4.1 mmol/L (3.5-5.1); Sodium 142 mmol/L (135-145); eGFR 30.85
[2024-07-18] MEDS: LEVOPHED 250 IV (17:34)
[2024-07-18 17:44] LABS: Troponin I 0.019 ng/ml
--- NOTE | 2024-07-18 19:20 | PTCARENOTE ---
18:15 arrived from PACU. via bed.
Status Post D(0)
1. Right femoral endarterectomy/profundoplasty with saphenous vein patch angioplasty.
2. Right femoral to below the knee popliteal artery bypass with reversed ipsilateral greater saphenous vein conduit.
Left radial A/line Zero per protocol .
Levophed at 5mcg with Goal MAP >65 Current MAP 77 Levophed decreased to 4mcg.
Patient drowsy, AAO x3
Normal Sinus Rhythm 77
Dorsalis Pedis and post Tibia pules preset to Doppler No edema RT LE wrapped with CHANTELLE Wrap
Boudreaux (been told in a report Boudreaux was placed during this hospitalization for retention, was exchanged in OR ) draining marcos urine
Abdomen soft non tender
[2024-07-18] MEDS: NSS 1000 IV (19:30)
[2024-07-18] MEDS: ZOFRAN 4 MG IV (21:24)
[2024-07-18] MEDS: DILAUDID 0.5 MG IV (21:24)
[2024-07-18] MEDS: ZYPREXA 2.5 MG PO (21:25)
[2024-07-18] MEDS: LANTUS 0.16 UNITS SC (21:25)
[2024-07-18] MEDS: LOPRESSOR PO (21:25)
--- NOTE | 2024-07-18 21:57 | W.PN.NEPH.PH ---
Today's Communication / Plan
-
follow BMP
Assessment/Plan
-
Assessment
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
Peripheral arterial disease
Hypertension
Diabetes mellitus type 2
Tobacco use
Moderate , MR
Right leg pain, RLE bypass 07/18
Plan
follow BMP
eventual voiding trial
Maintain escalated flomax dosage
-
-
Date of Service: July 18, 2024
CC / HPI / ROS
-
Chief Complaint:
PAD
History of Present Illness:
CKD stage IV with a PAD ischemic limb potential requiring vascular intervention
DONALD/Cr up at 2.4 today
s/p RLE bypass
BP stable
hinton in place for retention
Review of Systems:.
sleeping postop
Labs
-
Labs:
WBC 10.7 10^3/uL (4.8-10.8) 07/18/24 17:06
RBC 2.73 10^6/uL (4.70-6.10) L 07/18/24 17:06
Hgb 8.2 g/dL (13.0-18.0) L 07/18/24 17:06
Hct 24.9 % (39.0-52.0) L 07/18/24 17:06
Plt Count 168 10^3/uL (130-400) 07/18/24 17:06
Sodium 142 mmol/L (135-145) 07/18/24 17:06
Potassium 4.1 mmol/L (3.5-5.1) 07/18/24 17:06
Chloride 113 mmol/L (98-107) H 07/18/24 17:06
Carbon Dioxide 20 mmol/L (22-30) L 07/18/24 17:06
BUN 30 mg/dl (9-20) H 07/18/24 17:06
Creatinine 2.1 mg/dL (0.7-1.3) H 07/18/24 17:06
eGFR 30.85 07/18/24 17:06
Glucose 190 mg/dl (70-99) H 07/18/24 17:06
Calcium 7.9 mg/dl (8.4-10.2) L 07/18/24 17:06
Phosphorus 2.8 mg/dl (2.5-4.5) 07/18/24 06:30
Albumin 3.7 g/dl (3.5-5.0) 07/08/24 18:34
Physical Exam
-
Vital Signs:
Vital Signs
Temp Pulse Resp BP Pulse Ox
96.5 F L 79 15 127/50 95
07/18/24 19:45 07/18/24 21:30 07/18/24 21:30 07/18/24 21:00 07/18/24 21:30
Cardiovascular:: Regular rate and rhythm
Respiratory:: Bilateral: Coarse
Lung Excursion:: Normal
Abdomen:: Nontender and Soft
Bowel Sounds:: Normal
Extremity Edema:: None: Bilateral:
[2024-07-19] VITALS (24 sets, daily range): BP systolic 98–149; BP diastolic 37–95; BMI 22.1; BMI 21.2
--- NOTE | 2024-07-19 00:23 | PTCARENOTE ---
Pt GCS 15, SHELL following commands, intermittent confusion which is baseline as per daughter. Pt pleasant and cooperative. Dilaudid for pain. Afebrile. NSR on monitor. Art line flushed/zeroed. Levophed weaned to off shortly after arriving from PACU.
IVF as ordered. Pulses via doppler, strong signals. Post op dressing CDI right leg. Room air. Lungs clear. Clears initiated, tolerating sips of clears. Hypoactive bowel sounds. Boudreaux changed in OR, initially placed for urinary retention on the
floor. Will continue pulse checks q1h. Pt resting comfortably.
[2024-07-19 03:37] LABS: Hematocrit 22.6 % (39.0-52.0); Hemoglobin 7.8 g/dL (13.0-18.0); Mean Corp Hgb Conc. 34.5 g/dL (33.0-37.0); Mean Corpuscular Hgb 30.7 pg (27.0-31.0); Mean Platelet Volume 12.1 fL (7.4-10.4); Platelet Count 164 10^3/uL (130-400); Red Blood Cell Count 2.54 10^6/uL (4.70-6.10); Red Cell Dist. Width 16.1 % (11.5-14.5); White Blood Cell Count 9.8 10^3/uL (4.8-10.8)
[2024-07-19 03:53] LABS: INR 1.16; PT 15.1 Sec (11.4-14.6)
[2024-07-19 03:54] LABS: APTT 31.2 Sec (23.4-35.0)
[2024-07-19 04:03] LABS: Blood Urea Nitrogen 34 mg/dl (9-20); Calcium 8.1 mg/dl (8.4-10.2); Carbon Dioxide 23 mmol/L (22-30); Chloride 111 mmol/L (98-107); Estimated Creatinine Clearance 25 ml/min; Glucose 187 mg/dl (70-99); Potassium 4.3 mmol/L (3.5-5.1); Sodium 141 mmol/L (135-145); eGFR 32.71
[2024-07-19 04:20] LABS: Troponin I 0.238 ng/ml
--- NOTE | 2024-07-19 04:30 | PTCARENOTE ---
No change in previous assessment. Strong doppler signals in bilateral lower extremities. AM care provided. Labs sent and resulted. Will monitor.
[2024-07-19] MEDS: NSS 1000 IV (06:09)
--- NOTE | 2024-07-19 07:50 | W.PN.NEPH.PH ---
Today's Communication / Plan
-
observe
follow bmp
anti-htns held
on low dose zehra
Assessment/Plan
-
Assessment
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
Peripheral arterial disease
Hypertension
Diabetes mellitus type 2
Tobacco use
Moderate , MR
Right leg pain, RLE bypass 07/18
Plan
Creatinine stable at 2
Nonoliguric
Hemodynamically stable with low dose pressor support
follow BMP
eventual voiding trial
Maintain escalated flomax dosage
-
-
Date of Service: July 19, 2024
CC / HPI / ROS
-
Chief Complaint:
PAD
History of Present Illness:
CKD stage IV with a PAD ischemic limb potential requiring vascular intervention
DONALD/Cr at 2
s/p RLE bypass
BP stable with low-dose pressors
hinton in place for retention
Review of Systems:.
No chest pain or shortness of
Confused
Labs
-
Labs:
WBC 9.8 10^3/uL (4.8-10.8) 07/19/24 03:14
RBC 2.54 10^6/uL (4.70-6.10) L 07/19/24 03:14
Hgb 7.8 g/dL (13.0-18.0) L 07/19/24 03:14
Hct 22.6 % (39.0-52.0) L 07/19/24 03:14
Plt Count 164 10^3/uL (130-400) 07/19/24 03:14
Sodium 141 mmol/L (135-145) 07/19/24 03:14
Potassium 4.3 mmol/L (3.5-5.1) 07/19/24 03:14
Chloride 111 mmol/L (98-107) H 07/19/24 03:14
Carbon Dioxide 23 mmol/L (22-30) 07/19/24 03:14
BUN 34 mg/dl (9-20) H 07/19/24 03:14
Creatinine 2.0 mg/dL (0.7-1.3) H 07/19/24 03:14
eGFR 32.71 07/19/24 03:14
Glucose 187 mg/dl (70-99) H 07/19/24 03:14
Calcium 8.1 mg/dl (8.4-10.2) L 07/19/24 03:14
Phosphorus 2.8 mg/dl (2.5-4.5) 07/18/24 06:30
Albumin 3.7 g/dl (3.5-5.0) 07/08/24 18:34
Physical Exam
-
Vital Signs:
Vital Signs
Temp Pulse Resp BP Pulse Ox
97.6 F 64 6 124/49 92
07/19/24 07:44 07/19/24 06:30 07/19/24 06:30 07/19/24 06:00 07/19/24 06:30
Cardiovascular:: Regular rate and rhythm
Respiratory:: Bilateral: Coarse
Lung Excursion:: Normal
Abdomen:: Nontender and Soft
Bowel Sounds:: Normal
Extremity Edema:: None: Bilateral:
--- NOTE | 2024-07-19 08:09 | W.PN.VS ---
Addendum entered and electronically signed by Chase Fay MD 07/19/24 09:11:
Seen and examined with RON Zamudio. Agree with findings as noted below. Patient without significant complaints except incisional pain. No further rest pain in the foot. Right lower extremity dressings all clean dry and intact. Thigh and calf are
all soft. No evidence of hematoma. 2+ palpable graft pulse behind the knee. Excellent phasic dopplerable PT signal. Foot is warm!. Plan/as discussed and noted below. Will repeat hemoglobin check. If any lower we will plan transfusion.
Original Note:
Today's Communication / Plan
-
Seen and assessed with Dr. Fay
Assessment/Plan
-
Postop day 1 right FEA and lower extremity bypass with vein
Plan:
DC A-line
DC IV fluids
Out of bed to chair today, will progress to ambulation tomorrow
Will touch base with team about Boudreaux catheter (placed for retention)
Remain in ICU today
Subjective Data
-
Date of Service: July 19, 2024
Patient seen at bedside this a.m. with Dr. Fay. Patient offers no complaints at this time. No events overnight.
Objective Data
-
Vital Signs
Temp Pulse Resp BP Pulse Ox
97.6 F 64 6 124/49 92
07/19/24 07:44 07/19/24 06:30 07/19/24 06:30 07/19/24 06:00 07/19/24 06:30
Intake and Output
07/18/24 07/19/24 07/20/24
06:59 06:59 06:59
Intake Total 1979 / 1979 887.5 / 887.5
Output Total 2300 / 2300 500 / 500
Balance -320 / -320 387.5 / 387.5
Intake:
Oral fluids 1919 / 1919
IV fluids (Total) 887.5 / 887.5
LEVO 7.5 / 7.5
Nss 1,000 ml @ 80 mls/hr IV . 880 / 880
[id number] [facility] Rx#:[id number]
IV piggybacks 60 / 60
Output:
Urine, Boudreaux 2300 / 2300 500 / 500
Other:
Number of approximated LARGE 1
amounts of urine
Lab Results
07/19/24 03:14
07/19/24 03:14
Calcium 8.1 mg/dl (8.4-10.2) L 07/19/24 03:14
Phosphorus 2.8 mg/dl (2.5-4.5) 07/18/24 06:30
Magnesium 1.5 mg/dl (1.6-2.3) L 07/18/24 06:30
Total Bilirubin 0.4 mg/dl (0.2-1.3) 07/08/24 18:34
AST 17 U/L (17-59) 07/08/24 18:34
ALT 15 U/L (0-50) 07/08/24 18:34
Alkaline Phosphatase 59 U/L (38-126) 07/08/24 18:34
Total Protein 6.8 g/dl (6.3-8.2) 07/08/24 18:34
Albumin 3.7 g/dl (3.5-5.0) 07/08/24 18:34
Physical Exam
-
AAO x 3
No tachypnea on room air
No tachycardia
Abdomen soft
Aquacel's clean, dry, intact, compartments soft
Foot warm with excellent PT Doppler signal
--- NOTE | 2024-07-19 08:24 | CON.INTV ---
Consultation
Consultation Request
Date/Time Consultation Requested: 07/18/2024 - 1626
Date/Time Consultation Performed: 07/19/2024 - 805
Requesting Provider: CARLOS Espinoza
Performing Provider: Dr. Curtis
Reason for Consultation: s/p RLE surgical bypass
Medical History
-
Chief Complaint: Right leg pain
History of Present Illness:
84-year-old male active tobacco smoker with a past medical history of PVD, hypertension, hypercholesterolemia, carotid artery stenosis s/p left carotid artery stenting + right CEA, CAD with history of AK s/p stenting to RCA + LCx, nonalcoholic fatty
liver disease, statin intolerance, ichthyosis vulgaris, BPH with LUTS, Slim's thyroiditis, anemia, DM type II, CKD and history of shingles with postherpetic trigeminal neuralgia who presents with right lower extremity pain. Patient has right
foot pain at rest. There was no acute change but his right foot increasingly became more painful which is what prompted him to come to the hospital. Patient follows with Dr. Fay in the office. CT abdominal aorta with runoff obtained on 07/09/2024
showed heavily calcified plaque near the origin of the right external iliac artery with >75% stenosis with 50% stenosis within the left common iliac artery. Vascular surgery was consulted and surgical revascularization was discussed. Due to his
history of CKD, nephrology was consulted. His creatinine did rise to 2.4 on 07/14, although did improve to 2.1�2.3. The patient had periods of confusion which was chronic, and neurology was consulted. Patient agreed to right lower extremity
arteriogram. On 07/15/2024, patient underwent right lower extremity tear gram with right external iliac artery balloon angioplasty and stent placement. Patient tolerated the procedure. Unfortunately patient continued to endorse right lower
extremity pain, hence he was brought back to the OR on 07/18/2024 and underwent a right femoral endarterectomy/profundoplasty with saphenous vein patch angioplasty, with right femoral to below the knee popliteal artery bypass with reversed
ipsilateral greater saphenous vein conduit. There were no complications, and patient was transferred to the ICU postoperatively for further care. Sales Marketing Coordinator services consulted for additional management/recommendations.
Patient seen and evaluated this morning. Currently heart rate 75, BP 119/87. He endorses constipation this morning. His daughter, Neisha, was present at bedside. Patient has pain at his operative site at the right groin but otherwise feels well.
He denies PUGH, chest pain, SOB, nausea, fevers or chills.
PMHx: PVD, hypercholesterolemia, hypertension, history of rosacea, tobacco use disorder, CAD s/p stent, carotid artery stenosis s/p left carotid artery stenting + right CEA (2000), history of AK, history of kidney stone s/p cystoscopy with right
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
trigeminal neuralgia, history of CVA, and CKD
PSHx: Cystoscopy with right-sided ureteroscopy with stone extraction and right double-J stent, right carotid endarterectomy (2000), left internal carotid artery stenting, coronary stent into RCA + LCx (05/2010), bilateral inguinal hernia open repair
with plug and patch, right TCAR (11/2020)
Past Medical History
Past Medical History: Other (Above as per HPI)
Past Surgical History: Other (Above as per HPI)
Social History
Tobacco: Smoker (Started smoking at age 17, smokes 0.25 PPD)
Alcohol: None
Drug: None
Family History
Family History: CAD (Mother), Cancer (Father: Prostate cancer) and Diabetes (Paternal grandmother + maternal grandmother; all siblings and his son)
Allergies / Home Medications
Allergies
Allergy/AdvReac Type Severity Reaction Status Date / Time
[id number] Reductase Allergy leg pain, Verified 07/06/24 02:12
Inhibitor Myalgias
[Statins: Hmg-Coa Reductase
Inhibito]
Home Medications
�Medication �Instructions �Recorded �Confirmed �Last Taken �Type
ezetimibe 10 mg tablet 10 mg PO DAILY High cholesterol 11/24/16 07/09/24 11/23/20 History
nitroglycerin 0.4 mg sublingual 0.4 mg sublingual [id number] PRN 11/25/16 07/09/24 Unknown Rx
tablet chest pain ##25
amlodipine 10 mg tablet 10 mg PO QPM Blood pressure 11/13/20 07/09/24 01/05/21 History
cholecalciferol (vitamin D3) 25 1,000 units PO DAILY Supplement 11/13/20 07/09/24 11/23/20 History
mcg (1,000 unit) tablet
isosorbide mononitrate 30 mg 30 mg PO DAILY Blood pressure 11/13/20 07/09/24 11/23/20 History
tablet,extended release 24 hr
metoprolol tartrate 25 mg tablet 50 mg PO BID Blood pressure 11/13/20 07/09/24 01/05/21 History
acetaminophen 325 mg tablet 650 mg PO Q6HPRN PRN mild pain 07/09/24 07/09/24 Unknown History
(Tylenol)
aspirin 81 mg chewable tablet 81 mg PO DAILY Blood Clot 07/09/24 07/09/24 Unknown History
Prevention/Tx
finasteride 5 mg tablet 5 mg PO QPM BPH 07/09/24 07/09/24 Unknown History
insulin glargine 100 unit/mL (3 16 unit SC HS Diabetes 07/09/24 07/09/24 Unknown History
mL) subcutaneous pen (Lantus
Solostar U-100 Insulin)
nateglinide 120 mg tablet 120 mg PO AC Diabetes 07/09/24 07/09/24 Unknown History
silodosin 8 mg capsule 8 mg PO QPM BPH 07/09/24 07/09/24 Unknown History
sodium bicarbonate 650 mg tablet 1,300 mg PO BID ALKALINIZING AGENT 07/09/24 07/09/24 Unknown History
Review of Systems
-
History Source: Patient
All other systems: Negative unless noted
Vitals / Labs / Diagnostic Testing
Vital Signs
Temp Pulse Resp BP Pulse Ox
97.6 F 68 19 125/55 92
07/19/24 07:44 07/19/24 08:30 07/19/24 08:30 07/19/24 08:00 07/19/24 08:46
Lab Data
07/19/24 03:14
07/19/24 03:14
Laboratory Results
07/18/24 07/18/24 07/19/24
12:50 17:06 03:14
PT 15.0 H 15.1 H
INR 1.15 1.16
APTT Cancelled 34.3 31.2
Diagnostic Testing:
Physical Exam
-
HEENT: Normocephalic and Anicteric
Cardiovascular: S1/S2, Murmur (RUBA heard across precordium) and Peripheral Edema (negative)
Respiratory: Clear, Wheeze (negative), Rales (negative), Rhonchi (negative) and Non-Labored Respirations
GI: Soft, Non Distended, Non Tender and Normal Bowel Sounds
Neurology: AO x 3 and Tremors (negative)
Skin: Warm, Dry and Other (Bandage over right groin)
General: Respiratory Distress (negative), Comfortable, Pain (Tenderness at right groin site), Chills (negative) and Sweats (negative)
Assessment
-
Assessment: 84-year-old male active tobacco smoker with a past medical history of PVD, hypertension, hypercholesterolemia, carotid artery stenosis s/p left carotid artery stenting + right CEA, CAD with history of AK s/p stenting to RCA + LCx,
nonalcoholic fatty liver disease, statin intolerance, ichthyosis vulgaris, BPH with LUTS, Slim's thyroiditis, anemia, DM type II, CKD and history of shingles with postherpetic trigeminal neuralgia who presents with right lower extremity pain.
Patient has right foot pain at rest. There was no acute change but his right foot increasingly became more painful which is what prompted him to come to the hospital. Patient follows with Dr. Fay in the office. CT abdominal aorta with runoff
obtained on 07/09/2024 showed heavily calcified plaque near the origin of the right external iliac artery with >75% stenosis with 50% stenosis within the left common iliac artery. Vascular surgery was consulted and surgical revascularization was
discussed. Due to his history of CKD, nephrology was consulted. His creatinine did rise to 2.4 on 07/14, although did improve to 2.1�2.3. The patient had periods of confusion which was chronic, and neurology was consulted. Patient agreed to right
lower extremity arteriogram. On 07/15/2024, patient underwent right lower extremity tear gram with right external iliac artery balloon angioplasty and stent placement. Patient tolerated the procedure. Unfortunately patient continued to endorse
right lower extremity pain, hence he was brought back to the OR on 07/18/2024 and underwent a right femoral endarterectomy/profundoplasty with saphenous vein patch angioplasty, with right femoral to below the knee popliteal artery bypass with
reversed ipsilateral greater saphenous vein conduit. There were no complications, and patient was transferred to the ICU postoperatively for further care. Sales Marketing Coordinator services consulted for additional management/recommendations.
Chronic conditions RN PROGRESSIVE CARE: PVD, hypercholesterolemia, hypertension, history of rosacea, tobacco use disorder, CAD s/p stent, carotid artery stenosis s/p left carotid artery stenting + right CEA (2000), history of AK, history of kidney stone s/p
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
postherpetic trigeminal neuralgia, history of CVA, and CKD
Impression:
#Chronic limb threatening ischemia right lower extremity s/p right femoral endarterectomy/profundoplasty with saphenous vein patch angioplasty + right femoral to below the knee popliteal artery bypass with reversed ipsilateral greater saphenous vein
conduit (POD#0)
#Circulatory shock likely due to postoperative anesthesia - now resolved as of the evening of 07/18/2024
#DM type II (uncontrolled: HbA1c 10.3 on 07/09/2024) complicated by hyperglycemia
#Elevated troponin likely due to demand ischemia due to transient hypotension requiring vasopressors in the setting of known CAD
#Chronic anemia
#CKD
#CAD s/p stenting to LCx + RCA
#Hypertension
#Hypercholesterolemia
#Active tobacco use
#Carotid artery stenosis s/p left carotid artery stenting + right CEA
#Nonalcoholic fatty liver disease
#Statin intolerance
#BPH with LUTS
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
Plan:
Postoperative surgical intensive care unit monitoring
Supplemental oxygen as needed to maintain SpO2 >90-94%
prn nebulized bronchodilators (not currently bronchospastic)
Incentive spirometry encouraged 10x per hour for at least 4 hrs a day
Aspiration precautions
Pain control
Neuro and vascular checks per protocol
Maintain MAP>65
Replete electrolytes with K>4, Mg>2
Maintain euglycemia with goal BG 140-180
Vascular surgery following-correspondence and operative notes reviewed
Transfuse blood products as needed to keep Hb>7g/dL, and plt>50k (given post-operative status)
Although patient has been smoking since he was 17 years old, he does not qualify for lung cancer screening given he is >80 years old
He does not endorse shortness of breath or chronic cough. He is always welcome to see us in the [facility] office for spirometry/PFT testing and to discuss inhalers if he were to become symptomatic
DVT prophylaxis
Early nutrition
Early mobilization
Code status: DNR/DNI
Continue ICU level of care with q1hr neurovascular checks per vascular surgery. Once patient is deemed stable for downgrade out of ICU, then our service will sign off at that time.
Critical care statement: A total of 41 minutes of critical care time was provided for this patient today. This includes management of unstable vital signs, evaluation of the patient at bedside, reviewing the patient's pertinent medical records
including radiographs, microbiology, laboratory evaluations, and discussion with primary team, consultants, pharmacy, nutrition, physical therapy, case management, charge nurse, critical care nursing, and respiratory therapy.
[2024-07-19 08:38] LABS: Glucose - Point of Care 144 mg/dl (70-99)
[2024-07-19] MEDS: NOVOLOG FLEXPEN 5 UNITS SC ×3 (08:49→16:44)
[2024-07-19] MEDS: NOVOLOG FLEXPEN-LOW RESISTANCE SC (08:49)
[2024-07-19] MEDS: PLAVIX 75 MG PO (08:50)
[2024-07-19] MEDS: IMDUR (EXTENDED RELEASE) 30 MG PO (08:51)
[2024-07-19] MEDS: SODIUM BICARBONATE 1300 MG PO ×2 (08:51→20:26)
[2024-07-19] MEDS: PROSCAR 5 MG PO (08:51)
[2024-07-19] MEDS: PROTONIX 40 MG PO (08:51)
--- NOTE | 2024-07-19 08:51 | W.PN.HOSP.TC ---
Today's Communication/Plan
-
cont post-op care as per Vascular
resume antihypertensives with holding parameters
Assessment / Plan
Assessment / Plan
Physical Exam
General: NAD
HEENT: Scleral Anicteric MMM No JVD
Pulm: CTABL
Cardio: RRR, S1/S2, II/ systolic murmur
Abd: Soft, NT, ND, BS+
Ext: RLE dressing clean dry intact
Neuro: Alert Conversant Coherent
Psych: Calm
84M ASCVD diabetes CKDIV Hypothyroidism Rosacea here for PAD critical limb ischemia RLE
PAD
RLE critical limb ischemia
Vascular eval appreciated
Right lower extremity angiogram/angioplasty with stent placement 07/15/2024
RLE bypass 07/18/24 subsequently transferred to ICU for post-op care requiring pressor support since weaned off
Placement Director eval appreciated
Altered mental status intermittent likely secondary to hospital-acquired delirium exacerbated by anesthesia and opiate pain meds
Continue frequent reorientation
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
New Zyprexa at bedtime ordered, mental status improved on zyprexa, cont
IgA Gammopathy Unclear Significance/Etiology
Hematology eval appreciated outpatient follow up recommended
CKD stage IV
At this time reluctant about dialysis
Nephro eval appreciated
contrast IVF ppx as per nephro since completed
Hypertension
Amlodipine Metoprolol held while on pressor post-op since resumed
Diabetes type 2
sliding scale
Novolog 5U
Lantus 16U
monitor and titrate insulin regimen as necessary
Moderate AAS/MR
Outpatient cardiology follow-up
BPH
Continue Flomax and finasteride
Flomax dose increased as per Nephro
Stage 1 bilateral heel pressure injury
cont local wound care
07/15/24 AOx3 at capacity to make his own decisions. Patient has indicated that, if unable to make his own decisions, he would like his children (sons Leonidas and Tremayne and daughter Neisha) to make his decisions for him.
DVT ppx
DNR
Discussed with patient and patient's daughter Neisha
Total Critical Care Time__35___ minutes. I was immediately available to the patient and staff. I personally examined, reviewed labs, diagnostic images/reports, interpretations, treatment plans, discussed patient care with other providers and
family or caregivers (if patient is unable to make decisions), entered orders as appropriate and documented the medical record.
Anticipated Discharge: 24 - 48 hours
Subjective/Interval History
-
Date of Service: July 19, 2024
no acute distress. appears comfortable at this time. some intermittent confusion noted. Patient otherwise Alert conversant coherent
Objective Data
-
Labs:
Laboratory Results
07/19/24
03:14
WBC 9.8
Hgb 7.8 L
Hct 22.6 L
Plt Count 164
PT 15.1 H
INR 1.16
APTT 31.2
Sodium 141
Potassium 4.3
Chloride 111 H
Carbon Dioxide 23
BUN 34 H
Creatinine 2.0 H
Glucose 187 H
Calcium 8.1 L
Vital Signs:
Vital Signs
Temp Pulse Resp BP Pulse Ox
97.6 F 68 19 125/55 92
07/19/24 07:44 07/19/24 08:30 07/19/24 08:30 07/19/24 08:00 07/19/24 08:46
I&O
07/18/24 07/19/24 07/20/24
06:59 06:59 06:59
Intake Total 1979 / 1979 887.5 / 967.5 160 / 160
Output Total 2300 / 2300 500 / 500
Balance -320 / -320 387.5 / 467.5 160 / 160
--- NOTE | 2024-07-19 10:30 | W.PN.CD ---
Today's Communication / Plan
-
- Stable from a cardiac standpoint status-post right femoral bypass.
- Continue current medications and plan of care.
- No further cardiac recommendations at this time; Cardiology will remain available on an as-needed basis.
- Outpatient follow-up with Cardiology.
Impression / Plan
-
PVD/Chronic limb threatening ischemia:
- Stable from a cardiac standpoint status-post right femoral bypass.
- Continue aspirin/Plavix; statin-intolerant--continue Zetia.
- Continue recommendations as per Vascular Surgery.
CAD with hx stenting:
- Denies any anginal symptoms.
- most recent ischemic evaluation as below
- Continue ASA, metoprolol, and Isosorbide mononitrate ER.
- Statin intolerant. Declined PCSK9I as OP per Dr. Cheng's noted.
- Continue Zetia.
HTN:
-continue meds and monitor
Tobacco abuse:
-Quit 2 weeks ago.
- Should continue to refrain from tobacco use.
CKDIV:
- Creatinine 2.0; nephrology following.
Mild to moderate /MS:
- Continue to monitor as outpatient.
Data:
-cardiac cath 2017: LAD: Tandem 40% and 30% mid LAD and 50% mid to distal LAD stenoses. The moderate sized second diagonal branch has 60% ostial and 80% mid stenosis. Circumflex: Widely patent proximal circumflex stent with 40% distal circumflex
proximal to the first LPL. There is one moderate and two small LPL branches. RCA: There is a long stented segment (full metal jacket) from the proximal vessel to the distal RCA. There is occlusion of the mid to distal RCA at the crux. A small PDA
fills via left coronary collaterals.
-Echo 07/09/24: Normal biventricular size and systolic function without regional wall motion abnormality. LVEF 70-75%. Mild to moderate functional mitral stenosis (mean gradient 4 mmHg, MVA by PHT 1.3 cm2). Mild to moderate aortic stenosis (peak/mean
40/70 mmHg, PREET 1.2 cm2). Mild tricuspid regurgitation. PASP 37 mmHg.
-Abd CT:-RIGHT LOWER EXTREMITY: Heavily calcified plaque near the origin of the right external iliac artery, associated with high-grade greater than 75% stenosis. Greater than 75% stenosis at the origin of the right internal iliac artery. Calcified
common femoral plaque, associated with approximately 75% stenosis. Multifocal high-grade stenoses throughout the right SFA. Areas of focal SFA occlusion are not excluded due to heavily calcified plaque. Multifocal 50-75% stenoses within the right
popliteal artery. Right anterior tibial artery is occluded. Posterior tibial and peroneal arteries are patent to the level of ankle.
2. LEFT LOWER EXTREMITY. Approximately 50% stenosis within the left common iliac artery. Multifocal 50-75% stenoses within the left external iliac and common femoral arteries. Left SFA is occluded at its origin and along its length, with
reconstitution of the popliteal artery. Multifocal 50-75% stenoses of the left popliteal artery. Left anterior tibial artery is occluded near its origin. Posterior tibial and peroneal arteries are patent.
3. Ulcerated plaque throughout the abdominal aorta. Mild stenosis near the origin of the celiac axis, estimated 50-75%. SMA and SARAH are patent.
4. Severe coronary arterial calcification. Please correlate with symptoms of and risk factors for coronary artery disease, with further workup as clinically appropriate.
Physical Exam
Vital Signs/Labs
Vital Signs
Temp Pulse Resp BP Pulse Ox
97.6 F 68 19 125/55 92
07/19/24 07:44 07/19/24 08:30 07/19/24 08:30 07/19/24 08:00 07/19/24 08:46
07/18/24 07/19/24 07/20/24
06:59 06:59 06:59
Actual Weight 65.346 kg 63.8 kg 61.4 kg
07/19/24 03:14
PT 15.1 Sec (11.4-14.6) H 07/19/24 03:14
INR 1.16 07/19/24 03:14
APTT 31.2 Sec (23.4-35.0) 07/19/24 03:14
Magnesium 1.5 mg/dl (1.6-2.3) L 07/18/24 06:30
LAB Results
07/18/24 07/18/24 07/19/24
14:41 17:06 03:14
Troponin I 0.023 0.019 0.238 H*
Physical Exam
Constitutional: No acute distress and Comfortable
EENT: Anicteric
Cardiovascular: Rhythm & rate is regular, Pedal edema is absent, Systolic murmur present (/) and S1S2 is normal
Respiratory: Respiratory effort normal and Lungs clear to auscul.
GI: Soft
Neuro/Psych: AO x 3
Other: Skin (Warm, dry)
Data Reviewed
-
Date of Service: July 19, 2024
EKG: Tracing Personally Visualized and interpreted (Telemetry: Sinus rhythm)
Echo: Report Reviewed by me (EF 70-75%, mild to moderate MR/)
Medical Tests (PFT, Pathology etc): Discussed with Patient
Labs: Labs Reviewed by me
Critical Care Time (in minutes): 36
[2024-07-19] MEDS: FLOMAX 0.4 MG PO ×2 (10:45→20:26)
[2024-07-19] MEDS: LOW STRENGTH ASPIRIN 81 MG PO (10:45)
[2024-07-19 10:53] LABS: Troponin I 0.525 ng/ml
[2024-07-19 11:02] LABS: Hematocrit 23.4 % (39.0-52.0); Hemoglobin 7.9 g/dL (13.0-18.0); Mean Corp Hgb Conc. 33.8 g/dL (33.0-37.0); Mean Corpuscular Hgb 30.2 pg (27.0-31.0); Mean Corpuscular Volume 89.3 fL (80.0-94.0); Mean Platelet Volume 11.5 fL (7.4-10.4); Platelet Count 178 10^3/uL (130-400); Red Blood Cell Count 2.62 10^6/uL (4.70-6.10); Red Cell Dist. Width 16.3 % (11.5-14.5); White Blood Cell Count 10.4 10^3/uL (4.8-10.8)
[2024-07-19] MEDS: MIRALAX 17 GRAMS PO (11:51)
[2024-07-19] MEDS: DULCOLAX 10 MG RECTAL (11:51)
[2024-07-19] MEDS: SENOKOT-S 2 TABLET PO (12:02)
--- NOTE | 2024-07-19 12:07 | PTCARENOTE ---
Pt OOB to the commode. Bearing down to have a BM. He was instructed NOT to bear down. Miralax, senna w/colace & Dulcolax administered. He prefers to remain on the bedside commode for now. His daughter left the room. Safe environment maintained. Will
continue to monitor.
[2024-07-19 12:45] LABS: Glucose - Point of Care 150 mg/dl (70-99)
[2024-07-19] MEDS: NOVOLOG FLEXPEN-LOW RESISTANCE 1 UNITS SC ×2 (12:45→16:44)
--- NOTE | 2024-07-19 12:52 | PTCARENOTE ---
Pt was found on the side of the bed. He got himself off the commode. He was informed that he was to call for me when he was done. Once back to bed he hit the call ennis for the nurse to help him back to bed, then laughed. I emphasized that he MUST
call for assistance, that his safety is our priority. He verbalized his understanding. Minimal pain from his right leg. Heels elevated on pillows. Good doppler signal to his right DP/PT. Daughter is at the bedside. Pt stated he would take a nap,
lunch order called in. Safe environment maintained.
[2024-07-19] MEDS: VITAMIN D3 (cholecalciferol) PO (13:03)
[2024-07-19] MEDS: VIBRAMYCIN PO (13:12)
--- NOTE | 2024-07-19 13:52 | SUR.PHASEI ---
Daughter expressed her concern for his mental status. He is having confused conversations. He does not recall that he was sitting on the commode or that he got himself back to bed. Dr. Daly and Hermila GONZALEZ notified. Pt had MRI 07/09/24 due to
similar event.
[2024-07-19 15:28] LABS: B.E. - POC -1.8 mmol/L; Glucose - POC 144 mg/dl (70-99); HCO3 - POC 25 mmol/L (21-28); Hematocrit - POC 25 % PCV (42-52); Hemodilution- POC Yes; Hemoglobin Calculated - POC 8.4; Ionized Calcium - POC 1.18 mmol/L (1.15-1.33); Lactate - POC < 0.30 mmol/L (0.36-0.75); O2 Saturation %Calculated-POC 99.9 % (94-98); PCO2 - POC 51 mmHg (35-48); PO2 - POC 321 mmHg (83-108); Potassium - POC 3.7 mmol/L (3.5-5.1); Sodium - POC 146 mmol/L (136-145); Specimen Type - POC Arterial
--- NOTE | 2024-07-19 15:32 | CM ---
POA paperwork completed and in chart. Steven (son) is primary and Neisha (daughter) is substitute or successor. Bed to chair today. Plan to ambulate tomorrow. Boudreaux for urinary retention. Therapy recommending SNF. Preferences are [facility]. Will forward referrals.
--- NOTE | 2024-07-19 15:33 | PTCARENOTE ---
Son Leonidas and daughter at the bedside. Tension detected between siblings regarding expenses for their Father's apartment. Bladder scanned for 333ml's. Will reassess per protocol.
[2024-07-19 16:12] LABS: TSH Reflex To Free T4 0.62 uIU/ml (0.47-4.68)
[2024-07-19 16:43] LABS: Glucose - Point of Care 197 mg/dl (70-99)
[2024-07-19 16:57] LABS: Hemoglobin 7.8 g/dL (13.0-18.0)
[2024-07-19 17:35] LABS: Troponin I 0.669 ng/ml
[2024-07-19] MEDS: TYLENOL 650 MG PO (20:26)
[2024-07-19] MEDS: ZYPREXA 2.5 MG PO (20:26)
[2024-07-19] MEDS: LANTUS 0.16 UNITS SC (20:27)
[2024-07-19 20:40] LABS: Glucose - Point of Care 123 mg/dl (70-99)
--- NOTE | 2024-07-19 22:00 | PTCARENOTE ---
Pt alert with periods of confusion. Pleasant when being reoriented and recognized staff from previous conversations. Seems to be confused when he falls asleep and first wakes up. Very cooperative, but can also be impulsive, bed alarm on for safety.
Pt educated on importance of calling for assistance to use the commode or get OOB. Tylenol given as requested for mild pain. Pt sleeping in between care. Afebrile. NSR on monitor. BP 130/60s. Additional IV line placed with lab draw. Pulses intact,
strong doppler signals in bilateral lowers. Neurovascular checks as ordered. Post op dressing remains intact. Pt found playing with shabana wrap trying to unravel it but intercepted fairly quickly and reminded to keep hands away from incision. Pt
complied. Tolerating diet, no nausea. Attempts made to have BM, flatus noted and very small smear. Unable to void this shift or last shift. Will continue to bladder scan/straight cath. Updated son Leonidas over the phone, Will monitor.
[2024-07-19] MEDS: LOPRESSOR PO (22:53)
[2024-07-20] VITALS (11 sets, daily range): BP systolic 117–160; BP diastolic 43–61; BMI 23.5
[2024-07-20 02:23] LABS: Hematocrit 23.2 % (39.0-52.0); Mean Corp Hgb Conc. 34.5 g/dL (33.0-37.0); Mean Corpuscular Hgb 30.7 pg (27.0-31.0); Mean Corpuscular Volume 88.9 fL (80.0-94.0); Mean Platelet Volume 11.6 fL (7.4-10.4); Platelet Count 174 10^3/uL (130-400); Red Blood Cell Count 2.61 10^6/uL (4.70-6.10); Red Cell Dist. Width 16.3 % (11.5-14.5); White Blood Cell Count 9.1 10^3/uL (4.8-10.8)
[2024-07-20 02:46] LABS: Blood Urea Nitrogen 36 mg/dl (9-20); Calcium 8.7 mg/dl (8.4-10.2); Carbon Dioxide 26 mmol/L (22-30); Chloride 112 mmol/L (98-107); Estimated Creatinine Clearance 24 ml/min; Glucose 87 mg/dl (70-99); Potassium 4.2 mmol/L (3.5-5.1); Sodium 142 mmol/L (135-145); eGFR 30.85
--- NOTE | 2024-07-20 05:00 | PTCARENOTE ---
Overnight pt retaining after multiple bladder scans/straight caths. Boudreaux placed as ordered without difficulty. Will monitor.
[2024-07-20 05:27] LABS: Magnesium 1.6 mg/dl (1.6-2.3)
--- NOTE | 2024-07-20 07:02 | W.PN.VS ---
Today's Communication / Plan
-
Patient seen and examined with Dr. Birgit Davis, below plan reviewed with attending.
Assessment/Plan
-
Postop day 2 right FEA and lower extremity bypass with vein
Plan:
OOB to chair with progression to ambulation as tolerated
PT/OT
Will defer to primary team for management of Boudreaux catheter as it was placed for retention
Okay to downgrade to telemetry from a vascular surgical perspective
Continue aspirin 81 mg p.o. daily, patient is allergic to statins
Continue neurovascular checks
Continue to encourage incentive spirometry
Subjective Data
-
Date of Service: July 20, 2024
Patient seen and examined at bedside, offers no complaints. Reports improved right foot pain following surgery. Denies nausea, vomiting, fever, and chills. Reports well-managed postoperative pain.
Objective Data
-
Vital Signs
Temp Pulse Resp BP Pulse Ox
98.4 F 67 22 117/54 94
07/20/24 00:10 07/20/24 01:15 07/20/24 01:15 07/20/24 01:00 07/19/24 22:00
Intake and Output
07/19/24 07/20/24 07/21/24
06:59 06:59 06:59
Intake Total 887.5 / 967.5 880 / 880
Output Total 500 / 500 600 / 600
Balance 387.5 / 467.5 280 / 280
Intake:
Oral fluids 720 / 720
IV fluids (Total) 887.5 / 967.5 160 / 160
LEVO 7.5 / 7.5
Nss 1,000 ml @ 80 mls/hr IV . 880 / 960 160 / 160
[id number] BURT Rx#:[id number]
Output:
Urine, Boudreaux 500 / 500 200 / 200
Straight cath output 400 / 400
Other:
Number of approximated LARGE 1
amounts of urine
Lab Results
07/20/24 02:12
07/20/24 02:12
Calcium 8.7 mg/dl (8.4-10.2) 07/20/24 02:12
Phosphorus 2.8 mg/dl (2.5-4.5) 07/18/24 06:30
Magnesium 1.6 mg/dl (1.6-2.3) 07/20/24 02:12
Total Bilirubin 0.4 mg/dl (0.2-1.3) 07/08/24 18:34
AST 17 U/L (17-59) 07/08/24 18:34
ALT 15 U/L (0-50) 07/08/24 18:34
Alkaline Phosphatase 59 U/L (38-126) 07/08/24 18:34
Total Protein 6.8 g/dl (6.3-8.2) 07/08/24 18:34
Albumin 3.7 g/dl (3.5-5.0) 07/08/24 18:34
Physical Exam
-
AAO x 3
No tachypnea on room air
No tachycardia
Abdomen soft
All Aquacel is removed, right leg staple sites CDI well-approximated, palpable behind knee bypass graft pulse
Right foot foot warm with excellent PT Doppler signal
[2024-07-20] MEDS: MAGNESIUM SULFATE 50 IV (07:15)
--- NOTE | 2024-07-20 08:10 | W.PN.NEPH.PH ---
Today's Communication / Plan
-
observe
Assessment/Plan
-
Assessment
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
Peripheral arterial disease
Hypertension
Diabetes mellitus type 2
Tobacco use
Moderate , MR
Right leg pain, RLE bypass 07/18
Plan
Creatinine stable at ~ 2
Nonoliguric
Hemodynamically stable off pressors
follow BMP
eventual voiding trial
Maintain escalated flomax dosage
-
-
Date of Service: July 20, 2024
CC / HPI / ROS
-
Chief Complaint:
PAD
History of Present Illness:
CKD stage IV with a PAD ischemic limb potential requiring vascular intervention
DONALD/Cr at 2
s/p RLE bypass
BP stable off pressors
hinton in place for retention
Review of Systems:.
No chest pain or shortness of
Confused
Labs
-
Labs:
WBC 9.1 10^3/uL (4.8-10.8) 07/20/24 02:12
RBC 2.61 10^6/uL (4.70-6.10) L 07/20/24 02:12
Hgb 8.0 g/dL (13.0-18.0) L 07/20/24 02:12
Hct 23.2 % (39.0-52.0) L 07/20/24 02:12
Plt Count 174 10^3/uL (130-400) 07/20/24 02:12
Sodium 142 mmol/L (135-145) 07/20/24 02:12
Potassium 4.2 mmol/L (3.5-5.1) 07/20/24 02:12
Chloride 112 mmol/L (98-107) H 07/20/24 02:12
Carbon Dioxide 26 mmol/L (22-30) 07/20/24 02:12
BUN 36 mg/dl (9-20) H 07/20/24 02:12
Creatinine 2.1 mg/dL (0.7-1.3) H 07/20/24 02:12
eGFR 30.85 07/20/24 02:12
Glucose 87 mg/dl (70-99) 07/20/24 02:12
Calcium 8.7 mg/dl (8.4-10.2) 07/20/24 02:12
Phosphorus 2.8 mg/dl (2.5-4.5) 07/18/24 06:30
Albumin 3.7 g/dl (3.5-5.0) 07/08/24 18:34
Physical Exam
-
Vital Signs:
Vital Signs
Temp Pulse Resp BP Pulse Ox
98.4 F 67 22 117/54 94
07/20/24 00:10 07/20/24 01:15 07/20/24 01:15 07/20/24 01:00 07/19/24 22:00
Cardiovascular:: Regular rate and rhythm
Respiratory:: Bilateral: Coarse
Lung Excursion:: Normal
Abdomen:: Nontender and Soft
Bowel Sounds:: Normal
Extremity Edema:: None: Bilateral:
Hinton Catheter: Yes
--- NOTE | 2024-07-20 08:16 | W.PN.INTV ---
Today's Communication / Plan
Recommendations
Up OOB as tolerated
Right lower extremity postoperative management per vascular surgery
Goal BG 140�180
Pain control
Encourage incentive spirometer
Maintain MAP >65
Patient is stable for downgrade out of ICU to telemetry. No additional recommendations at this time. Fire Extinguisher Mechanic/Pulmonary service will now sign off. Please reconsult if there are any additional questions/concerns, or if patient's respiratory
status deteriorates.
Assessment
-
Assessment: 84-year-old male active tobacco smoker with a past medical history of PVD, hypertension, hypercholesterolemia, carotid artery stenosis s/p left carotid artery stenting + right CEA, CAD with history of DE s/p stenting to RCA + LCx,
nonalcoholic fatty liver disease, statin intolerance, ichthyosis vulgaris, BPH with LUTS, Slim's thyroiditis, anemia, DM type II, CKD and history of shingles with postherpetic trigeminal neuralgia who presents with right lower extremity pain.
Patient has right foot pain at rest. There was no acute change but his right foot increasingly became more painful which is what prompted him to come to the hospital. Patient follows with Dr. Fay in the office. CT abdominal aorta with runoff
obtained on 07/09/2024 showed heavily calcified plaque near the origin of the right external iliac artery with >75% stenosis with 50% stenosis within the left common iliac artery. Vascular surgery was consulted and surgical revascularization was
discussed. Due to his history of CKD, nephrology was consulted. His creatinine did rise to 2.4 on 07/14, although did improve to 2.1�2.3. The patient had periods of confusion which was chronic, and neurology was consulted. Patient agreed to right
lower extremity arteriogram. On 07/15/2024, patient underwent right lower extremity tear gram with right external iliac artery balloon angioplasty and stent placement. Patient tolerated the procedure. Unfortunately patient continued to endorse
right lower extremity pain, hence he was brought back to the OR on 07/18/2024 and underwent a right femoral endarterectomy/profundoplasty with saphenous vein patch angioplasty, with right femoral to below the knee popliteal artery bypass with
reversed ipsilateral greater saphenous vein conduit. There were no complications, and patient was transferred to the ICU postoperatively for further care. Fire Extinguisher Mechanic services consulted for additional management/recommendations.
Chronic conditions ONLINE ACTIVIST: PVD, hypercholesterolemia, hypertension, history of rosacea, tobacco use disorder, CAD s/p stent, carotid artery stenosis s/p left carotid artery stenting + right CEA (2000), history of DE, history of kidney stone s/p
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
postherpetic trigeminal neuralgia, history of CVA, and CKD
Impression:
#Chronic limb threatening ischemia right lower extremity s/p right femoral endarterectomy/profundoplasty with saphenous vein patch angioplasty + right femoral to below the knee popliteal artery bypass with reversed ipsilateral greater saphenous vein
conduit (POD#1)
#Circulatory shock likely due to postoperative anesthesia - now resolved as of the evening of 07/18/2024
#DM type II (uncontrolled: HbA1c 10.3 on 07/09/2024) complicated by hyperglycemia - now euglycemic
#Elevated troponin likely due to demand ischemia due to transient hypotension requiring vasopressors in the setting of known CAD
#Chronic anemia
#CKD
#CAD s/p stenting to LCx + RCA
#Hypertension
#Hypercholesterolemia
#Active tobacco use
#Carotid artery stenosis s/p left carotid artery stenting + right CEA
#Nonalcoholic fatty liver disease
#Statin intolerance
#BPH with LUTS
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
Plan:
Postoperative surgical intensive care unit monitoring
Supplemental oxygen as needed to maintain SpO2 >90-94%
prn nebulized bronchodilators (not currently bronchospastic)
Incentive spirometry encouraged 10x per hour for at least 4 hrs a day
Aspiration precautions
Pain control
Neuro and vascular checks per protocol
Maintain MAP>65
Replete electrolytes with K>4, Mg>2
Maintain euglycemia with goal BG 140-180
Vascular surgery following-correspondence and operative notes reviewed
Transfuse blood products as needed to keep Hb>7g/dL, and plt>50k (given post-operative status)
Although patient has been smoking since he was 17 years old, he does not qualify for lung cancer screening given he is >80 years old
He does not endorse shortness of breath or chronic cough. He is always welcome to see us in the [facility] office for spirometry/PFT testing and to discuss inhalers if he were to become symptomatic
DVT prophylaxis
Early nutrition
Early mobilization
Code status: DNR/DNI
Patient is stable for downgrade out of ICU to telemetry. No additional recommendations at this time. Fire Extinguisher Mechanic/Pulmonary service will now sign off. Thank you for allowing us to be involved in the care of this patient. Please reconsult if there
are any additional questions/concerns, or if patient's respiratory status deteriorates.
Total time spent today was 58 minutes for this encounter. Time includes reviewing laboratory test/imaging results, reviewing pertinent medical records, obtaining and reviewing medical history, performing an appropriate exam, ordering medications,
tests and procedures. Time also includes documentation of this encounter, coordinating patient care and communicating with other healthcare professionals. Total time does not include separately billed tests performed on this date of service.
Subjective Dataa
Subjective Data
Date of Service:
Date of Service: July 20, 2024
Chief Complaint: Fire Extinguisher Mechanic Follow Up
Subjective:
Patient seen and evaluated today at bedside. Still has right-sided foot pain but much better. Heart rate 58, saturating 94% on room air, BP 138/52. He denies chest pain, SOB, nausea, fevers or chills.
Review of Systems
General: Other (Negative unless mentioned above)
Objective Data
Data Reviewed
Vital Signs / I&O / Oxygen:
Vital Signs
Temp Pulse Resp BP Pulse Ox
98.5 F 62 14 157/43 97
07/20/24 08:00 07/20/24 08:00 07/20/24 08:00 07/20/24 08:00 07/20/24 08:25
Intake and Output
07/19/24 07/20/24 07/21/24
06:59 06:59 06:59
Intake Total 887.5 / 967.5 880 / 880
Output Total 500 / 500 2100 / 2100
Balance 387.5 / 467.5 -1220 / -1220
SaO2 97
Nasal Cannula flow liters per 2
minute
Physical Exam
General: Respiratory Distress (negative), Pain (right foot/RLE), Chills (negative) and Sweats (negative)
HEENT: Normocephalic and Anicteric
Cardiovascular: S1-S2 and Peripheral Edema (negative)
Respiratory: Wheeze (negative), Crackles (negative), Rhonchi (negative) and Non-Labored Respirations
GI: Soft, Non Distended, Non Tender and Normal Bowel Sounds
Neurology: AO x 3 and Tremors (negative)
Skin: Warm, Dry, Cyanosis (negative) and Jaundice (negative)
Labs/Micro/Reports
Lab Data
07/20/24 02:12
07/20/24 02:12
[2024-07-20] MEDS: NOVOLOG FLEXPEN-LOW RESISTANCE SC ×3 (08:18→16:24)
[2024-07-20] MEDS: NOVOLOG FLEXPEN 5 UNITS SC ×2 (08:18→16:24)
[2024-07-20] MEDS: VITAMIN D3 (cholecalciferol) 25 MCG PO (08:19)
[2024-07-20] MEDS: SENOKOT-S 1 TABLET PO ×2 (08:19→20:21)
[2024-07-20] MEDS: SODIUM BICARBONATE 1300 MG PO ×2 (08:19→20:22)
[2024-07-20] MEDS: NORVASC 10 MG PO (08:19)
[2024-07-20] MEDS: PLAVIX 75 MG PO (08:19)
[2024-07-20] MEDS: FLOMAX 0.4 MG PO ×2 (08:19→20:20)
[2024-07-20] MEDS: IMDUR (EXTENDED RELEASE) 30 MG PO (08:19)
[2024-07-20] MEDS: PROTONIX 40 MG PO (08:19)
[2024-07-20 08:20] LABS: Glucose - Point of Care 91 mg/dl (70-99)
[2024-07-20] MEDS: LOPRESSOR 50 MG PO ×2 (08:20→20:22)
[2024-07-20] MEDS: LOW STRENGTH ASPIRIN 81 MG PO (08:20)
[2024-07-20] MEDS: PROSCAR 5 MG PO (08:20)
--- NOTE | 2024-07-20 09:02 | PTCARENOTE ---
pt received from previous rn- aox3, forgetful at times. pt able to make needs known, turns and repositions self. right leg incisions with nettie ramila, sites c/d/i. Per vascular pt ok for downgrade from ICU. pt remains with doppler lower ext. pulses.
nsr on monitor, room air. all safety precautions in place, call ennis within reach, bed alarm on.
--- NOTE | 2024-07-20 09:09 | PTCARENOTE ---
pt with short run of SVT, asymptomatic- Dr. Daly at bedside, pt broke out hr in 60s-70s. no new orders.
--- NOTE | 2024-07-20 11:35 | PTCARENOTE ---
pt oob to chair 1 assist, no complaints at this time. pt resting comfortably.
[2024-07-20 12:14] LABS: Glucose - Point of Care 113 mg/dl (70-99)
[2024-07-20] MEDS: NOVOLOG FLEXPEN SC (12:20)
[2024-07-20] MEDS: DULCOLAX 10 MG RECTAL (13:38)
[2024-07-20] MEDS: TYLENOL 650 MG PO (13:39)
[2024-07-20] MEDS: ROXICODONE 5 MG PO (13:40)
--- NOTE | 2024-07-20 14:05 | PTCARENOTE ---
report given to Erika MAYO on 2N, family aware of transfer, pt sent with belongings. pt was oob to chair for approx 3.5 hours.
--- NOTE | 2024-07-20 14:13 | W.PN.HOSP.TC ---
Today's Communication/Plan
-
stable for downgrade to Tele
cont post-op care as per Vascular
PT/OT
blood pressure and glycemic control
Assessment / Plan
Assessment / Plan
Physical Exam
General: NAD
HEENT: Scleral Anicteric MMM No JVD
Pulm: CTABL
Cardio: RRR, S1/S2, II/ systolic murmur
Abd: Soft, NT, ND, BS+
Ext: RLE dressing clean dry intact
Neuro: Alert Conversant Coherent intermittent confusion memory issues noted
Psych: Calm
84M ASCVD diabetes CKDIV Hypothyroidism Rosacea here for PAD critical limb ischemia RLE
PAD
RLE critical limb ischemia
Right lower extremity angiogram/angioplasty with stent placement 07/15/2024
RLE bypass 07/18/24 subsequently transferred to ICU for post-op care requiring pressor support since weaned off
Horticulture Teacher eval appreciated
Vascular eval appreciated stable for downgrade to Tele
Altered mental status intermittent likely secondary to hospital-acquired delirium exacerbated by anesthesia and opiate pain meds
Continue frequent reorientation
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
New Zyprexa at bedtime ordered, mental status improved on zyprexa, cont
IgA Gammopathy Unclear Significance/Etiology
Hematology eval appreciated outpatient follow up recommended
CKD stage IV
At this time reluctant about dialysis
Nephro eval appreciated
contrast IVF ppx as per nephro since completed
Hypertension
Amlodipine Metoprolol held while on pressor post-op since resumed
Diabetes type 2
sliding scale
Novolog 5U
Lantus 16U
monitor and titrate insulin regimen as necessary
Moderate AAS/MR
Outpatient cardiology follow-up
BPH
Continue Flomax and finasteride
Flomax dose increased as per Nephro
Stage 1 bilateral heel pressure injury
cont local wound care
07/15/24 AOx3 at capacity to make his own decisions. Patient has indicated that, if unable to make his own decisions, he would like his children (sons Leonidas and Tremayne and daughter Neisha) to make his decisions for him.
DVT ppx
DNR
Medically Stable for downgrade to Tele
Discussed with patient and patient's daughter Neisha
I spent a total of 40 minutes with the patient or on the floor. More than 50% of this time involved counseling and coordination of care.
Anticipated Discharge: 24 - 48 hours
Subjective/Interval History
-
Date of Service: July 20, 2024
no acute distress. appears comfortable. Some confusion remains present, intermittent
Objective Data
-
Labs:
Laboratory Results
07/20/24
02:12
WBC 9.1
Hgb 8.0 L
Hct 23.2 L
Plt Count 174
Sodium 142
Potassium 4.2
Chloride 112 H
Carbon Dioxide 26
BUN 36 H
Creatinine 2.1 H
Glucose 87
Calcium 8.7
Vital Signs:
Vital Signs
Temp Pulse Resp BP Pulse Ox
98.4 F 63 16 147/57 98
07/20/24 14:05 07/20/24 14:05 07/20/24 14:05 07/20/24 14:05 07/20/24 14:05
I&O
07/19/24 07/20/24 07/21/24
06:59 06:59 06:59
Intake Total 887.5 / 967.5 880 / 880
Output Total 500 / 500 2100 / 2100 1000 / 1000
Balance 387.5 / 467.5 -1220 / -1220 -1000 / -1000
[2024-07-20 15:38] LABS: Glucose - Point of Care 111 mg/dl (70-99)
[2024-07-20] MEDS: HEPARIN 5000 UNITS SC (20:22)
[2024-07-20 21:41] LABS: Glucose - Point of Care 192 mg/dl (70-99)
[2024-07-20] MEDS: ZYPREXA 2.5 MG PO (22:05)
[2024-07-20] MEDS: LANTUS 0.16 UNITS SC (22:05)
[2024-07-21] VITALS (7 sets, daily range): BP systolic 123–144; BP diastolic 44–94
--- NOTE | 2024-07-21 06:53 | W.PN.VS ---
Today's Communication / Plan
-
as above
Assessment/Plan
-
Postop day 3 right FEA and lower extremity bypass with vein
Plan:
OOB to chair with progression to ambulation as tolerated
PT/OT
Will defer to primary team for management of Boudreaux catheter as it was placed for retention
Continue aspirin 81 mg p.o. daily, patient is allergic to statins
Continue neurovascular checks
Continue to encourage incentive spirometry
Subjective Data
-
Date of Service: July 21, 2024
No acute events, no complaints today
Objective Data
-
Vital Signs
Temp Pulse Resp BP Pulse Ox
98.7 F 60 16 143/46 96
07/21/24 03:05 07/21/24 03:05 07/21/24 03:05 07/21/24 03:05 07/21/24 03:05
Intake and Output
07/19/24 07/20/24 07/21/24
06:59 06:59 06:59
Intake Total 887.5 / 967.5 880 / 880
Output Total 500 / 500 2100 / 2100 1800 / 1800
Balance 387.5 / 467.5 -1220 / -1220 -1800 / -1800
Intake:
Oral fluids 720 / 720
IV fluids (Total) 887.5 / 967.5 160 / 160
LEVO 7.5 / 7.5
Nss 1,000 ml @ 80 mls/hr IV . 880 / 960 160 / 160
[id number] BURT Rx#:[id number]
Output:
Urine, Boudreaux 500 / 500 1700 / 1700 1800 / 1800
Straight cath output 400 / 400
Other:
Number of approximated LARGE 1
amounts of urine
Calcium 8.7 mg/dl (8.4-10.2) 07/20/24 02:12
Phosphorus 2.8 mg/dl (2.5-4.5) 07/18/24 06:30
Magnesium 1.6 mg/dl (1.6-2.3) 07/20/24 02:12
Total Bilirubin 0.4 mg/dl (0.2-1.3) 07/08/24 18:34
AST 17 U/L (17-59) 07/08/24 18:34
ALT 15 U/L (0-50) 07/08/24 18:34
Alkaline Phosphatase 59 U/L (38-126) 07/08/24 18:34
Total Protein 6.8 g/dl (6.3-8.2) 07/08/24 18:34
Albumin 3.7 g/dl (3.5-5.0) 07/08/24 18:34
Physical Exam
-
NAD
incisions c/d/i
triphasic PT signal
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
[2024-07-21 07:49] LABS: Glucose - Point of Care 61 mg/dl (70-99)
[2024-07-21 08:01] LABS: Hematocrit 23.8 % (39.0-52.0); Mean Corp Hgb Conc. 33.6 g/dL (33.0-37.0); Mean Corpuscular Hgb 30.8 pg (27.0-31.0); Mean Corpuscular Volume 91.5 fL (80.0-94.0); Mean Platelet Volume 12.4 fL (7.4-10.4); Platelet Count 194 10^3/uL (130-400); White Blood Cell Count 7.9 10^3/uL (4.8-10.8)
[2024-07-21 08:10] LABS: Glucose - Point of Care 66 mg/dl (70-99)
[2024-07-21] MEDS: NOVOLOG FLEXPEN SC (08:11)
[2024-07-21] MEDS: NOVOLOG FLEXPEN-LOW RESISTANCE SC (08:11)
[2024-07-21] MEDS: PROTONIX 40 MG PO (08:12)
[2024-07-21] MEDS: IMDUR (EXTENDED RELEASE) 30 MG PO (08:12)
[2024-07-21] MEDS: LOW STRENGTH ASPIRIN 81 MG PO (08:12)
[2024-07-21] MEDS: PROSCAR 5 MG PO (08:12)
[2024-07-21] MEDS: SODIUM BICARBONATE 1300 MG PO ×2 (08:12→20:21)
[2024-07-21] MEDS: FLOMAX 0.4 MG PO ×2 (08:12→20:22)
[2024-07-21] MEDS: SENOKOT-S 1 TABLET PO ×2 (08:13→20:21)
[2024-07-21] MEDS: VITAMIN D3 (cholecalciferol) 25 MCG PO (08:13)
[2024-07-21] MEDS: NORVASC 10 MG PO (08:13)
[2024-07-21] MEDS: LOPRESSOR 50 MG PO ×2 (08:13→20:21)
[2024-07-21] MEDS: PLAVIX 75 MG PO (08:13)
[2024-07-21 08:14] LABS: Blood Urea Nitrogen 32 mg/dl (9-20); Calcium 8.5 mg/dl (8.4-10.2); Carbon Dioxide 25 mmol/L (22-30); Chloride 111 mmol/L (98-107); Estimated Creatinine Clearance 23 ml/min; Glucose 41 mg/dl (70-99); Potassium 4.2 mmol/L (3.5-5.1); Sodium 140 mmol/L (135-145); eGFR 27.66
[2024-07-21] MEDS: HEPARIN 5000 UNITS SC ×2 (08:15→20:22)
[2024-07-21 08:42] LABS: Glucose - Point of Care 96 mg/dl (70-99)
--- NOTE | 2024-07-21 10:25 | W.PN.NEPH.PH ---
Today's Communication / Plan
-
Follow BMP
Creatinine stable at 2.3
Blood pressure is currently well-controlled on antihypertensive
Assessment/Plan
-
Assessment
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
Peripheral arterial disease
Hypertension
Diabetes mellitus type 2
Tobacco use
Moderate , MR
Right leg pain, RLE bypass 07/18
Plan
Creatinine stable at ~ 2.3
Nonoliguric
Hemodynamically stable on antihypertensives
follow BMP
eventual voiding trial
Maintain escalated flomax dosage
-
-
Date of Service: July 21, 2024
CC / HPI / ROS
-
Chief Complaint:
PAD
History of Present Illness:
CKD stage IV with a PAD ischemic limb potential requiring vascular intervention
DONALD/Cr at 2.3
s/p RLE bypass
BP stable on antihypertensive
hinton in place for retention
Review of Systems:.
No chest pain or shortness of
Confused
Labs
-
Labs:
WBC 7.9 10^3/uL (4.8-10.8) 07/21/24 06:26
RBC 2.60 10^6/uL (4.70-6.10) L 07/21/24 06:26
Hgb 8.0 g/dL (13.0-18.0) L 07/21/24 06:26
Hct 23.8 % (39.0-52.0) L 07/21/24 06:26
Plt Count 194 10^3/uL (130-400) 07/21/24 06:26
Sodium 140 mmol/L (135-145) 07/21/24 06:26
Potassium 4.2 mmol/L (3.5-5.1) 07/21/24 06:26
Chloride 111 mmol/L (98-107) H 07/21/24 06:26
Carbon Dioxide 25 mmol/L (22-30) 07/21/24 06:26
BUN 32 mg/dl (9-20) H 07/21/24 06:26
Creatinine 2.3 mg/dL (0.7-1.3) H 07/21/24 06:26
eGFR 27.66 07/21/24 06:26
Glucose 41 mg/dl (70-99) L* 07/21/24 06:26
Calcium 8.5 mg/dl (8.4-10.2) 07/21/24 06:26
Phosphorus 2.8 mg/dl (2.5-4.5) 07/18/24 06:30
Albumin 3.7 g/dl (3.5-5.0) 07/08/24 18:34
Physical Exam
-
Vital Signs:
Vital Signs
Temp Pulse Resp BP Pulse Ox
98 F 63 18 144/94 98
07/21/24 07:00 07/21/24 08:13 07/21/24 07:00 07/21/24 08:13 07/21/24 10:21
Cardiovascular:: Regular rate and rhythm
Respiratory:: Bilateral: Coarse
Lung Excursion:: Normal
Abdomen:: Nontender and Soft
Bowel Sounds:: Normal
Extremity Edema:: None: Bilateral:
Hinton Catheter: Yes
[2024-07-21 10:53] LABS: Glucose - Point of Care 178 mg/dl (70-99)
--- NOTE | 2024-07-21 11:04 | PTCARENOTE ---
Pts hinton pulled at 1100, urinal provided and pt educated on need for post void measurement and PVR scan. Pt due to void by 1700.
[2024-07-21 12:59] LABS: Glucose - Point of Care 195 mg/dl (70-99)
[2024-07-21] MEDS: NOVOLOG FLEXPEN-LOW RESISTANCE 1 UNITS SC ×2 (12:59→17:59)
[2024-07-21 17:14] LABS: Glucose - Point of Care 195 mg/dl (70-99)
[2024-07-21] MEDS: ZYPREXA 2.5 MG PO (20:22)
[2024-07-21] MEDS: TYLENOL 650 MG PO (20:30)
[2024-07-21 21:46] LABS: Glucose - Point of Care 249 mg/dl (70-99)
[2024-07-21] MEDS: LANTUS 0.16 UNITS SC (21:50)
[2024-07-22] VITALS (7 sets, daily range): BP systolic 139–162; BP diastolic 47–66; PULSE 62; O2SAT 99; BMI 23.5; BMI 23.4
[2024-07-22 02:55] LABS: Glucose - Point of Care 298 mg/dl (70-99)
[2024-07-22 07:23] LABS: Glucose - Point of Care 249 mg/dl (70-99)
[2024-07-22 07:40] LABS: Blood Urea Nitrogen 38 mg/dl (9-20); Calcium 8.4 mg/dl (8.4-10.2); Carbon Dioxide 26 mmol/L (22-30); Chloride 108 mmol/L (98-107); Estimated Creatinine Clearance 23 ml/min; Glucose 240 mg/dl (70-99); Potassium 4.7 mmol/L (3.5-5.1); Sodium 138 mmol/L (135-145); eGFR 27.66
[2024-07-22 07:45] LABS: Hematocrit 24.9 % (39.0-52.0); Hemoglobin 8.4 g/dL (13.0-18.0); Mean Corp Hgb Conc. 33.7 g/dL (33.0-37.0); Mean Corpuscular Hgb 31.2 pg (27.0-31.0); Mean Corpuscular Volume 92.6 fL (80.0-94.0); Mean Platelet Volume 12.4 fL (7.4-10.4); Platelet Count 205 10^3/uL (130-400); Red Blood Cell Count 2.69 10^6/uL (4.70-6.10); Red Cell Dist. Width 15.8 % (11.5-14.5); White Blood Cell Count 7.1 10^3/uL (4.8-10.8)
[2024-07-22] MEDS: PROTONIX 40 MG PO (08:16)
[2024-07-22] MEDS: LOPRESSOR 50 MG PO ×2 (08:16→20:10)
[2024-07-22] MEDS: IMDUR (EXTENDED RELEASE) 30 MG PO (08:16)
[2024-07-22] MEDS: FLOMAX 0.4 MG PO ×2 (08:17→20:11)
[2024-07-22] MEDS: NORVASC 10 MG PO (08:18)
[2024-07-22] MEDS: SODIUM BICARBONATE 1300 MG PO ×2 (08:18→20:11)
[2024-07-22] MEDS: PLAVIX 75 MG PO (08:18)
[2024-07-22] MEDS: LOW STRENGTH ASPIRIN 81 MG PO (08:18)
[2024-07-22] MEDS: PROSCAR 5 MG PO (08:18)
[2024-07-22] MEDS: SENOKOT-S 1 TABLET PO ×2 (08:18→20:10)
[2024-07-22] MEDS: VITAMIN D3 (cholecalciferol) 25 MCG PO (08:19)
[2024-07-22] MEDS: HEPARIN 5000 UNITS SC ×2 (08:19→20:11)
[2024-07-22] MEDS: NOVOLOG FLEXPEN-LOW RESISTANCE 2 UNITS SC (08:22)
--- NOTE | 2024-07-22 08:57 | W.PN.UPDATE ---
Update Note
Progress Note Update
84-year-old male history of PAD, hypertension, HLD, CAD s/p left carotid artery stenting and right CEA, CAD with history of [place] s/p RCA/LCx PCI, nonalcoholic fatty liver disease with statin intolerance, ichthyosis vulgaris, BPH with LUTS,
Slim's, diabetes type 2, CKD
Right chronic limb threatening ischemia
S/p right femoral endarterectomy/profundoplasty with saphenous vein patch angioplasty, right femoral to below the knee popliteal artery bypass with reversed ipsilateral greater saphenous vein conduit, postop day 4
For vascular surgery out of bed to chair for progression to ambulation
PT OT
Continue aspirin daily
Apparently allergic to statins
Encourage incentive spirometer use
Vascular surgery recs
Altered mental status intermittent likely secondary to hospital-acquired delirium exacerbated by anesthesia and opiate pain meds
Continue frequent reorientation
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
New Zyprexa at bedtime ordered, mental status improved on zyprexa, cont
IgA Gammopathy Unclear Significance/Etiology
Hematology eval appreciated outpatient follow up recommended
CKD stage IV
At this time reluctant about dialysis
Nephro eval appreciated
contrast IVF ppx as per nephro since completed
Hypertension
Amlodipine Metoprolol held while on pressor post-op since resumed
Diabetes type 2
Continue ssi, on short/long acting insulin, Accu-Cheks, goal blood glucose 140-180, carb controlled diet
BPH
Continue Flomax and finasteride
Flomax dose increased as per Nephro
Stage 1 bilateral heel pressure injury
cont local wound care
Sund/Hospital acquiried delirium
Contiue zyprexa
Penidng SNF
[2024-07-22 11:25] LABS: Glucose - Point of Care 259 mg/dl (70-99)
[2024-07-22] MEDS: NOVOLOG FLEXPEN-LOW RESISTANCE 3 UNITS SC ×2 (11:31→16:56)
--- NOTE | 2024-07-22 11:33 | W.PN.VS ---
Today's Communication / Plan
-
See below.
Assessment/Plan
-
Postop day 4 right FEA and lower extremity bypass with vein
Plan:
OOB to chair with progression to ambulation as tolerated
PT/OT
Will defer to primary team for management of Boudreaux catheter as it was placed for retention
Continue aspirin 81 mg p.o. daily, patient is allergic to statins
Continue neurovascular checks
Continue to encourage incentive spirometry
Recommend elevation to aid in recovery of right lower extremity postoperative edema
Follow-up placed in discharge instructions, we will sign off please call with questions or concerns
Subjective Data
-
Date of Service: July 22, 2024
Patient seen and examined at chairside, reports right foot pain is vastly improved from pre-op. Does endorse some swelling at right leg but otherwise has no compliants.
Objective Data
-
Vital Signs
Temp Pulse Resp BP Pulse Ox
98.7 F 62 16 162/62 97
07/22/24 07:23 07/22/24 08:16 07/22/24 07:23 07/22/24 08:16 07/22/24 11:16
Intake and Output
07/21/24 07/22/24 07/23/24
06:59 06:59 06:59
Intake Total 3650 / 0
Output Total 1800 / 1800 2029
Balance -1800 / -1800 1620 / 1620
Intake:
Oral fluids 3650 / 3650
Output:
Urine, Boudreaux 1800 / 1800 2029
Lab Results
07/22/24 06:13
07/22/24 06:13
Calcium 8.4 mg/dl (8.4-10.2) 07/22/24 06:13
Phosphorus 2.8 mg/dl (2.5-4.5) 07/18/24 06:30
Magnesium 1.6 mg/dl (1.6-2.3) 07/20/24 02:12
Total Bilirubin 0.4 mg/dl (0.2-1.3) 07/08/24 18:34
AST 17 U/L (17-59) 07/08/24 18:34
ALT 15 U/L (0-50) 07/08/24 18:34
Alkaline Phosphatase 59 U/L (38-126) 07/08/24 18:34
Total Protein 6.8 g/dl (6.3-8.2) 07/08/24 18:34
Albumin 3.7 g/dl (3.5-5.0) 07/08/24 18:34
Physical Exam
-
AAO x 3
No tachypnea on room air
No tachycardia
Abdomen soft
Right leg staple sites CDI well-approximated, palpable behind knee bypass graft pulse, +1 RLE edema
Right foot foot warm with excellent triphasic PT Doppler signal
--- NOTE | 2024-07-22 16:06 | W.PN.NEPH.PH ---
Today's Communication / Plan
-
follow labs
Assessment/Plan
-
Assessment
CKD 4 (2.0)
Peripheral arterial disease
Hypertension
Diabetes mellitus type 2
Tobacco use
Moderate , MR
Right leg pain, RLE bypass 07/18
Plan
Creatinine stable at ~ 2.3
Nonoliguric with hinton, replaced for retention
Hemodynamically stable on antihypertensives
Maintain escalated flomax dosage
met acidosis stable on po bicarb
monitor daily wts
follow labs
-
-
Date of Service: July 22, 2024
CC / HPI / ROS
-
Chief Complaint:
PAD
History of Present Illness:
CKD stage IV with a PAD ischemic limb potential requiring vascular intervention
DONALD/Cr at 2.3-no change
s/p RLE bypass
BP stable on antihypertensive
hinton in place for retention-failed VT
Review of Systems:.
No chest pain or shortness of
Confused, able to have conversation
Labs
-
Labs:
WBC 7.1 10^3/uL (4.8-10.8) 07/22/24 06:13
RBC 2.69 10^6/uL (4.70-6.10) L 07/22/24 06:13
Hgb 8.4 g/dL (13.0-18.0) L 07/22/24 06:13
Hct 24.9 % (39.0-52.0) L 07/22/24 06:13
Plt Count 205 10^3/uL (130-400) 07/22/24 06:13
Sodium 138 mmol/L (135-145) 07/22/24 06:13
Potassium 4.7 mmol/L (3.5-5.1) 07/22/24 06:13
Chloride 108 mmol/L (98-107) H 07/22/24 06:13
Carbon Dioxide 26 mmol/L (22-30) 07/22/24 06:13
BUN 38 mg/dl (9-20) H 07/22/24 06:13
Creatinine 2.3 mg/dL (0.7-1.3) H 07/22/24 06:13
eGFR 27.66 07/22/24 06:13
Glucose 240 mg/dl (70-99) H 07/22/24 06:13
Calcium 8.4 mg/dl (8.4-10.2) 07/22/24 06:13
Phosphorus 2.8 mg/dl (2.5-4.5) 07/18/24 06:30
Albumin 3.7 g/dl (3.5-5.0) 07/08/24 18:34
Physical Exam
-
Vital Signs:
Vital Signs
Temp Pulse Resp BP Pulse Ox
97.8 F 61 18 151/55 100
07/22/24 11:46 07/22/24 11:46 07/22/24 11:46 07/22/24 11:46 07/22/24 11:46
Cardiovascular:: Regular rate and rhythm
Respiratory:: Bilateral: CTA
Lung Excursion:: Normal
Abdomen:: Nontender and Soft
Extremity Edema:: None: Bilateral: (trace on right leg)
Hinton Catheter: Yes
[2024-07-22 16:31] LABS: Glucose - Point of Care 296 mg/dl (70-99)
--- NOTE | 2024-07-22 16:43 | W.PN.HOSP.TC ---
Addendum entered and electronically signed by Pankaj Garcia MD 07/23/24 14:23:
84-year-old male history of PAD, hypertension, HLD, CAD s/p left carotid artery stenting and right CEA, CAD with history of [place] s/p RCA/LCx PCI, nonalcoholic fatty liver disease with statin intolerance, ichthyosis vulgaris, BPH with LUTS,
Slim's, diabetes type 2, CKD
Right chronic limb threatening ischemia
S/p right femoral endarterectomy/profundoplasty with saphenous vein patch angioplasty, right femoral to below the knee popliteal artery bypass with reversed ipsilateral greater saphenous vein conduit, postop day 4
For vascular surgery out of bed to chair for progression to ambulation
PT OT
Continue aspirin daily
Apparently allergic to statins
Encourage incentive spirometer use
Vascular surgery recs
Altered mental status intermittent likely secondary to hospital-acquired delirium exacerbated by anesthesia and opiate pain meds
Continue frequent reorientation
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
New Zyprexa at bedtime ordered, mental status improved on zyprexa, cont
IgA Gammopathy Unclear Significance/Etiology
Hematology eval appreciated outpatient follow up recommended
CKD stage IV
At this time reluctant about dialysis
Nephro eval appreciated
contrast IVF ppx as per nephro since completed
Hypertension
Amlodipine Metoprolol held while on pressor post-op since resumed
Diabetes type 2
Continue ssi, on short/long acting insulin, Accu-Cheks, goal blood glucose 140-180, carb controlled diet
BPH
Continue Flomax and finasteride
Flomax dose increased as per Nephro
Stage 1 bilateral heel pressure injury
cont local wound care
/Hospital acquiried delirium
Contiue zyprexa
Penidng SNF
Original Note:
Today's Communication/Plan
-
PT/OT updated evaluations
Awaiting bed at SNF
Assessment / Plan
Assessment / Plan
Impression
Patient is a 84M with past medical history of ASCVD, hypothyroidism, CKD stage IV,Diabetes, rosacea, history of shingles with postherpetic neuralgia who presented with right lower extremity pain. He had pain in his right foot at rest and it became
increasingly painful which prompted him to come to the hospital. He follows up with Dr. Fay in the office.
CT abdomen aorta with runoff obtained on 07/09/2024 showed heavily calcified plaque near the origin of right external Ilac artery with greater than 75% stenosis with 50% stenosis with in the left common Ilac artery.
Vascular surgery was consulted and surgical revascularization was done after clearance from nephro due to rising creatinine up to 2.4 on 07/14.
Patient underwent right external iliac artery balloon angioplasty and stent placement, patient had persistent pain,back to the OR on 07/18/2024 and underwent a right femoral endarterectomy/profundoplasty with saphenous vein patch angioplasty, with
right femoral to below the knee popliteal artery bypass with reversed ipsilateral greater saphenous vein conduit.
No complications, ICU stay postoperatively for a day as patient was on vasopressor support
Shifted back to 2 N. had an episode of agitation/sundowning/delirium over the weekend. Started on Zyprexa 2.5 mg at bedtime responded well.
PT OT recommendations for SNF, awaiting bed
Assessment/plan
#Acute limb ischemia of right lower extremity
S/p right femoral endarterectomy/profundoplasty with saphenous vein patch angioplastywith saphenous vein patch angioplasty + right femoral to below the knee popliteal artery bypass with reversed ipsilateral greater saphenous vein conduit (POD#4)
Stitches look well, healing fine
Pedal pulses palpable
PT/OT following, continue neurovascular checks, continue encouraging incentive spirometry
Vascular surgery consult appreciated-recommend elevation to aid in recovery of right lower extremity postop edema-will sign off
#CKD stage IV
Acute urinary retention, nephro evaluation appreciated, Boudreaux's was placed for acute urinary retention
Trial of void failed on 05/18/25-currently has Boudreaux's in place, creatinine stable at 2.3
Hemodynamically stable
Another voiding trial
Monitor labs and blood pressure
#Delirium/sundowning
Patient had altered mental status intermittently over the weekend most likely secondary to hospital-acquired delirium, exacerbated by anesthesia and opioid medications
MRI without acute abnormalities-chronic infarcts noted-underlying vascular dementia
Zyprexa 2.5 mg was started which has been helpful
Patient and family said they have been feeling fine with Zyprexa with no further agitation episodes
#Other medical conditions
Nonischemic myocardial injury following vascular intervention/bypass-troponin trended to peak 0.669 since trended down,consistently chest pain free throughout event
Cardio eval appreciated Stable from a cardiac standpoint status-post right femoral bypass, outpt cardio follow up recommended
IgA Gammopathy Unclear Significance/Etiology------hematology eval appreciated outpatient follow up recommended
Hypertension-cont Amlodipine Metoprolol with holding parameters
Diabetes type 2-sliding scale,Novolog 5U discontinued d/t hypoglycemia-Lantus 16U-monitor and titrate insulin regimen as necessary
Moderate AAS/MR-Outpatient cardiology follow-up
BPH---Continue Flomax and finasteride,Flomax dose increased as per Nephro, cont
Stage 1 bilateral heel pressure injury-cont local wound care
Updated evaluations by PT/OT-recommended SNF-case management aware awaiting bed at SNF-
DVT ppx heparin
DNR
Anticipated Discharge: 24 - 48 hours
Subjective/Interval History
-
Date of Service: July 22, 2024
Patient feeling well, sitting comfortably enjoying breakfast with his family, no reported sundowning/agitation overnight
Feels like he was receiving less calories than he would like to eat
Objective Data
-
Labs:
Laboratory Results
07/22/24
06:13
WBC 7.1
Hgb 8.4 L
Hct 24.9 L
Plt Count 205
Sodium 138
Potassium 4.7
Chloride 108 H
Carbon Dioxide 26
BUN 38 H
Creatinine 2.3 H
Glucose 240 H
Calcium 8.4
Vital Signs:
Vital Signs
Temp Pulse Resp BP Pulse Ox
98.2 F 68 16 153/66 100
07/22/24 15:05 07/22/24 15:05 07/22/24 15:05 07/22/24 15:05 07/22/24 15:05
I&O
07/21/24 07/22/24 07/23/24
06:59 06:59 06:59
Intake Total 3650 / 0
Output Total 1800 / 1800 2029
Balance -1800 / -1800 1620 / 1620
Review of Systems
-
All other systems: Reviewed and negative
Physical Exam
-
General: Well Developed, Well Nourished and No Apparent Distress
Respiratory: Clear to Auscultation; Negative Wheezes, Rales or Rhonchi
Cardiac: Regular Rhythm, S1/S2 and Other (Systolic murmur at left lower sternal border, pale appearing)
GI: Soft, Nontender, Nondistended and Normal Bowel Sounds
Musculoskeletal: No Clubbing, No Cyanosis, No Edema and Other (Right leg slightly swollen as compared to left given the recent right FEA and lower extremity bypass with vein, pedal pulses palpable, posterior tibial pulses palpable, incisions healing
well)
Skin: Warm and Dry
Neuro: Awake, Oriented and No Motor Deficits
Psych: Calm
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
[2024-07-22] MEDS: LANTUS 0.16 UNITS SC (22:22)
[2024-07-22 22:23] LABS: Glucose - Point of Care 234 mg/dl (70-99)
[2024-07-22] MEDS: ZYPREXA 2.5 MG PO (22:23)
[2024-07-23 03:10] VITALS: BP 147/57
[2024-07-23 06:52] LABS: % Basophils 0.8 % (0-2); % Eosinophils 2.2 % (0-6); % Immature Granulocytes 1.3 % (0-0.5); % Lymphocytes 24.5 % (20.5-51.1); % Monocytes 9.1 % (1.7-9.3); % Neutrophils 62.1 % (42.2-75.2); Absolute Basophils 0.1 10^3/uL (0-0.2); Absolute Eosinophils 0.2 10^3/uL (0-0.7); Absolute Immature Granulocytes 0.1 10^3/uL (0-0.05); Absolute Lymphocytes 1.9 10^3/uL (1.2-3.4); Absolute Monocytes 0.7 10^3/uL (0.1-0.6); Absolute Neutrophils 4.8 10^3/uL (1.4-6.5); Hematocrit 26.5 % (39.0-52.0); Hemoglobin 8.8 g/dL (13.0-18.0); Mean Corp Hgb Conc. 33.2 g/dL (33.0-37.0); Mean Corpuscular Hgb 30.4 pg (27.0-31.0); Mean Corpuscular Volume 91.7 fL (80.0-94.0); Mean Platelet Volume 11.9 fL (7.4-10.4); Nucleated Red Blood Cells % 0 % (-); Platelet Count 239 10^3/uL (130-400); Red Blood Cell Count 2.89 10^6/uL (4.70-6.10); Red Cell Dist. Width 15.3 % (11.5-14.5); White Blood Cell Count 7.7 10^3/uL (4.8-10.8)
--- NOTE | 2024-07-23 07:02 | W.PN.HOSP.TC ---
Addendum entered and electronically signed by Pankaj Garcia MD 07/23/24 14:24:
84-year-old male history of PAD, hypertension, HLD, CAD s/p left carotid artery stenting and right CEA, CAD with history of [place] s/p RCA/LCx PCI, nonalcoholic fatty liver disease with statin intolerance, ichthyosis vulgaris, BPH with LUTS,
Slim's, diabetes type 2, CKD
Right chronic limb threatening ischemia
S/p right femoral endarterectomy/profundoplasty with saphenous vein patch angioplasty, right femoral to below the knee popliteal artery bypass with reversed ipsilateral greater saphenous vein conduit, postop day 4
For vascular surgery out of bed to chair for progression to ambulation
PT OT
Continue aspirin daily
Apparently allergic to statins
Encourage incentive spirometer use
Vascular surgery recs
Altered mental status intermittent likely secondary to hospital-acquired delirium exacerbated by anesthesia and opiate pain meds
Continue frequent reorientation
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
New Zyprexa at bedtime ordered, mental status improved on zyprexa, cont
IgA Gammopathy Unclear Significance/Etiology
Hematology eval appreciated outpatient follow up recommended
CKD stage IV
At this time reluctant about dialysis
Nephro eval appreciated
contrast IVF ppx as per nephro since completed
Hypertension
Amlodipine Metoprolol held while on pressor post-op since resumed
Diabetes type 2
Continue ssi, on short/long acting insulin, Accu-Cheks, goal blood glucose 140-180, carb controlled diet
BPH
Continue Flomax and finasteride
Flomax dose increased as per Nephro
Stage 1 bilateral heel pressure injury
cont local wound care
/Hospital acquiried delirium
Contiue zyprexa
Penidng SNF
Original Note:
Today's Communication/Plan
-
Plan discharge to SNF
Assessment / Plan
Assessment / Plan
Impression
Patient is a 84M with past medical history of ASCVD, hypothyroidism, CKD stage IV,Diabetes, rosacea, history of shingles with postherpetic neuralgia who presented with right lower extremity pain. He had pain in his right foot at rest and it became
increasingly painful which prompted him to come to the hospital. He follows up with Dr. Fay in the office.
CT abdomen aorta with runoff obtained on 07/09/2024 showed heavily calcified plaque near the origin of right external Ilac artery with greater than 75% stenosis with 50% stenosis with in the left common Ilac artery.
Vascular surgery was consulted and surgical revascularization was done after clearance from nephro due to rising creatinine up to 2.4 on 07/14.
Patient underwent right external iliac artery balloon angioplasty and stent placement, patient had persistent pain,back to the OR on 07/18/2024 and underwent a right femoral endarterectomy/profundoplasty with saphenous vein patch angioplasty, with
right femoral to below the knee popliteal artery bypass with reversed ipsilateral greater saphenous vein conduit.
No complications, ICU stay postoperatively for a day as patient was on vasopressor support
Shifted back to 2 N. had an episode of agitation/sundowning/delirium over the weekend. Started on Zyprexa 2.5 mg at bedtime responded well.
PT OT recommendations for SNF, awaiting bed
Assessment/plan
#Acute limb ischemia of right lower extremity
S/p right femoral endarterectomy/profundoplasty with saphenous vein patch angioplastywith saphenous vein patch angioplasty + right femoral to below the knee popliteal artery bypass with reversed ipsilateral greater saphenous vein conduit (POD#5)
Stitches look well, healing fine
Pedal pulses palpable
PT/OT following, recommended SNF
Vascular surgery consult appreciated-recommend elevation to aid in recovery of right lower extremity postop edema-will sign off
#CKD stage IV
Acute urinary retention, nephro evaluation appreciated, Boudreaux's was placed for acute urinary retention
Trial of void failed on 07/21/24-currently has Boudreaux's in place, creatinine stable at 2.3
Hemodynamically stable
Patient to follow-up with his urologist regarding acute urinary retention and Boudreaux's
#Delirium/sundowning
Patient had altered mental status intermittently over the weekend most likely secondary to hospital-acquired delirium, exacerbated by anesthesia and opioid medications
MRI without acute abnormalities-chronic infarcts noted-underlying vascular dementia
Zyprexa 2.5 mg was started which has been helpful
Patient and family said they have been feeling fine with Zyprexa with no further agitation episodes
#Other medical conditions
Nonischemic myocardial injury following vascular intervention/bypass-troponin trended to peak 0.669 since trended down,consistently chest pain free throughout event
Cardio eval appreciated Stable from a cardiac standpoint status-post right femoral bypass, outpt cardio follow up recommended
IgA Gammopathy Unclear Significance/Etiology------hematology eval appreciated outpatient follow up recommended
Hypertension-cont Amlodipine Metoprolol with holding parameters
Diabetes type 2-sliding scale,Novolog 5U discontinued d/t hypoglycemia-Lantus 16U-monitor and titrate insulin regimen as necessary
Moderate AAS/MR-Outpatient cardiology follow-up
BPH---Continue Flomax and finasteride,Flomax dose increased as per Nephro, cont
Stage 1 bilateral heel pressure injury-cont local wound care
Updated evaluations by PT/OT-recommended SNF-case management aware awaiting bed at [facility]-
As per outpatient case manager
D/C plan: [facility] today when an auth is obtained. Pt's daughter stated she will transport her father to [facility].
DVT ppx heparin
DNR
Anticipated Discharge: Within 24 hours
Subjective/Interval History
-
Date of Service: July 23, 2024
No active issues, patient walking with the help of a walker, consuming carb controlled diet, no agitation or confusion
Objective Data
-
Labs:
Laboratory Results
07/23/24
05:30
WBC 7.7
Hgb 8.8 L
Hct 26.5 L
Plt Count 239
Sodium Pending
Potassium Pending
Chloride Pending
Carbon Dioxide Pending
BUN Pending
Creatinine Pending
Glucose Pending
Calcium Pending
Vital Signs:
Vital Signs
Temp Pulse Resp BP Pulse Ox
98.8 F 63 17 147/57 98
07/23/24 03:10 07/23/24 03:10 07/23/24 03:10 07/23/24 03:10 07/23/24 03:10
I&O
07/22/24 07/23/24 07/24/24
06:59 06:59 06:59
Intake Total 3650 / 3650 900 / 900
Output Total 2029 1650 / 1650
Balance 1620 / 1620 -750 / -750
Review of Systems
-
All other systems: Reviewed and negative
Physical Exam
-
General: No Apparent Distress, Comfortable and Conversant
Respiratory: Clear to Auscultation; Negative Wheezes, Rales or Rhonchi
Cardiac: Regular Rhythm, S1/S2 and Other (systolic murmur at LLSB and Aortic area)
GI: Soft, Nontender, Nondistended and Normal Bowel Sounds
Musculoskeletal: No Clubbing, No Cyanosis and Other ( (Right leg slightly swollen as compared to left given the recent right FEA and lower extremity bypass with vein, pedal pulses palpable, posterior tibial pulses palpable, incisions healing well))
Skin: Warm and Dry
Neuro: Awake, Oriented and Nonfocal/Grossly Intact
Psych: Calm and Intact Judgement/Insight
[2024-07-23 07:15] VITALS: BP 165/60
[2024-07-23 07:19] LABS: Blood Urea Nitrogen 35 mg/dl (9-20); Estimated Creatinine Clearance 25 ml/min; Glucose 132 mg/dl (70-99)
[2024-07-23 07:20] LABS: Calcium 8.6 mg/dl (8.4-10.2); Carbon Dioxide 25 mmol/L (22-30); Chloride 110 mmol/L (98-107); Potassium 4.5 mmol/L (3.5-5.1); Sodium 140 mmol/L (135-145); eGFR 30.85
[2024-07-23] MEDS: LOW STRENGTH ASPIRIN 81 MG PO (08:08)
[2024-07-23] MEDS: PLAVIX 75 MG PO (08:08)
[2024-07-23] MEDS: PROTONIX 40 MG PO (08:08)
[2024-07-23] MEDS: SENOKOT-S 1 TABLET PO (08:09)
[2024-07-23] MEDS: PROSCAR 5 MG PO (08:09)
[2024-07-23] MEDS: SODIUM BICARBONATE 1300 MG PO (08:09)
[2024-07-23] MEDS: NORVASC 10 MG PO (08:09)
[2024-07-23] MEDS: FLOMAX 0.4 MG PO (08:09)
[2024-07-23] MEDS: IMDUR (EXTENDED RELEASE) 30 MG PO (08:09)
[2024-07-23] MEDS: VITAMIN D3 (cholecalciferol) 25 MCG PO (08:10)
[2024-07-23] MEDS: LOPRESSOR 50 MG PO (08:10)
[2024-07-23] MEDS: HEPARIN 5000 UNITS SC (08:11)
[2024-07-23] MEDS: NOVOLOG FLEXPEN-LOW RESISTANCE SC (08:18)
[2024-07-23 08:19] LABS: Glucose - Point of Care 130 mg/dl (70-99)
[2024-07-23 11:24] LABS: Glucose - Point of Care 251 mg/dl (70-99)
[2024-07-23 12:00] VITALS: BP 125/60
[2024-07-23] MEDS: NOVOLOG FLEXPEN-LOW RESISTANCE 3 UNITS SC (12:28)
--- NOTE | 2024-07-23 13:00 | CM ---
Addendum entered by Boyd Lopez 07/23/24 14:06:
CM initiated an auth with [employer], spoke to renal case manager Carina and based on pt's clinical pt is approved for SNF level of care at [facility] from today 07/23/24 till 07/29/24 with NRD and LCD 07/29/24. Auth is: [id number]. For review: [phone].
Auth information forwarded to [facility] medical affairs director and she confirmed that pt is accepted for admission today.
Pt's daughter confirmed she will transport her father to [facility].
[facility] nursing report: [phone]
Discharge instructions fax: [phone]
D/C plan: [facility] today. Daughter to transport.
Original Note:
CM following re: discharge planning.
Reviewed pt's chart, met with pt and pt's daughter at bedside.
Both pt and her daughter are aware that [facility] and [facility] offered a bed and they preferred [facility]. CM spoke to [facility] medical affairs director and she confirmed they do have a bed available and pt will be accepted today
when an auth is obtained.
IMM reviewed, placed on chart, pt has a copy.
According to pt is medically stable to be discharged today. CM is initiating an auth.
D/C plan: [facility] today when an auth is obtained. Pt's daughter stated she will transport her father to [facility].
CM will follow to assist pt with discharge to [facility].
[2024-07-23 14:57] VITALS: BP 156/57
--- NOTE | 2024-07-23 15:36 | W.PN.NEPH.PH ---
Today's Communication / Plan
-
ok for d/c
Assessment/Plan
-
Assessment
CKD 4 (2.0)
Peripheral arterial disease
Hypertension
Diabetes mellitus type 2
Tobacco use
Moderate , MR
Right leg pain, RLE bypass 07/18
Plan
Creatinine better at 2.1
Nonoliguric with hinton, replaced for retention-f/u
Hemodynamically stable on antihypertensives
Maintain escalated flomax dosage
met acidosis stable on po bicarb
monitor daily wts
d/c to SNF today
bmp in 1week
f/u Dr Amor
-
-
Date of Service: July 23, 2024
CC / HPI / ROS
-
Chief Complaint:
PAD
History of Present Illness:
CKD stage IV with a PAD ischemic limb potential requiring vascular intervention
DONALD/Cr better at 2.1
s/p RLE bypass
BP stable on antihypertensive
hinton in place for retention-failed VT
Review of Systems:.
No chest pain or SOB
Labs
-
Labs:
WBC 7.7 10^3/uL (4.8-10.8) 07/23/24 05:30
RBC 2.89 10^6/uL (4.70-6.10) L 07/23/24 05:30
Hgb 8.8 g/dL (13.0-18.0) L 07/23/24 05:30
Hct 26.5 % (39.0-52.0) L 07/23/24 05:30
Plt Count 239 10^3/uL (130-400) 07/23/24 05:30
Sodium 140 mmol/L (135-145) 07/23/24 05:30
Potassium 4.5 mmol/L (3.5-5.1) 07/23/24 05:30
Chloride 110 mmol/L (98-107) H 07/23/24 05:30
Carbon Dioxide 25 mmol/L (22-30) 07/23/24 05:30
BUN 35 mg/dl (9-20) H 07/23/24 05:30
Creatinine 2.1 mg/dL (0.7-1.3) H 07/23/24 05:30
eGFR 30.85 07/23/24 05:30
Glucose 132 mg/dl (70-99) H 07/23/24 05:30
Calcium 8.6 mg/dl (8.4-10.2) 07/23/24 05:30
Phosphorus 2.8 mg/dl (2.5-4.5) 07/18/24 06:30
Albumin 3.7 g/dl (3.5-5.0) 07/08/24 18:34
Physical Exam
-
Vital Signs:
Vital Signs
Temp Pulse Resp BP Pulse Ox
98.0 F 63 17 156/57 99
07/23/24 14:57 07/23/24 14:57 07/23/24 14:57 07/23/24 14:57 07/23/24 14:57
Cardiovascular:: Regular rate and rhythm
Respiratory:: Bilateral: CTA
Lung Excursion:: Normal
Extremity Edema:: None: Bilateral: (trace on right leg)
Hinton Catheter: Yes
--- NOTE | 2024-07-23 16:41 | W.DCSUMMARY ---
Discharge Summary
Discharge Data
Date of Admission: 07/10/24
Date of Discharge: 07/23/24
-
Pending Results: No
Hospital Course
Discharging Physician :
Pankaj Garcia
Disposition :
USP/SNF
Primary care physician :
Birgit Gardner MD
Principal Discharge diagnosis :
Acute limb ischemia of right lower extremity
S/p right femoral endarterectomy/profundoplasty with saphenous vein patch angioplastywith saphenous vein patch angioplasty + right femoral to below the knee popliteal artery bypass with reversed ipsilateral greater saphenous vein conduit
Chronic Discharge diagnosis :
ASCVD (CAD, Carotid Disease, PAD, TIA)
Hypertension
DM-II
CKD IV
Hypothyroidism
BPH
NAFLD
Anemia of CKD
Rosacea
Nephrolithiasis
Hospital Course :
#Acute limb ischemia of right lower extremity
S/p right femoral endarterectomy/profundoplasty with saphenous vein patch angioplastywith saphenous vein patch angioplasty + right femoral to below the knee popliteal artery bypass with reversed ipsilateral greater saphenous vein conduit
Stitches are healing well with no signs of infection
As per vascular surgery can continue aspirin 81 mg, allergic to statins so started on ezetimibe, recommended elevation of right lower extremity to help with postop edema
Follow-up with vascular surgery on outpatient basis
PT OT recommended SNF
Pedal pulses palpable
#CKD stage IV
Acute urinary retention, nephro evaluation appreciated, Boudreaux's was placed for acute urinary retention
Trial of void failed on 07/21/24-currently has Boudreaux's in place, creatinine stable at 2.3
Hemodynamically stable
Patient to follow-up with his urologist regarding acute urinary retention and Boudreaux's
#Delirium/sundowning
Patient had altered mental status intermittently most likely secondary to hospital-acquired delirium, exacerbated by anesthesia and opioid medications
MRI without acute abnormalities-chronic infarcts noted-underlying vascular dementia
Zyprexa 2.5 mg was started which was helpful
Discontinue over discharge
Important imaging findings :
CTA abdomen IMPRESSION: 07/09/2024
1. RIGHT LOWER EXTREMITY: Heavily calcified plaque near the origin of the right external iliac artery, associated with high-grade greater than 75% stenosis. Greater than 75% stenosis at the origin of the right internal iliac artery. Calcified common
femoral plaque, associated with approximately 75% stenosis. Multifocal high-grade stenoses throughout the right SFA. Areas of focal SFA occlusion are not excluded due to heavily calcified plaque. Multifocal 50-75% stenoses within the right popliteal
artery. Right anterior tibial artery is occluded. Posterior tibial and peroneal arteries are patent to the level of ankle.
2. LEFT LOWER EXTREMITY. Approximately 50% stenosis within the left common iliac artery. Multifocal 50-75% stenoses within the left external iliac and common femoral arteries. Left SFA is occluded at its origin and along its length, with
reconstitution of the popliteal artery. Multifocal 50-75% stenoses of the left popliteal artery. Left anterior tibial artery is occluded near its origin. Posterior tibial and peroneal arteries are patent.
3. Ulcerated plaque throughout the abdominal aorta. Mild stenosis near the origin of the celiac axis, estimated 50-75%. SMA and SARAH are patent.
4. Severe coronary arterial calcification. Please correlate with symptoms of and risk factors for coronary artery disease, with further workup as clinically appropriate.
Bilateral vascular ultrasound 07/10/2024
IMPRESSION:
Patent bilateral greater and small saphenous veins with no evidence of superficial thrombosis.
Head CT 07/10/2024
IMPRESSION:
There are moderate changes of cortical atrophy and chronic ischemic disease, stable from prior study. There are no acute findings
Brain MRI 07/12/2024
IMPRESSION:
1. No MRI evidence for acute infarct or intracranial hemorrhage.
2. SEVERE WHITE MATTER LEUKOARAIOSIS in the frontal and parietal lobes.
3. SMALL CHRONIC TRANSCORTICAL INFARCTS in the right frontal and right parietal lobes.
4. 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
5. Mild to moderate diffuse cerebral and cerebellar volume loss.
Procedure findings :
Right lower extremity acute limb ischemiaS/p right femoral endarterectomy/profundoplasty with saphenous vein patch angioplasty + right femoral to below the knee popliteal artery bypass with reversed ipsilateral greater saphenous vein conduit
Discharge Plan
-
Patient Disposition: Residential/SNF
Discharge Diagnosis/Procedures: Acute limb ischemia of right lower extremity s/p R femoral endarterectomy/with saphenous vein patch angioplastywith saphenous vein patch angioplasty + right femoral to below the knee popliteal artery bypass with
reversed ipsilateral greater saphenous vein conduit
Condition: Fair
Diet: Diabetic, Carb Controlled
Activity: No strenuous activity
Driving Restrictions: Not until seen by your Dr
Bathing Restrictions: OK to Shower
Activity Restrictions/Additional Instructions:
Follow up with primary care provider in 1 week of discharge, keep your appointment with Vascular Surgery, follow up neurology and neuropsychiatry in 2-4 weeks of discharge, and Hematology in 3-6 months.
Stand Alone Forms: Vascular Surg Discharge Instr
Referrals:
Birgit Gardner MD [Family Provider] - in one week
Jonathan Narvaez PSY [Specified Professional Personl] - in two to four weeks
Tonio Mcconnell MD [Active] - in two to four weeks
Kaylan Hernandez CRNP [Specified Professional Personl] - 08/02/24 2:00 pm (Vascular surgery office follow-up)
Justin Corrales MD [Active] - ([facility] follow up - call to schedule follow up 3-6 months)
Prescriptions:
Continued
ezetimibe 10 MG tablet
10 mg PO DAILY
nitroglycerin 0.4 MG tablet, sublingual
0.4 mg sublingual [id number] PRN (Reason: chest pain) Qty: 25 2RF
amlodipine 10 MG tablet
10 mg PO QPM
metoprolol tartrate 25 MG tablet
50 mg PO BID
cholecalciferol (vitamin D3) 1,000 UNITS tablet
1,000 units PO DAILY
isosorbide mononitrate 30 MG tablet extended release 24 hr
30 mg PO DAILY
nateglinide 120 mg Tablet
120 mg PO AC
aspirin 81 mg Tablet,Chewable
81 mg PO DAILY
finasteride 5 mg Tablet
5 mg PO QPM
sodium bicarbonate 650 MG tablet
1,300 mg PO BID
acetaminophen [Tylenol] 325 mg Tablet
650 mg PO Q6HPRN PRN (Reason: mild pain)
insulin glargine [Lantus Solostar U-100 Insulin] 100 unit/mL (3 mL) Insulin Pen
16 unit SC HS
silodosin 8 mg Capsule
8 mg PO QPM
Discharge Orders:
Discharge Patient (As Directed); Ordered 07/23/24
Ordered By: Magdaleno Munoz
Discharge Date and Time
Discharge Date/Time: 07/23/24 16:33
Print Language: MALAYSIAN
== END 2024-07-23 16:33 | DRG 252 ==
LOC: 2 NORTH 08:25
PROVIDERS: Anesthesiology; Emergency Medicine; Internal Medicine; Nurse Practitioner; Nurse Practitioner Acute Care; Nurse Practitioner Family; Specialist; Student in an Organized Health Care Education/Training Program; ADMITTING PHYSICIAN Hospitalist; ATTENDING PHYSICIAN Hospitalist; CONSULT PHYSICIAN Internal Medicine; CONSULT PHYSICIAN Internal Medicine Critical Care Medicine; CONSULT PHYSICIAN Specialist; EMERGENCY PHYSICIAN Emergency Medicine; FAMILY PHYSICIAN Family Medicine; OTHER PHYSICIAN Internal Medicine Hematology & Oncology; OTHER PHYSICIAN Psychiatry & Neurology Neurology; OTHER PHYSICIAN Surgery Vascular Surgery
PROC: B41D1ZZ Fluoroscopy of Aorta and Bilateral Lower Extremity Arteries using Low Osmolar Contrast (ICD-10-PCS; 2024-07-15)
PROC: B41C1ZZ Fluoroscopy of Pelvic Arteries using Low Osmolar Contrast (ICD-10-PCS; 2024-07-15)
PROC: 047H34Z Dilation of Right External Iliac Artery with Drug-eluting Intraluminal Device, Percutaneous Approach (ICD-10-PCS; 2024-07-15)
PROC: 30233N1 Transfusion of Nonautologous Red Blood Cells into Peripheral Vein, Percutaneous Approach (ICD-10-PCS; 2024-07-18)
PROC: 041K09L Bypass Right Femoral Artery to Popliteal Artery with Autologous Venous Tissue, Open Approach (ICD-10-PCS; 2024-07-18)
PROC: 04UK07Z Supplement Right Femoral Artery with Autologous Tissue Substitute, Open Approach (ICD-10-PCS; 2024-07-18)
PROC: 04CK0ZZ Extirpation of Matter from Right Femoral Artery, Open Approach (ICD-10-PCS; 2024-07-18)
DX: E11.51 Type 2 diabetes mellitus with diabetic peripheral angiopathy without gangrene (principal); G93.41 Metabolic encephalopathy; R57.8 Other shock; N18.4 Chronic kidney disease, stage 4 (severe); F05 Delirium due to known physiological condition; I5A Non-ischemic myocardial injury (non-traumatic); I70.221 Atherosclerosis of native arteries of extremities with rest pain, right leg; I25.10 Atherosclerotic heart disease of native coronary artery without angina pectoris; I12.9 Hypertensive chronic kidney disease with stage 1 through stage 4 chronic kidney disease, or unspecified chronic kidney disease; E11.22 Type 2 diabetes mellitus with diabetic chronic kidney disease; D63.1 Anemia in chronic kidney disease; Z66 Do not resuscitate; I70.0 Atherosclerosis of aorta; N40.1 Benign prostatic hyperplasia with lower urinary tract symptoms; R33.8 Other retention of urine; E11.65 Type 2 diabetes mellitus with hyperglycemia; I83.91 Asymptomatic varicose veins of right lower extremity; D47.2 Monoclonal gammopathy; I74.3 Embolism and thrombosis of arteries of the lower extremities; L89.621 Pressure ulcer of left heel, stage 1; L89.611 Pressure ulcer of right heel, stage 1; T41.1X5A Adverse effect of intravenous anesthetics, initial encounter; T40.2X5A Adverse effect of other opioids, initial encounter; F01.50 Vascular dementia, unspecified severity, without behavioral disturbance, psychotic disturbance, mood disturbance, and anxiety; I70.8 Atherosclerosis of other arteries; K76.0 Fatty (change of) liver, not elsewhere classified; E78.00 Pure hypercholesterolemia, unspecified; E06.3 Autoimmune thyroiditis; K21.9 Gastro-esophageal reflux disease without esophagitis; I08.0 Rheumatic disorders of both mitral and aortic valves; J44.9 Chronic obstructive pulmonary disease, unspecified; F17.210 Nicotine dependence, cigarettes, uncomplicated; E55.9 Vitamin D deficiency, unspecified; I25.2 Old myocardial infarction; Z86.73 Personal history of transient ischemic attack (TIA), and cerebral infarction without residual deficits; Z95.5 Presence of coronary angioplasty implant and graft; Z95.820 Peripheral vascular angioplasty status with implants and grafts; Z79.4 Long term (current) use of insulin; Z79.82 Long term (current) use of aspirin; Z82.49 Family history of ischemic heart disease and other diseases of the circulatory system
CPT/HCPCS: 88304; 88311; 37221; 70450; 70551; 75625; 75635; 75716; 80048; 80053; 81003; 81015; 82607; 82728; 82746; 82784; 82962; 83036; 83521; 83735; 84100; 84155; 84165; 84425; 84443; 84484; 85018; 85025; 85027; 85045; 85610; 85730; 86334; 86850; 86900; 86901; 86920; 87086; 93005; 93306; 93970; 96360; 96361; 96372; 97162; 97164; 97167; 97530; 97535; 99285; 99406; C1725; C1769; C1874; C1887; C1894; P9016; Q9967

== ENCOUNTER → 2024-09-19 08:24 | Outpatient (REF) | payer OTHER, SELFPAY | LOC: RAD 08:24 | PROVIDERS: ATTENDING PHYSICIAN Registered Nurse; FAMILY PHYSICIAN Family Medicine | DX: I73.9 Peripheral vascular disease, unspecified (principal) | CPT/HCPCS: 93922; 93925 ==